=== PATIENT | male | born 1935 | race Caucasian/White ===

== ENCOUNTER 2020-01-27 18:03 | Emergency (ER) | payer MEDICARE, SELFPAY ==
[2020-01-27 18:05] VITALS: BP 144/75; PULSE 73; RESP 14; TEMP 36.6; O2SAT 98
--- NOTE | 2020-01-27 18:26 | ED.EYEPROB ---
HPI - Eye Problem General Chief complaint: Eye Problems Stated complaint: bleeding out of eye. Source: patient Mode of arrival: ambulatory Limitations: no limitations History of Present Illness HPI Narrative: this is an 84-year-old male patient presents to the emergency department with some recent left eyelid surgery, is currently on aspirin and has had a a dry piece of blood on his left lower eyelid with a subconjunctival redness and hematoma no visual disturbance no fever or chills no other source of bleeding. chief complaint: other ( Mild bleeding from his left eyelid and sub conjunctival hematoma) Onset (ago): hour(s) Onset description: gradual Duration: improved Location: left eye Eye Symptoms: redness Place: home Mechanism: other ( recent eyelid surgery on the left eye) Severity: mild Associated symptoms: none Treatments Prior to Arrival: none Related Data Home Medications Medication Instructions Recorded Confirmed Centrum Silver Men 1 tablet PO DAILY 09/13/19 01/27/20 donepezil 10 mg PO DAILY 09/13/19 01/27/20 ipratropium-albuterol 3 ml INHALATION Q4H PRN 09/13/19 01/27/20 lisinopril 5 mg PO DAILY 09/13/19 01/27/20 memantine 10 mg PO DAILY 09/13/19 01/27/20 metformin 500 mg PO DAILY 09/13/19 01/27/20 pantoprazole 40 mg PO DAILY 09/13/19 01/27/20 ropinirole 4 mg PO HS 09/13/19 01/27/20 tamsulosin 0.4 mg capsule 0.4 mg PO .twice daily cap 09/22/19 01/27/20 Allergies Allergy/AdvReac Type Severity Reaction Status Date / Time Penicillins Allergy Intermediate Unknown Verified 11/10/19 08:00 Review of Systems Review of Systems: All systems reviewed & are unremarkable except as noted in HPI and below PMFSH Past Medical History Medical History Arthritis Community acquired pneumonia (~09/13/19) Diabetes mellitus Hypertension Surgical History Surgical History History of back surgery History of knee replacement Hx of cholecystectomy Hx of tonsillectomy S/P cataract surgery Family History Family History Mother Family history of coronary artery disease Father , father of metastatic lung cancer Family history of coronary artery disease Other Family history of malignant neoplasm Social History Social History Smoking status: Never smoker Alcohol intake: never Substance use: never Gender identity (if verbalized by the patient): Male Spiritual care concerns: No Agree to blood products: Yes Exam Const: General: no acute distress HENMT: Head: normal to inspection Other: Left subconjunctival hematoma Eyes: Conjunctivae: conjunctivae normal Pupils: Equal, round and reactive pupils present Neck: Neck: normal visual inspection Chest: Chest palpation & inspection: normal inspection of the chest Cardio: Rate: regular rate Rhythm: regular rhythm Skin: General skin exam: normal color Rashes: no rashes Neuro: General: patient oriented x3, moves all extremities, no meningeal signs and no focal motor deficits Extrem: General: normal to inspection Psych: Mental Status: mental status grossly normal Thought content: Yes Normal thought content present Course Course Emergency Course: patient advised to stop his aspirin, and the patient told me that he had stopped the aspirin already, there is a dry piece of blood that is cleansed and has a subconjunctival hematoma with no visual disturbances. Critical Care Time Critical Care Time Critical Care Time: No Discharge Plan Discharge Clinical Impression: Subconjunctival hemorrhage Patient Disposition: Home, Self-Care Condition: Stable Instructions: Antibiotic Form, Subconjunctival Hemorrhage (ED) Additional Instructions: Follow-up with information receptionist as soon as possible
[2020-01-27 18:37] VITALS: RESP 15; O2SAT 98
[2020-01-27] MEDS: CIPROFLOXACIN HCL 0.3% OP SOLN 2.5 ML BTL 2 DROP EACH EYE (18:37)
== END 2020-01-27 18:39 | disposition home or self-care (01) ==
PROVIDERS: Emergency Provider Emergency Medicine; PCP Family Medicine
DX: H11.32 Conjunctival hemorrhage, left eye (principal)
CPT/HCPCS: 99283

== ENCOUNTER 2020-05-12 19:08 | Emergency (ER) | payer MEDICARE, SELFPAY ==
--- NOTE | ~2020-05-12 | CT_ITS ---
EXAMINATION: CT thoracic lumbar wo con EXAM DATE: 05/12/2020 20:30 INDICATION: Sudden onset low back pain, leg weakness. TECHNIQUE: Spiral CT thoracolumbar spine was performed without contrast. Axial, coronal and sagittal images of the thoracic spine were reviewed. Axial, coronal and sagittal images of the lumbar spine we re reviewed. The dose-length product (DLP) for this examination was 2170.78 mGy-cm. The exposure was tailored according to patient size (auto mA exposure control), and iterative reconstruction (ASIR) w as used as additional dose reduction technique. Comparison made to prior lumbar spine x-ray 9 FINDINGS: THORACIC SPINE: The vertebral bodies are aligned in the AP dimension. Small to moderate-sized thoraci c endplate osteophytes. There are no acute fractures identified. No endplate erosive change. Up to mo derate lower thoracic neural foraminal stenosis at T10-11 and T11-12. No evidence of significant cent ral canal stenosis. Paraspinal soft tissue is unremarkable. Right nephrolithiasis. There are cholecys tectomy clips. LUMBAR SPINE: There is mild to moderate lumbar dextroscoliosis. There is moderate to severe disc dise ase L-1-L5. L4 and L5 laminectomies. There is 4 mm retrolisthesis L3 on L4 and L4 on L5. No endplate erosive change. There are no acute fractures identified. Level by level evaluation: L1-L2: There is a mild to moderate diffuse disc bulge. Facet arthropathy: Mild to moderate. Neural foraminal stenosis: Mild to moderate right, mild left. Central canal stenosis: Mild to moderate. L2-L3: There is a moderate diffuse disc bulge. Facet arthropathy: Mild to moderate. Neural foraminal stenosis: Mild bilateral. Central canal stenosis: Mild to moderate. L3-L4: There is a moderate to large diffuse disc bulge. Facet arthropathy: Moderate to severe. Neural foraminal stenosis: Moderate to severe bilateral. Central canal stenosis: Moderate to severe. L4-L5: There is a moderate diffuse disc bulge. Facet arthropathy: Moderate to severe. Neural foraminal stenosis: Moderate to severe left, moderate right. Central canal stenosis: Mild to moderate, some posterior decompression. L5-S1: There is a moderate diffuse disc bulge. Facet arthropathy: Severe. Neural foraminal stenosis: Moderate to severe bilateral. Central canal stenosis: Moderate, some posterior decompression. Lumbar spine appears unchanged compared to prior study. IMPRESSION: 1. Advanced lumbar spondylosis. 2. Mild to moderate thoracic spondylosis. 3. No acute findings. Reviewed, dictated and finalized at location A.
[2020-05-12 19:19] VITALS: BP 151/76; PULSE 66; RESP 18; TEMP 36.5; O2SAT 96
[2020-05-12 19:42] LABS: Add Urine Microscopic? YES; Appearance Urine Clear (Clear); Bilirubin Urine Negative (Negative); Blood Urine Negative (Negative); Color Urine Yellow (Yellow); Glucose Urine UA Trace (Negative); Ketones Urine Negative (Negative); Leukocyte Esterase Ur Negative (Negative); Nitrate Urine Negative (Negative); Protein Urine Negative (Negative); Specific Grav Ur >= 1.030 (1.010-1.020)
[2020-05-12 19:47] LABS: Bacteria Urine None seen /hpf; Mucus Urine None seen /lpf; RBC Urine None seen /hpf (0-2); Squamous Epithelial Cell Urine Rare /hpf (Few); WBC Urine None seen /hpf (0-3)
--- NOTE | 2020-05-12 19:55 | ED.BACK ---
HPI - Back Pain/Injury General Chief Complaint: Back Pain/Injury Stated Complaint: back pain Time Seen by Provider: 05/12/20 19:55 Source: patient Mode of arrival: ambulatory Limitations: no limitations History of Present Illness HPI Narrative: 84-year-old man with a history of back pain jazzy distant history of back surgery comes in today complaining of low back pain that started when he went to lay down earlier today. Patient states that he feels weak in his legs but he has no perineal numbness, radiating pain, numbness in his lower extremities, and has had no recent trauma. MD elicited complaint: back pain Pertinent past history: prior back pain and back surgery Onset (ago): hour(s) (1) Timing: constant Severity: severe Similar Symptoms Previously: Yes Quality: sharp and aching Location: lumbar spine Radiation: none Exacerbating factors: movement and walking Relieving factors: none Context: bending Related Data Home Medications Medication Instructions Recorded Confirmed Centrum Silver Men 1 tablet PO DAILY 09/13/19 05/12/20 ipratropium-albuterol 3 ml INHALATION Q4H PRN 09/13/19 05/12/20 metformin 500 mg PO DAILY 09/13/19 05/12/20 ropinirole 4 mg PO HS 09/13/19 05/12/20 tamsulosin 0.4 mg capsule 0.4 mg PO .twice daily cap 09/22/19 05/12/20 Allergies Allergy/AdvReac Type Severity Reaction Status Date / Time Penicillins Allergy Intermediate Unknown Verified 01/28/20 14:42 Review of Systems Constitutional: Constitutional: Denies chills and Denies fever(s) ENT: Denies dysphagia, Denies nasal congestion and Denies sore throat Cardiovascular: Cardiovascular: Denies chest pain and Denies radiating jaw, neck or arm pain Respiratory: Respiratory: Denies cough, Denies dyspnea and Denies wheezing Gastrointestinal: Gastrointestinal: Denies abdominal pain, Denies diarrhea, Denies nausea and Denies vomiting Musculoskeletal: Musculoskeletal: Reports as per HPI, Denies arthralgias, Denies joint swelling and Reports muscle cramps Integumentary/Breasts: Skin/Breast: Denies pruritus, Denies erythema and Denies rash Neurologic: Denies vertigo, Denies dizziness, Denies syncope, Denies focal weakness and Reports weakness Hematologic/Lymphatic: Hematologic/Lymphatic: Denies easy bleeding and Denies easy bruising Allergic/Immunologic: Allergic/Immunologic: Denies lip swelling and Denies wheezing PMFSH Past Medical History Medical History Arthritis Community acquired pneumonia (~09/13/19) Diabetes mellitus Hypertension Surgical History Surgical History History of back surgery History of knee replacement Hx of cholecystectomy Hx of tonsillectomy S/P cataract surgery Social History Social History Smoking status: Never smoker Alcohol intake: never Substance use: never Gender identity (if verbalized by the patient): Male Spiritual care concerns: No Agree to blood products: Yes Exam Const: General: healthy appearing and alert Orientation/consciousness: patient oriented x3 Limitations: no limitations Other: Moderate acute distress HENMT: Head: normal to inspection Face and sinus: normal facial exam Mouth: Yes moist mucous membranes Throat: posterior oropharynx normal Eyes: Conjunctivae: conjunctivae normal Pupils: Equal, round and reactive pupils present EOM: EOMs intact bilaterally Resp: Effort & Inspection: normal respiratory effort and not labored Auscultation: clear to auscultation bilaterally, no rales, no rhonchi and no wheezes Cardio: Rate: regular rate Rhythm: regular rhythm Heart sounds: no murmurs GI: Inspection: non-distended Auscultation: normal bowel sounds Other: nontender, nondistended, no masses Skin: General skin exam: normal color, no jaundice and no pallor Rashes: no rashes Neuro: General: patient orient
[2020-05-12] MEDS: methylPREDNISolone ACETATE 40 MG/ML VIAL 80 MG IM (20:08)
[2020-05-12 21:15] VITALS: BP 162/76; PULSE 69; RESP 18; O2SAT 98
== END 2020-05-12 21:20 | disposition home or self-care (01) ==
PROVIDERS: Emergency Provider Emergency Medicine; PCP Family Medicine
DX: M54.5 Low back pain (principal); E11.9 Type 2 diabetes mellitus without complications; I10 Essential (primary) hypertension
CPT/HCPCS: 72128; 72131; 81001; 87086; 96372; 99283; 99284; J1030

== ENCOUNTER 2020-05-22 13:13 | Outpatient (RCR) | payer MEDICARE, SELFPAY ==
--- NOTE | 2020-05-22 14:07 | PTOPEVAL ---
Thank you for referring Neil Wharton to [facility].? The patient is scheduled to be seen for therapy? __2__x/week for __12_ visits. Please review, sign, date and return this plan of care SUZANNE. I agree with and certify that the following plan of care is medically necessary. Referring Physician Date Admitting Provider: Attending Provider: Beau Greco MD Referring Provider: *PT Outpatient Evaluation Start: 05/22/20 13:00 Freq: Status: Active Protocol: Document 05/22/20 13:00 ANTONI (Rec: 05/22/20 14:05 ANTONI [id number]) Therapy Assessment Status Assessment Status Assessment Status Evaluation Outpatient Past Medical History Cardiovascular History Hx Coronary Artery Disease Yes Hx Hypertension Yes Respiratory History Hx Sleep Apnea Yes Gastrointestinal History Hx Cholecystectomy Yes Hx Gastroesophageal Reflux Disease Yes Musculoskeletal History Hx Back Injury Yes Hx Back Pain Yes Endocrine History Hx Diabetes Yes HEENT History Hx Cataracts Yes Psychosocial History Hx Depression Yes Evaluation Information Problem Diagnosis low back pain, spondylosis with myelopathy or radiculopathy Onset 05/17/20 Additional Evaluation Detail Oswestry= 54% Subjective Information Pt. reports having years of Query Text:As Reported By Patient/ low back pain. He states that Family he had recent xray that revealed severe arthritis in the lumbar spine. He reports that pain has worsened and he can only stand for approximately 5 minutes before having to sit due to pain. He reports that he requires use of a cane due to pain wtih standing. He reports that he has no difficulty with sleeping at night. He reports that he does sleep in a recliner. He reports that his goal is to be able to stand longer and decrease his low back pain. 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
--- NOTE | 2020-08-11 11:30 | PCPTNOTE ---
Mr. Wharton attended a total of 6 treatment sessions from 05/22/20 to 06/08/20. He has failed to return to the clinic and will be discharged from our care. Refer to patients last daily note for discharge status. Thank you for the referral of this patient. Uriel Escalante, MPT
== END 2020-06-08 14:49 | disposition home or self-care (01) ==
LOC: CHSPT 13:13
PROVIDERS: PCP Family Medicine; Visit Provider Family Medicine
DX: M47.816 Spondylosis without myelopathy or radiculopathy, lumbar region (principal)
CPT/HCPCS: 97014; 97110; 97161; 97530; G0283

== ENCOUNTER 2020-08-02 14:08 | Outpatient (CLI) | payer MEDICARE, SELFPAY ==
[2020-08-02 14:19] LABS: Basophils Absolute Auto 0.05 K/mm3 (0.00-0.10); Basophils Percent Auto 0.8 % (0.0-1.0); Eosinophils Absolute Auto 0.07 K/mm3 (0.02-0.50); Eosinophils Percent Auto 1.2 % (1.0-6.0); Hematocrit 32.2 % (37.0-46.0); Hemoglobin 10.7 g/dL (12.4-15.3); Immature Granulocyte Absolute 0.02 K/mm3 (0.00-0.00); Immature Granulocyte Percent A 0.3 % (0.0-0.0); Lymphocytes Absolute Auto 1.42 K/mm3 (1.10-4.50); Lymphocytes Percent Auto 23.6 % (18.0-42.0); Mean Corpuscular HGB Conc 33.2 g/dL (32.0-36.0); Mean Corpuscular Hemoglobin 35.3 pg (27.0-31.0); Mean Corpuscular Volume 106.3 fL (78.0-102.0); Mean Platelet Volume 10.3 fl (8.7-11.0); Monocytes Absolute Auto 0.47 K/mm3 (0.10-0.90); Monocytes Percent Auto 7.8 % (2.0-11.0); Neutrophils Percent Auto 66.3 % (50.0-70.0); Nucleated Red Blood Cells Absolute Auto 0.02 K/mm3 (0.00-0.00); Nucleated Red Blood Cells Perc 0.3 % (0-0.0); Platelet Count Result 231 K/mm3 (150-420); Red Blood Count 3.03 M/mm3 (4.70-6.10); Red Cell Distribution Width 16.1 % (11.6-14.4)
[2020-08-02 15:27] LABS: Alanine Aminotransferase 25 U/L (16-63); Albumin Level 4.1 g/dL (3.4-5.0); Alkaline Phosphatase 62 U/L (46-116); Anion Gap 9 mmol/L (8-16); Aspartate Amino Transferase 16 U/L (15-37); Bilirubin,Total 0.8 mg/dL (0.00-1.00); Blood Urea Nitrogen 23 mg/dL (7-18); Calcium 9.1 mg/dL (8.5-10.1); Carbon Dioxide 28 mmol/L (21-32); Chloride 103 mmol/L (98-108); Estimated Glomerular Filt Rate 45; Ferritin 598 ng/mL (26-388); Glucose 120 mg/dL (70-99); Iron 149 ug/dL (65-175); Osmolality Calculated 294 mOsm/kg (285-295); Percent Iron Saturation 52 % (12-57); Potassium 4.3 mmol/L (3.5-5.1); Sodium 140 mmol/L (136-145); Total Protein 6.9 g/dL (6.4-8.2)
[2020-08-02 15:38] LABS: Folic Acid > 20.0 ng/mL (8.6->20); Vitamin B12 > 2000 pg/mL (193-986)
[2020-08-02 17:09] LABS: Thyroid Stimulating Hormone Reflex 1.47 u/IU/mL (0.36-3.74)
[2020-08-09 11:16] LABS: Vitamin D 25 Hydroxy 33 ng/mL (30-100)
== END 2020-08-02 14:09 | disposition home or self-care (01) ==
LOC: CHSLAB 14:09
PROVIDERS: PCP Family Medicine; Visit Provider Family Medicine
DX: R53.1 Weakness (principal); I10 Essential (primary) hypertension; E11.9 Type 2 diabetes mellitus without complications; E55.9 Vitamin D deficiency, unspecified
CPT/HCPCS: 36415; 80053; 82306; 82607; 82728; 82746; 83540; 83550; 84443; 85025

== ENCOUNTER 2020-08-23 18:58 | Emergency (ER) | payer MEDICARE, SELFPAY ==
--- NOTE | ~2020-08-23 | XR_ITS ---
XR chest 1V 08/23/2020 21:32 Indication: Upper respiratory infection. Chest pain with cough. Procedure: Lateral view of the chest Comparison: 08/23/2020 and 09/15/2019 Findings: There is posterior basilar atelectasis. No focal pneumonia or effusion. There are wedge com pression deformities of the upper lumbar spine, likely chronic. Impression: 1: Posterior basilar atelectasis. Reviewed, dictated and finalized at location A. GREASER Impression: 1: Posterior basilar atelectasis.
--- NOTE | ~2020-08-23 | XR_ITS ---
XR chest 1V portable 08/23/2020 19:26 Indication: Chest pain with cough and shortness of breath Procedure: AP portable chest Comparison: Comparison to multiple prior studies sequentially, with oldest reviewed study dated 01/28. Findings: Heart size normal. No focal air space disease, pulmonary edema, pleural effusion or suspect ed pneumothorax. No acute osseous abnormality. Impression: 1: No acute cardiopulmonary disease. Reviewed, dictated and finalized at location A. TENANCE CARPENTER Impression: 1: No acute cardiopulmonary disease.
--- NOTE | 2020-08-23 19:06 | ECG_ITS ---
Measurements Intervals [place] Rate: 80 P: 53 VT: 152 QRS: -34 QRSD: 152 T: 12 QT: 402 QTc: 466 Interpretive Statements SINUS RHYTHM LEFT AXIS DEVIATION RIGHT BUNDLE BRANCH BLOCK VOLTAGE CRITERIA FOR LVH BASELINE ARTIFACT- II, III, AVF ABNORMAL ECG Electronically Signed On 08-24-2020 8:03:17 [employer] by Jony Mix D.O.
[2020-08-23 19:30] LABS: Basophils Absolute Auto 0.03 K/mm3 (0.00-0.10); Basophils Percent Auto 0.4 % (0.0-1.0); Eosinophils Absolute Auto 0.14 K/mm3 (0.02-0.50); Eosinophils Percent Auto 1.7 % (1.0-6.0); Hematocrit 30.8 % (37.0-46.0); Immature Granulocyte Absolute 0.05 K/mm3 (0.00-0.00); Immature Granulocyte Percent A 0.6 % (0.0-0.0); Lymphocytes Absolute Auto 1.31 K/mm3 (1.10-4.50); Lymphocytes Percent Auto 16.1 % (18.0-42.0); Mean Corpuscular HGB Conc 32.5 g/dL (32.0-36.0); Mean Corpuscular Volume 107.7 fL (78.0-102.0); Mean Platelet Volume 10.8 fl (8.7-11.0); Monocytes Percent Auto 8.6 % (2.0-11.0); Neutrophils Absolute Auto 5.9 K/mm3 (1.7-7.2); Neutrophils Percent Auto 72.6 % (50.0-70.0); Platelet Count Result 194 K/mm3 (150-420); Red Blood Count 2.86 M/mm3 (4.70-6.10); Red Cell Distribution Width 16.4 % (11.6-14.4); White Blood Count 8.1 K/mm3 (4.8-10.8)
[2020-08-23 19:47] LABS: Alanine Aminotransferase 17 U/L (16-63); Albumin Level 3.5 g/dL (3.4-5.0); Alkaline Phosphatase 56 U/L (46-116); Anion Gap 6 mmol/L (8-16); Aspartate Amino Transferase 14 U/L (15-37); Bilirubin,Total 0.8 mg/dL (0.00-1.00); Blood Urea Nitrogen 29 mg/dL (7-18); Calcium 8.4 mg/dL (8.5-10.1); Carbon Dioxide 29 mmol/L (21-32); Chloride 105 mmol/L (98-108); Estimated Glomerular Filt Rate 58; Glucose 135 mg/dL (70-99); Osmolality Calculated 297 mOsm/kg (285-295); Potassium 3.7 mmol/L (3.5-5.1); SARS-CoV-2 Ag Negative (Negative); Sodium 140 mmol/L (136-145); Total Protein 6.3 g/dL (6.4-8.2); Troponin I 11.3 ng/L (0.00-60.4)
[2020-08-23 19:49] LABS: BNP 181 pg/mL (0-100)
[2020-08-23 19:50] VITALS: BP 145/76; PULSE 96; RESP 20; TEMP 36.7; O2SAT 95
[2020-08-23 20:50] VITALS: BP 144/66; PULSE 77; RESP 20; O2SAT 98
[2020-08-23 21:50] VITALS: BP 154/69; PULSE 75; RESP 20; O2SAT 97
--- NOTE | 2020-08-23 22:05 | ED.URI ---
HPI - URI/Sore Throat General Chief Complaint: Upper Respiratory Infection Stated Complaint: Cough, trouble breathing Source: patient and family Mode of arrival: ambulatory Limitations: no limitations History of Present Illness HPI Narrative: Patient states he has had a severe cough for the past two days. This has been ongoing and wearing him out. He has had some chest soreness as well. MD elicited complaint: cough Pertinent past history: other (chills) Related Data Home Medications Medication Instructions Recorded Confirmed Centrum Silver Men 1 tablet PO DAILY 09/13/19 08/02/20 ipratropium-albuterol 3 ml INHALATION Q4H PRN 09/13/19 08/02/20 tamsulosin 0.4 mg capsule 0.4 mg PO .twice daily cap 09/22/19 08/02/20 fluticasone propionate [Flonase 2 spray INTRANASAL Q12HR 08/23/20 Allergy Relief] Allergies Allergy/AdvReac Type Severity Reaction Status Date / Time Penicillins Allergy Intermediate Unknown Verified 08/23/20 19:55 Review of Systems Constitutional: Comments: Fatigue secondary to coughing Eyes: Eyes: Reports no additional eye complaints ENT: Reports system reviewed and no additional complaints, except as documented Cardiovascular: Cardiovascular: Reports no additional cardiovascular complaints Respiratory: Respiratory: Reports no additional respiratory complaints Gastrointestinal: Gastrointestinal: Reports no additional gastrointestinal complaints Genitourinary: Genitourinary: Reports no additional male genitourinary complaints Musculoskeletal: Musculoskeletal: Reports no additional musculoskeletal complaints Integumentary/Breasts: Skin/Breast: Reports system reviewed and no additional complaints, except as docu Neurologic: Reports system reviewed and no additional complaints, except as documented Psychiatric: Psychiatric: Reports no additional psychiatric complaints Endocrine: Endocrine: Reports no additional endocrine complaints Hematologic/Lymphatic: Hematologic/Lymphatic: Reports no additional hematologic/lymphatic complaints Allergic/Immunologic: Allergic/Immunologic: Reports no additional allergic/immunologic complaints [facility] Past Medical History Medical History Arthritis Benign essential HTN Community acquired pneumonia (~09/13/19) Diabetes mellitus Hypertension Lumbar spondylosis Type 2 diabetes mellitus without complications Vitamin D deficiency, unspecified Surgical History Surgical History History of back surgery History of knee replacement Hx of cholecystectomy Hx of tonsillectomy S/P cataract surgery Family History Family History Mother Family history of coronary artery disease Father , father of metastatic lung cancer Family history of coronary artery disease Other Family history of malignant neoplasm Social History Social History Smoking status: Never smoker Alcohol intake: never Substance use: never Gender identity (if verbalized by the patient): Male Spiritual care concerns: No Agree to blood products: Yes Exam Const: General: no acute distress and alert Orientation/consciousness: patient oriented x3 HENMT: Head: normal to inspection Face and sinus: normal facial exam Eyes: Conjunctivae: conjunctivae normal Neck: Neck: normal visual inspection Chest: Chest palpation & inspection: normal inspection of the chest Resp: Effort & Inspection: normal respiratory effort Auscultation: clear to auscultation bilaterally Cardio: Rate: regular rate Rhythm: regular rhythm GI: GI Palp: Yes Soft to palpation Auscultation: normal bowel sounds Other: non tender Skin: General skin exam: normal color Neuro: General: patient oriented x3 and moves all extremities Extrem: General: normal to inspection Psych: Ap
[2020-08-23] MEDS: ACETAMINOPHEN/CODEINE (*CRX) 300/30 MG TABLET 1 TAB (22:13)
[2020-08-23] MEDS: AZITHROMYCIN 250 MG TABLET 500 MG PO (22:13)
[2020-08-23 22:20] VITALS: BP 142/70; PULSE 73; RESP 20; O2SAT 97
== END 2020-08-23 22:30 | disposition home or self-care (01) ==
PROVIDERS: Emergency Provider Emergency Medicine; PCP Family Medicine
DX: A37.90 Whooping cough, unspecified species without pneumonia (principal); R53.1 Weakness
CPT/HCPCS: 36415; 71045; 80053; 83880; 84484; 85025; 87426; 93005; 99283; 99284; A9270

== ENCOUNTER 2021-01-17 15:46 | Outpatient (CLI) | payer MEDICARE, SELFPAY ==
--- NOTE | ~2021-01-17 | XR_ITS ---
EXAMINATION: XR chest 2V DATE: 01/17/2021 17:51 INDICATION: Cough and fever TECHNIQUE: PA and lateral views of the chest are obtained. COMPARISON: 08/23/2020 FINDINGS: The lungs are free of acute opacities. There is no pleural effusion or pneumothorax. The ca rdiomediastinal silhouette is normal. There is moderate thoracic spondylosis. IMPRESSION: 1. No acute cardiopulmonary abnormality. Reviewed, dictated and finalized at location A.
[2021-01-17 18:32] LABS: Basophils Absolute Auto 0.01 K/mm3 (0.00-0.10); Basophils Percent Auto 0.3 % (0.0-1.0); Eosinophils Absolute Auto 0.05 K/mm3 (0.02-0.50); Eosinophils Percent Auto 1.6 % (1.0-6.0); Hematocrit 33.1 % (37.0-46.0); Hemoglobin 10.9 g/dL (12.4-15.3); Immature Granulocyte Absolute 0.01 K/mm3 (0.00-0.00); Immature Granulocyte Percent A 0.3 % (0.0-0.0); Lymphocytes Percent Auto 36.1 % (18.0-42.0); Mean Corpuscular HGB Conc 32.9 g/dL (32.0-36.0); Mean Corpuscular Hemoglobin 34.6 pg (27.0-31.0); Mean Corpuscular Volume 105.1 fL (78.0-102.0); Mean Platelet Volume 10.5 fl (8.7-11.0); Monocytes Absolute Auto 0.39 K/mm3 (0.10-0.90); Monocytes Percent Auto 12.8 % (2.0-11.0); Neutrophils Absolute Auto 1.5 K/mm3 (1.7-7.2); Neutrophils Percent Auto 48.9 % (50.0-70.0); Platelet Count Result 180 K/mm3 (150-420); Red Blood Count 3.15 M/mm3 (4.70-6.10); Red Cell Distribution Width 16.8 % (11.6-14.4); White Blood Count 3.1 K/mm3 (4.8-10.8)
[2021-01-17 18:56] LABS: Alanine Aminotransferase 25 U/L (16-63); Albumin Level 3.6 g/dL (3.4-5.0); Alkaline Phosphatase 59 U/L (46-116); Anion Gap 7 mmol/L (8-16); Aspartate Amino Transferase 22 U/L (15-37); Bilirubin,Total 0.6 mg/dL (0.00-1.00); Blood Urea Nitrogen 35 mg/dL (7-18); Calcium 8.1 mg/dL (8.5-10.1); Carbon Dioxide 29 mmol/L (21-32); Chloride 103 mmol/L (98-108); Estimated Glomerular Filt Rate 56; Glucose 111 mg/dL (70-99); Osmolality Calculated 297 mOsm/kg (285-295); Potassium 3.8 mmol/L (3.5-5.1); Sodium 139 mmol/L (136-145); Total Protein 6.9 g/dL (6.4-8.2)
[2021-01-17 19:26] LABS: SARS-CoV-2 RNA PCR Positive (Negative)
== END 2021-01-17 15:47 | disposition home or self-care (01) ==
LOC: CHSLAB 15:48
PROVIDERS: PCP Internal Medicine; Visit Provider Internal Medicine
DX: Z20.822 Contact with and (suspected) exposure to COVID-19 (principal); R05 Cough
CPT/HCPCS: 36415; 71046; 80053; 85025; C9803; U0003; U0005

== ENCOUNTER 2021-01-18 10:44 | Emergency (ER) | payer MEDICARE, SELFPAY ==
[2021-01-18 11:15] VITALS: BP 132/76; PULSE 80; RESP 16; TEMP 36.6; O2SAT 100
--- NOTE | 2021-01-18 11:46 | ED.SOB ---
HPI - SOB/Dyspnea General Chief Complaint: Shortness of Breath/Dyspnea Stated Complaint: SOB Source: patient and family Mode of arrival: ambulatory Limitations: no limitations History of Present Illness HPI Narrative: Patient recently diagnosed with some COVID currently no shortness of breath satting at 100% has a mild nonproductive cough with no fever chills no chest pain no shortness of breath no nausea vomiting abdominal pain. Patient was advised to come to the emergency department has been diagnosed with COVID appears comfortable and stable with a nonproductive cough received 1st dose of vaccine. MD elicited complaint: shortness of breath and cough Onset (ago): day(s) Related Data Home Medications Medication Instructions Recorded Confirmed Centrum Silver Men 1 tablet PO DAILY 09/13/19 01/18/21 ipratropium-albuterol 3 ml INHALATION Q4H PRN 09/13/19 01/18/21 fluticasone propionate [Flonase 2 spray INTRANASAL Q12HR 08/23/20 01/18/21 Allergy Relief] Allergies Allergy/AdvReac Type Severity Reaction Status Date / Time Penicillins Allergy Intermediate Unknown Verified 09/08/20 14:51 Review of Systems Review of Systems: All systems reviewed & are unremarkable except as noted in HPI and below PMFSH Past Medical History Medical History Arthritis Benign essential HTN Community acquired pneumonia (~09/13/19) Diabetes mellitus Hypertension Lumbar spondylosis Type 2 diabetes mellitus without complications Vitamin D deficiency, unspecified Surgical History Surgical History History of back surgery History of knee replacement Hx of cholecystectomy Hx of tonsillectomy S/P cataract surgery Family History Family History Mother Family history of coronary artery disease Father , father of metastatic lung cancer Family history of coronary artery disease Other Family history of malignant neoplasm Social History Social History Smoking status: Never smoker Alcohol intake: never Substance use: never Gender identity (if verbalized by the patient): Male Spiritual care concerns: No Agree to blood products: Yes Exam Const: General: no acute distress Orientation/consciousness: patient oriented x3 HENMT: Head: normal to inspection Eyes: Conjunctivae: conjunctivae normal Pupils: Equal, round and reactive pupils present Chest: Chest palpation & inspection: normal inspection of the chest Resp: Effort & Inspection: normal respiratory effort Auscultation: clear to auscultation bilaterally Cardio: Rate: regular rate Rhythm: regular rhythm Urinary Catheter: Urinary Catheter: patent and draining Neuro: General: patient oriented x3 and moves all extremities Extrem: General: normal to inspection and no pedal edema Psych: Mental Status: mental status grossly normal Affect: normal affect Course Course Emergency Course: Patient resting comfortably in no acute distress has a nonproductive cough with no shortness of breath advised to self quarantine and follow-up primary care physician. Vital Signs Vital signs: Vital Signs Temperature 36.6 C 01/18/21 11:15 Pulse Rate 80 01/18/21 11:15 Respiratory Rate 16 01/18/21 11:15 Blood Pressure 132/76 01/18/21 11:15 Pulse Oximetry 100 01/18/21 11:15 Temperature 36.6 C 01/18/21 11:15 Pulse Rate 80 01/18/21 11:15 Respiratory Rate 16 01/18/21 11:15 Blood Pressure 132/76 01/18/21 11:15 Pulse Oximetry 100 01/18/21 11:15 Critical Care Time Critical Care Time Critical Care Time: No Discharge Plan Discharge Clinical Impression: Weakness Patient Disposition: Home, Self-Care Condition: Stable Instructions: Antibiotic Form, Weakness (ED) Additional Instructions
[2021-01-18 12:02] VITALS: RESP 15; O2SAT 100
== END 2021-01-18 12:04 | disposition home or self-care (01) ==
PROVIDERS: Emergency Provider Emergency Medicine; PCP Internal Medicine
DX: R53.1 Weakness (principal)
CPT/HCPCS: 99283

== ENCOUNTER 2021-02-16 15:16 | Outpatient (CLI) | payer MEDICARE, SELFPAY ==
--- NOTE | ~2021-02-16 | XR_ITS ---
XR hip BI wo pelvis DATE: 02/16/2021 15:44 INDICATION: Chronic back pain radiating down both hips TECHNIQUE: AP and lateral views of each hip COMPARISON: None FINDINGS: Bilateral mild hip osteoarthritis. Osteopenia. No fracture or dislocation, avascular necrosis or bone destruction of either hip is evident. Extensive bilateral iliac and femoral artery calcifications. IMPRESSION: Osteopenia Mild bilateral hip osteoarthritis Reviewed, dictated and finalized at location A.
--- NOTE | ~2021-02-16 | XR_ITS ---
XR lumbar spine 2-3V DATE: 02/16/2021 15:44 INDICATION: Chronic back pain radiating to both hips TECHNIQUE: AP, lateral, coned lateral lumbosacral views COMPARISON: 08/30/2018 lumbar spine 05/12/2020 CT thoracic and lumbar FINDINGS: Diffuse osteopenia. There is prominent rotatory dextroscoliosis and severe degenerative disc disease throughout the lumba r spine. There is mild retrolisthesis at L3-4 and L4-5. No fracture or bone destruction is evident. The sacroiliac joints are intact. There is extensive calcification of the abdominal aorta and iliac arteries; no apparent abdominal aor tic aneurysm. Status post cholecystectomy. 8 mm calcified right renal calculus. IMPRESSION: Osteopenia Prominent rotatory dextroscoliosis of the lumbar spine Severe degenerative disc disease throughout the lumbar spine Reviewed, dictated and finalized at location A.
== END 2021-02-16 15:17 | disposition home or self-care (01) ==
LOC: CHSIMG 15:18
PROVIDERS: PCP Internal Medicine; Visit Provider Internal Medicine
DX: M54.9 Dorsalgia, unspecified (principal)
CPT/HCPCS: 72100; 73521

== ENCOUNTER 2021-03-28 07:17 | Outpatient (CLI) | payer MEDICARE, SELFPAY ==
--- NOTE | ~2021-03-28 | MR_ITS ---
EXAMINATION: MR lumbar spine wo con EXAM DATE: 03/28/2021 08:15 INDICATION: New onset low back pain bilaterally pain for 2 months. Surgery in 1999. TECHNIQUE: Multi-sequential, multiplanar MR images of the lumbar spine were obtained without contrast . Sagittal T1, T2, T2 fat saturation images. Axial T2 weighted images. Comparison is made to prior examination from 12/20/2017. FINDINGS: Moderate lumbar dextroscoliosis. There is some left lateral subluxation L2 on L3. There is moderate to severe disc disease L1-L5. There is 7 mm retrolisthesis L3 on L4 and 5 mm retrolisthesis L4 on L5. The conus medullaris terminates at the L1/2 level and has normal signal intensity and morph ology. There are no focal marrow signal abnormalities suspicious for malignancy or acute fracture. T here is sizable lesion superior pole right kidney, image portion is consistent with cyst. Paraspinal soft tissue is unremarkable. No evidence of lower lumbar laminectomies, L4 and L5. Level by level evaluation: T12-L1: Disc does not extend beyond the endplate margin. Facet arthropathy: Mild bilateral. Neural foraminal stenosis: No stenosis. Central canal stenosis: No stenosis. L1-L2: There is a mild to moderate diffuse disc bulge. Facet arthropathy: Mild. Neural foraminal stenosis: Mild to moderate right. Central canal stenosis: Mild. L2-L3: There is a moderate diffuse disc bulge. Facet arthropathy: Mild to moderate. Neural foraminal stenosis: Mild bilateral. Central canal stenosis: Mild to moderate. L3-L4: There is a moderate diffuse disc bulge. Facet arthropathy: Moderate left, mild right. Neural foraminal stenosis: Moderate to severe left, moderate right. Central canal stenosis: Moderate, particularly left lateral recess. L4-L5: There is a moderate diffuse disc bulge. Facet arthropathy: Moderate left, mild right. Neural foraminal stenosis: Moderate to severe moderate to severe bilateral. Central canal stenosis: Mild to moderate, posterior decompression. L5-S1: There is a moderate diffuse disc bulge. Facet arthropathy: Moderate to severe. Neural foraminal stenosis: Moderate to severe right, moderate left. Central canal stenosis: Mild to moderate, posterior decompression. Mild progression of spondylosis at some of the levels compared to 2018. IMPRESSION: 1. Moderate lumbar dextroscoliosis. 2. Severe spondylosis, mild progression compared to 2018 Reviewed, dictated and finalized at location B.
== END 2021-03-28 07:18 | disposition home or self-care (01) ==
LOC: CHSIMG 07:18
PROVIDERS: PCP Internal Medicine; Visit Provider Internal Medicine
DX: M48.00 Spinal stenosis, site unspecified (principal)
CPT/HCPCS: 72148

== ENCOUNTER 2021-05-28 10:41 | Emergency (ER) | payer MEDICARE, SELFPAY ==
--- NOTE | ~2021-05-28 | CT_ITS ---
EXAMINATION: CT brain wo con EXAM DATE: 05/28/2021 12:30 INDICATION: Left-sided paresthesia, hemiparesis, left ear pressure. Symptoms one day. Shortness of br eath, midsternal chest pain. TECHNIQUE: Spiral CT of the head was performed without contrast. Axial, coronal and sagittal images were reviewed. The dose-length product (DLP) for this examination was 605.33 mGy-cm. The exposure w as tailored according to patient size, and iterative reconstruction (ASIR) was used as additional dos e reduction technique. Comparison is made to prior examination from 04/08/2019. FINDINGS: There is no acute intraparenchymal hemorrhage. No evidence of intraparenchymal brain mass lesion. No evidence of acute infarction. Please note that initial head CT has limited sensitivity f or small or acute infarctions. There is mild periventricular and subcortical hypodensity, nonspecific but probably related to small vessel ischemic disease. There is mild prominence of the sulci and v entricles related to cerebral atrophy. There is intracranial carotid arteriosclerosis. There are n o extra-axial collections. There is no mass effect or midline shift. Patient has had bilateral ocul ar lens surgery. Soft tissue is unremarkable. The visualized sinuses and mastoid air cells are well aerated. IMPRESSION: 1. No acute intracranial findings. 2. Chronic age related findings. Reviewed, dictated and finalized at location A.
--- NOTE | ~2021-05-28 | CT_ITS ---
EXAMINATION: CT diagnostic chest wo con EXAM DATE: 05/28/2021 12:30 INDICATION: Shortness of breath, epigastric pain. Left-sided body paresthesia. Left ear pressure. TECHNIQUE: Spiral CT of the chest without contrast. Axial, coronal and sagittal images of the chest were reviewed. Coronal maximum intensity pixel images of chest reviewed. The dose-length product ( DLP) for this examination was 392.75 mGy-cm. The exposure was tailored according to patient size (au to mA exposure control), and iterative reconstruction (ASIR) was used as additional dose reduction te chnique. Comparison is made to prior examination from 01/28/2019. FINDINGS: There is left basilar subsegmental atelectasis, elevated left hemidiaphragm which is uncha nged compared to previous examination. There is mild emphysema. There are no pleural or pericardial e ffusions. Tracheobronchial tree is patent. There is no mediastinal, hilar or axillary lymphadenop athy. There is no pneumothorax. Heart normal in size. There are dense coronary arteries, could be severe coronary arterial sclerosis and/or coronary artery stent(s), which are difficult to disting uish due to cardiac motion on this non-gated exam. Correlate with cardiac history and consider cardio logy consult if not recently evaluated. There are cholecystectomy clips. There is thoracic spondylo sis without osteoblastic or osteolytic lesions identified. IMPRESSION: 1. Chronic left hemidiaphragm elevation, adjacent subsegmental atelectasis. 2. Mild emphysema. Reviewed, dictated and finalized at location A.
[2021-05-28 11:15] VITALS: BP 142/70; PULSE 80; RESP 16; TEMP 36.4; O2SAT 96
--- NOTE | 2021-05-28 11:46 | ECG_ITS ---
Measurements Intervals [place] Rate: 67 P: 65 [place]: 181 QRS: -7 QRSD: 121 T: 64 QT: 426 QTc: 451 Interpretive Statements SINUS RHYTHM WITH SINUS ARRHYTHMIA INCOMPLETE RIGHT BUNDLE BRANCH BLOCK BORDERLINE ECG Electronically Signed On 05-28-2021 12:07:59 CDT by Jony Mix D.O.
[2021-05-28] MEDS: ONDANSETRON INJ 4 MG/2 ML VIAL IV PUSH (12:00)
[2021-05-28] MEDS: PANTOPRAZOLE SODIUM IV 40 MG VIAL IV PUSH (12:02)
[2021-05-28] MEDS: SODIUM CHLORIDE 0.9% IV 500 ML 999 ML IV CONT (12:05)
[2021-05-28] MEDS: ASPIRIN 325 MG ENTERIC TABLET PO (12:13)
[2021-05-28] MEDS: MAG HYDROX/ALUMINUM HYD/SIMETH 30 ML, PHENobarb/HYOSCY/ATROPINE/SCOP 32.4 MG, LIDOCAINE... PO (12:15)
[2021-05-28 12:19] LABS: Basophils Absolute Auto 0.04 K/mm3 (0.00-0.10); Basophils Percent Auto 0.8 % (0.0-1.0); Eosinophils Absolute Auto 0.03 K/mm3 (0.02-0.50); Eosinophils Percent Auto 0.6 % (1.0-6.0); Hematocrit 30.7 % (37.0-46.0); Hemoglobin 10.2 g/dL (12.4-15.3); Immature Granulocyte Absolute 0.04 K/mm3 (0.00-0.00); Immature Granulocyte Percent A 0.8 % (0.0-0.0); Lymphocytes Absolute Auto 0.72 K/mm3 (1.10-4.50); Lymphocytes Percent Auto 15.2 % (18.0-42.0); Mean Corpuscular HGB Conc 33.2 g/dL (32.0-36.0); Mean Corpuscular Hemoglobin 35.2 pg (27.0-31.0); Mean Corpuscular Volume 105.9 fL (78.0-102.0); Mean Platelet Volume 9.7 fl (8.7-11.0); Monocytes Absolute Auto 0.46 K/mm3 (0.10-0.90); Monocytes Percent Auto 9.7 % (2.0-11.0); Neutrophils Absolute Auto 3.4 K/mm3 (1.7-7.2); Neutrophils Percent Auto 72.9 % (50.0-70.0); Nucleated Red Blood Cells Absolute Auto 0.02 K/mm3 (0.00-0.00); Nucleated Red Blood Cells Perc 0.4 % (0-0.0); Platelet Count Result 199 K/mm3 (150-420); Red Cell Distribution Width 15.6 % (11.6-14.4); White Blood Count 4.7 K/mm3 (4.8-10.8)
[2021-05-28 12:40] LABS: Alanine Aminotransferase 31 U/L (16-63); Albumin Level 3.7 g/dL (3.4-5.0); Alkaline Phosphatase 52 U/L (46-116); Anion Gap 7 mmol/L (8-16); Aspartate Amino Transferase 15 U/L (15-37); Bilirubin,Total 0.6 mg/dL (0.00-1.00); Blood Urea Nitrogen 42 mg/dL (7-18); Calcium 8.3 mg/dL (8.5-10.1); Carbon Dioxide 30 mmol/L (21-32); Chloride 106 mmol/L (98-108); Estimated CRCL calculation 37 ml/min; Estimated Glomerular Filt Rate 56; Glucose 120 mg/dL (70-99); NT Pro B Type Natriuretic Pept 222 pg/mL (0-450); Osmolality Calculated 307 mOsm/kg (285-295); Potassium 4.6 mmol/L (3.5-5.1); Sodium 143 mmol/L (136-145); Total Protein 6.5 g/dL (6.4-8.2); Troponin I 13.6 ng/L (0.00-60.4)
[2021-05-28 14:04] LABS: Add Urine Microscopic? NO; Appearance Urine Clear (Clear); Bilirubin Urine Negative (Negative); Blood Urine Negative (Negative); Color Urine Light Yellow (Yellow); Glucose Urine UA Negative (Negative); Ketones Urine Negative (Negative); Leukocyte Esterase Ur Negative (Negative); Nitrate Urine Negative (Negative); Protein Urine Negative (Negative); Specific Grav Ur >= 1.030 (1.010-1.020); Urobilinogen Urine 0.2 mg/dL (0.2-1.0); pH Urine 5.5 (5.0-8.0)
[2021-05-28 14:04] LABS: SARS-CoV-2 Ag Negative (Negative)
--- NOTE | 2021-05-28 14:37 | ED.GENADULT ---
HPI - General Adult General Chief complaint: Unspecified Stated complaint: havent eaten/drank for 2 days/chills/lt side numb Time Seen by Provider: 05/28/21 10:43 Source: patient, family and RN notes reviewed Mode of arrival: wheelchair Limitations: no limitations History of Present Illness complaint: mild left sided numbness x 2 days. Pt has been using a cane for right weak Onset (ago): day(s) (2) Location: upper extremity and lower extremity Radiation: non-radiation Severity: mild Quality: other (no acute pain in the ED. chronic LBP. ) Relieving factors: none Exacerbating factors: none Associated symptoms: loss of appetite Treatments prior to arrival: none Related Data Home Medications Medication Instructions Recorded Confirmed Centrum Silver Men 1 tablet PO DAILY 09/13/19 05/28/21 ipratropium-albuterol 3 ml INHALATION Q4H PRN 09/13/19 05/28/21 fluticasone propionate [Flonase 2 spray INTRANASAL Q12HR 08/23/20 05/28/21 Allergy Relief] Allergies Allergy/AdvReac Type Severity Reaction Status Date / Time Penicillins Allergy Intermediate Unknown Verified 09/08/20 14:51 Review of Systems Review of Systems: All systems reviewed & are unremarkable except as noted in HPI and below Gastrointestinal: Gastrointestinal: Reports other (loss of appetite) PMFSH Past Medical History Medical History Arthritis Benign essential HTN Community acquired pneumonia (~09/13/19) Diabetes mellitus Hypertension Lumbar spondylosis Type 2 diabetes mellitus without complications Vitamin D deficiency, unspecified Surgical History Surgical History History of back surgery History of knee replacement Hx of cholecystectomy Hx of tonsillectomy S/P cataract surgery Family History Family History Mother Family history of coronary artery disease Father , father of metastatic lung cancer Family history of coronary artery disease Other Family history of malignant neoplasm Social History Social History Smoking status: Never smoker Alcohol intake: never Substance use: never Gender identity (if verbalized by the patient): Male Spiritual care concerns: No Agree to blood products: Yes Exam Const: General: cooperative and no acute distress Nutritional Appearance: well nourished Orientation/consciousness: patient oriented x3 HENMT: Head: normal to inspection, normocephalic and atraumatic Ears: hearing grossly normal bilaterally, external ears normal and TM's normal bilaterally General nose exam: Normal external nose present and Normal nares present Face and sinus: normal facial exam Mouth: Yes Normal oral and palatal mucosa present, Yes lip normal, Yes tongue normal, Yes oropharynx normal and Yes moist mucous membranes abnormal Teeth and gingiva: dentition normal and gingiva normal Throat: posterior oropharynx normal Eyes: General: appearance normal, both eyes and all related structures Visual Owens: normal visual owens by confrontation Eyelids: eyelids normal Conjunctivae: conjunctivae normal Sclera: sclerae normal Cornea: corneas normal Pupils: Equal, round and reactive pupils present EOM: EOMs intact bilaterally Neck: Neck: normal visual inspection, full ROM and no lymphadenopathy Chest: Chest palpation & inspection: normal inspection of the chest and normal palpation of entire chest wall Resp: Effort & Inspection: normal respiratory effort and able to speak in complete sentences Auscultation: clear to auscultation bilaterally Percussion: percussion normal Cardio: Jugular venous distension: no JVD Palpation: normal PMI Rate: regular rate Rhythm: regular rhythm GI: Inspection: normal to inspection GI Palp: No abdominal tenderness and Yes Soft to pal
[2021-05-28 14:55] VITALS: BP 133/62; PULSE 64; RESP 14; O2SAT 94
== END 2021-05-28 15:39 | disposition home or self-care (01) ==
PROVIDERS: Emergency Provider Emergency Medicine; PCP Internal Medicine
DX: R53.1 Weakness (principal); I10 Essential (primary) hypertension; E11.9 Type 2 diabetes mellitus without complications; E55.9 Vitamin D deficiency, unspecified
CPT/HCPCS: 36415; 70450; 71250; 80053; 81003; 83880; 84484; 85025; 87426; 93005; 96361; 96374; 96375; 99283; 99284; A9270; C9113; C9803; J2405; J7040

== ENCOUNTER 2021-08-30 11:07 | Outpatient (CLI) | payer MEDICARE, SELFPAY | END 2021-08-30 11:08 | disposition home or self-care (01) | LOC: CHSLAB 11:08 | PROVIDERS: PCP Internal Medicine; Visit Provider Internal Medicine | DX: E11.69 Type 2 diabetes mellitus with other specified complication (principal) | CPT/HCPCS: 36415; 83036 ==

== ENCOUNTER 2021-09-25 13:48 | Outpatient (CLI) | payer MEDICARE, SELFPAY ==
--- NOTE | ~2021-09-25 | XR_ITS ---
EXAMINATION: XR chest 2V EXAM DATE: 09/25/2021 14:11 INDICATION: Cough. Chills. TECHNIQUE: Frontal and lateral projections of the chest obtained and reviewed. Comparison is made to prior examination from 01/17/2021. FINDINGS: The lungs are clear. There are no pleural effusions. The cardiomediastinal silhouette is within normal limits. There is no pneumothorax suspected. There are bony degenerative changes. Ther e are cholecystectomy clips. There is no significant interval change. IMPRESSION: No acute cardiopulmonary findings. Reviewed, dictated and finalized at location A. M AND POWER SUPERINTENDENT
[2021-09-25 14:25] LABS: Basophils Absolute Auto 0.07 K/mm3 (0.00-0.10); Basophils Percent Auto 1.1 % (0.0-1.0); Eosinophils Absolute Auto 0.06 K/mm3 (0.02-0.50); Eosinophils Percent Auto 0.9 % (1.0-6.0); Hemoglobin 12.7 g/dL (12.4-15.3); Immature Granulocyte Absolute 0.02 K/mm3 (0.00-0.00); Immature Granulocyte Percent A 0.3 % (0.0-0.0); Lymphocytes Absolute Auto 1.44 K/mm3 (1.10-4.50); Mean Corpuscular HGB Conc 32.6 g/dL (32.0-36.0); Mean Corpuscular Hemoglobin 35.3 pg (27.0-31.0); Mean Corpuscular Volume 108.3 fL (78.0-102.0); Mean Platelet Volume 10.6 fl (8.7-11.0); Monocytes Absolute Auto 0.61 K/mm3 (0.10-0.90); Monocytes Percent Auto 9.3 % (2.0-11.0); Neutrophils Absolute Auto 4.3 K/mm3 (1.7-7.2); Neutrophils Percent Auto 66.4 % (50.0-70.0); Nucleated Red Blood Cells Absolute Auto 0.02 K/mm3 (0.00-0.00); Nucleated Red Blood Cells Perc 0.3 % (0-0.0); Platelet Count Result 267 K/mm3 (150-420); Red Cell Distribution Width 15.5 % (11.6-14.4); White Blood Count 6.5 K/mm3 (4.8-10.8)
[2021-09-25 14:46] LABS: Add Urine Microscopic? YES; Appearance Urine Clear (Clear); Bilirubin Urine Negative (Negative); Blood Urine Negative (Negative); Color Urine Yellow (Yellow); Glucose Urine UA Negative (Negative); Ketones Urine Trace (Negative); Leukocyte Esterase Ur Negative LEU/UL (Negative); Nitrate Urine Negative (Negative); Protein Urine Negative (Negative); Specific Grav Ur >= 1.030 (1.010-1.020); Urobilinogen Urine 0.2 mg/dL (0.2-1.0)
[2021-09-25 14:51] LABS: RBC Urine 0-2 /hpf (0-2); Squamous Epithelial Cell Urine Occasional /hpf (Few); WBC Urine 0-3 /hpf (0-3)
[2021-09-25 14:52] LABS: Alanine Aminotransferase 34 U/L (16-63); Albumin Level 4.3 g/dL (3.4-5.0); Alkaline Phosphatase 68 U/L (46-116); Anion Gap 6 mmol/L (8-16); Aspartate Amino Transferase 20 U/L (15-37); Bacteria Urine None seen /hpf; Bilirubin,Total 0.8 mg/dL (0.00-1.00); Blood Urea Nitrogen 39 mg/dL (7-18); Calcium 9.1 mg/dL (8.5-10.1); Carbon Dioxide 32 mmol/L (21-32); Chloride 101 mmol/L (98-108); Estimated Glomerular Filt Rate 55; Glucose 87 mg/dL (70-99); Magnesium 2.4 mg/dL (1.8-2.4); Mucus Urine Moderate /lpf; Osmolality Calculated 296 mOsm/kg (285-295); Potassium 4.8 mmol/L (3.5-5.1); Sodium 139 mmol/L (136-145); Total Protein 7.4 g/dL (6.4-8.2)
[2021-09-25 14:53] LABS: CRP < 0.2 mg/dL (0.0-0.9)
[2021-09-25 16:06] LABS: SARS-CoV-2 RNA PCR Negative (Negative)
== END 2021-09-25 13:49 | disposition home or self-care (01) ==
LOC: CHSLAB 13:50
PROVIDERS: PCP Internal Medicine; Visit Provider Internal Medicine
DX: R68.83 Chills (without fever) (principal); R63.0 Anorexia; R05.9 Cough, unspecified; Z20.822 Contact with and (suspected) exposure to COVID-19
CPT/HCPCS: 36415; 71046; 80053; 81001; 83735; 85025; 86140; C9803; U0003; U0005

== ENCOUNTER 2021-10-09 09:22 | Outpatient (CLI) | payer MEDICARE, SELFPAY ==
[2021-10-09 09:38] LABS: Basophils Absolute Auto 0.04 K/mm3 (0.00-0.10); Basophils Percent Auto 0.7 % (0.0-1.0); Eosinophils Percent Auto 1.6 % (1.0-6.0); Hematocrit 34.3 % (37.0-46.0); Hemoglobin 11.5 g/dL (12.4-15.3); Immature Granulocyte Absolute 0.05 K/mm3 (0.00-0.00); Immature Granulocyte Percent A 0.8 % (0.0-0.0); Lymphocytes Absolute Auto 1.19 K/mm3 (1.10-4.50); Lymphocytes Percent Auto 19.6 % (18.0-42.0); Mean Corpuscular HGB Conc 33.5 g/dL (32.0-36.0); Mean Corpuscular Hemoglobin 36.2 pg (27.0-31.0); Mean Corpuscular Volume 107.9 fL (78.0-102.0); Monocytes Percent Auto 8.2 % (2.0-11.0); Neutrophils Absolute Auto 4.2 K/mm3 (1.7-7.2); Neutrophils Percent Auto 69.1 % (50.0-70.0); Platelet Count Result 258 K/mm3 (150-420); Red Blood Count 3.18 M/mm3 (4.70-6.10); Red Cell Distribution Width 15.5 % (11.6-14.4); White Blood Count 6.1 K/mm3 (4.8-10.8)
[2021-10-09] MEDS: SODIUM CHLORIDE 0.9% IV 1,000 ML 250 ML IVPB (09:45)
[2021-10-09 10:04] VITALS: BP 99/48; PULSE 72; RESP 14; TEMP 36.3; O2SAT 97; BMI 26.3
[2021-10-09 10:28] LABS: Alanine Aminotransferase 30 U/L (16-63); Albumin Level 3.8 g/dL (3.4-5.0); Alkaline Phosphatase 56 U/L (46-116); Anion Gap 10 mmol/L (8-16); Aspartate Amino Transferase 24 U/L (15-37); Bilirubin,Total 0.6 mg/dL (0.00-1.00); Blood Urea Nitrogen 43 mg/dL (7-18); Carbon Dioxide 30 mmol/L (21-32); Chloride 99 mmol/L (98-108); Creatine Kinase 24 U/L (39-308); Estimated CRCL calculation 29 ml/min; Estimated Glomerular Filt Rate 44; Glucose 126 mg/dL (70-99); NT Pro B Type Natriuretic Pept 111 pg/mL (0-450); Osmolality Calculated 300 mOsm/kg (285-295); Potassium 4.7 mmol/L (3.5-5.1); Sodium 139 mmol/L (136-145); Total Protein 7.3 g/dL (6.4-8.2); Troponin I 6.7 ng/L (0.00-60.4)
[2021-10-09 13:45] VITALS: BP 110/59; PULSE 80; RESP 14; O2SAT 98
--- NOTE | 2021-10-09 14:30 | PC.NURSE ---
Patient sent over from Dr. Simmons's office for 1 L NS over 4 hours r/t hypotension. Initial B/P 80/44. Only complaint was weakness and sometimes dizzy. 1 L IV NS administered over 4 hours. B/P 110/59 after infusion. C/O some weakness, but no dizziness reported. Safe exit of [facility] pick him up.
== END 2021-10-09 09:23 | disposition home or self-care (01) ==
PROVIDERS: PCP Internal Medicine; Visit Provider Internal Medicine
DX: E86.0 Dehydration (principal); I95.9 Hypotension, unspecified; R06.00 Dyspnea, unspecified
CPT/HCPCS: 36415; 80053; 82550; 82553; 83880; 84484; 85025; 87040; 96360; 96361; J7030

== ENCOUNTER 2021-10-18 12:19 | Outpatient (CLI) | payer MEDICARE, SELFPAY ==
[2021-10-18 12:33] LABS: Basophils Absolute Auto 0.05 K/mm3 (0.00-0.10); Basophils Percent Auto 0.8 % (0.0-1.0); Eosinophils Absolute Auto 0.11 K/mm3 (0.02-0.50); Eosinophils Percent Auto 1.8 % (1.0-6.0); Hematocrit 33.4 % (37.0-46.0); Hemoglobin 11.1 g/dL (12.4-15.3); Immature Granulocyte Absolute 0.03 K/mm3 (0.00-0.00); Immature Granulocyte Percent A 0.5 % (0.0-0.0); Lymphocytes Absolute Auto 1.47 K/mm3 (1.10-4.50); Lymphocytes Percent Auto 23.8 % (18.0-42.0); Mean Corpuscular HGB Conc 33.2 g/dL (32.0-36.0); Mean Corpuscular Hemoglobin 36.2 pg (27.0-31.0); Mean Corpuscular Volume 108.8 fL (78.0-102.0); Mean Platelet Volume 9.7 fl (8.7-11.0); Monocytes Absolute Auto 0.47 K/mm3 (0.10-0.90); Monocytes Percent Auto 7.6 % (2.0-11.0); Neutrophils Percent Auto 65.5 % (50.0-70.0); Nucleated Red Blood Cells Absolute Auto 0.02 K/mm3 (0.00-0.00); Nucleated Red Blood Cells Perc 0.3 % (0-0.0); Platelet Count Result 217 K/mm3 (150-420); Red Blood Count 3.07 M/mm3 (4.70-6.10); Red Cell Distribution Width 15.9 % (11.6-14.4); White Blood Count 6.2 K/mm3 (4.8-10.8)
[2021-10-18 13:42] LABS: Alanine Aminotransferase 29 U/L (16-63); Albumin Level 3.8 g/dL (3.4-5.0); Alkaline Phosphatase 57 U/L (46-116); Anion Gap 9 mmol/L (8-16); Aspartate Amino Transferase 15 U/L (15-37); Bilirubin,Total 0.5 mg/dL (0.00-1.00); Blood Urea Nitrogen 34 mg/dL (7-18); Calcium 8.7 mg/dL (8.5-10.1); Carbon Dioxide 29 mmol/L (21-32); Chloride 105 mmol/L (98-108); Estimated Glomerular Filt Rate 57; Glucose 106 mg/dL (70-99); Osmolality Calculated 303 mOsm/kg (285-295); Potassium 4.5 mmol/L (3.5-5.1); Sodium 143 mmol/L (136-145); Total Protein 6.6 g/dL (6.4-8.2)
== END 2021-10-18 12:20 | disposition home or self-care (01) ==
LOC: CHSLAB 12:21
PROVIDERS: PCP Internal Medicine; Visit Provider Internal Medicine
DX: E86.0 Dehydration (principal); R79.89 Other specified abnormal findings of blood chemistry
CPT/HCPCS: 36415; 80053; 85025

== ENCOUNTER 2021-10-28 14:02 | Observation (INO) | payer MEDICARE, SELFPAY ==
--- NOTE | ~2021-10-28 | CT_ITS ---
EXAMINATION: CT brain wo con INDICATION: Headache COMPARISON: None TECHNIQUE: Standard unenhanced head CT. The dose-length product (DLP) was 681.00 mGy-cm. The mA was a djusted according to patient size. Iterative reconstruction technique was employed. FINDINGS: There is no acute intraparenchymal hemorrhage. No evidence of mass lesion. No evidence of a cute infarction. There is mild periventricular and subcortical hypodensity probably related to small vessel ischemic disease. There is mild prominence of the sulci and ventricles related to cerebral atr ophy. Intracranial calcified cerebral atherosclerosis is noted. There are no extra-axial collections. There is no mass effect or midline shift. Changes in the globes are likely from ocular lens surgery. There is left frontal scalp soft tissue swelling. There is mild mucosal thickening of the paranasal sinuses. IMPRESSION: 1. No acute intracranial abnormality. 2. Age related findings. Reviewed, dictated and finalized at location F. THROWER
--- NOTE | 2021-10-28 14:06 | ED.FALL ---
HPI - Fall General Chief Complaint: Weakness Stated Complaint: ambulance Time Seen by Provider: 10/28/21 14:09 Source: patient and RN notes reviewed Mode of arrival: EMS Limitations: no limitations History of Present Illness HPI Narrative: Patient reports he has been feeling weak dizzy. He said he had a fall where he hit the left side of his head about 1 week ago. Since then he has been having more blurred vision he has had other falls since then. He is having difficulty with ambulation. He denies any recent illness. He denies any one-sided body weakness. complaint: fall Onset (ago): week(s) (1) Fall from: standing Fall witnessed: no Place fall occurred: home Loss of consciousness: unsure Symptoms prior to fall: none Context: tripped/slipped Location of injury: head Severity: mild Associated symptoms (after fall): weakness and vertigo Related Data Home Medications Medication Instructions Recorded Confirmed Centrum Silver Men 1 tablet PO DAILY 09/13/19 05/28/21 Allergies Allergy/AdvReac Type Severity Reaction Status Date / Time Penicillins Allergy Intermediate Unknown Verified 10/28/21 16:34 Review of Systems Review of Systems: All systems reviewed & are unremarkable except as noted in HPI and below Constitutional: Constitutional: Denies chills and Denies fever(s) Neurologic: Reports frequent falls and Reports Other visual disturbances (blured) [facility] Past Medical History Medical History (Updated 10/28/21 @ 16:53 by James Bowles MD) Arthritis Benign essential HTN Community acquired pneumonia (~09/13/19) Diabetes mellitus Hypertension Lumbar spondylosis Type 2 diabetes mellitus without complications Vitamin B 12 deficiency Vitamin D deficiency, unspecified Surgical History Surgical History History of back surgery History of knee replacement Hx of cholecystectomy Hx of tonsillectomy S/P cataract surgery Family History Family History Mother Family history of coronary artery disease Father , father of metastatic lung cancer Family history of coronary artery disease Other Family history of malignant neoplasm Social History Social History Smoking status: Never smoker Alcohol intake: never Substance use: never Gender identity (if verbalized by the patient): Male Spiritual care concerns: No Agree to blood products: Yes Exam Const: General: healthy appearing, no acute distress and alert Nutritional Appearance: well nourished and thin Orientation/consciousness: patient oriented x3 HENMT: Head: scalp tenderness (left anterior occipital) Head images: 1. Area of tenderness Ears: external ears normal and TM's normal bilaterally Face and sinus: normal facial exam Eyes: Pupils: Pinpoint pupils on the right and Other pupil findings (evidence of cataract surgery) EOM: EOMs intact bilaterally Neck: Neck: normal visual inspection Resp: Effort & Inspection: normal respiratory effort Auscultation: clear to auscultation bilaterally Cardio: Rate: regular rate Rhythm: regular rhythm GI: GI Palp: Yes Soft to palpation and No Tenderness to palpation present (GI) Auscultation: normal bowel sounds Back/Spine/Pelvis: Cervical Spine: cervical ROM normal Thoracic/Lumbar Spine: thoraco-lumbar ROM normal Skin: General skin exam: normal color Rashes: no rashes Neuro: General: patient oriented x3, moves all extremities, no meningeal signs, no focal motor deficits and CN's II-XI intact bilaterally Speech: normal speech Extrem: General: normal to inspection and no clubbing, cyanosis or edema Psych: Appearance: grossly normal and well kempt Mental Status: mental status grossly normal Affect: normal affect Attitude: cooperative Thought content: Yes Normal thought content present Cours
[2021-10-28 14:14] VITALS: BP 154/70; PULSE 68; RESP 16; TEMP 36.2; O2SAT 99
[2021-10-28 14:45] LABS: Basophils Absolute Auto 0.03 K/mm3 (0.00-0.10); Basophils Percent Auto 0.7 % (0.0-1.0); Eosinophils Absolute Auto 0.05 K/mm3 (0.02-0.50); Eosinophils Percent Auto 1.1 % (1.0-6.0); Hematocrit 32.9 % (37.0-46.0); Hemoglobin 10.9 g/dL (12.4-15.3); Immature Granulocyte Absolute 0.06 K/mm3 (0.00-0.00); Immature Granulocyte Percent A 1.3 % (0.0-0.0); Lymphocytes Absolute Auto 0.99 K/mm3 (1.10-4.50); Lymphocytes Percent Auto 21.8 % (18.0-42.0); Mean Corpuscular HGB Conc 33.1 g/dL (32.0-36.0); Mean Corpuscular Hemoglobin 35.5 pg (27.0-31.0); Mean Corpuscular Volume 107.2 fL (78.0-102.0); Mean Platelet Volume 9.7 fl (8.7-11.0); Monocytes Absolute Auto 0.41 K/mm3 (0.10-0.90); Neutrophils Percent Auto 66.1 % (50.0-70.0); Platelet Count Result 190 K/mm3 (150-420); Red Blood Count 3.07 M/mm3 (4.70-6.10); White Blood Count 4.5 K/mm3 (4.8-10.8)
[2021-10-28 14:49] LABS: Appearance Urine Clear (Clear); Bilirubin Urine Negative (Negative); Color Urine Yellow (Yellow); Glucose Urine UA Negative (Negative); Ketones Urine Trace (Negative); Leukocyte Esterase Ur Negative LEU/UL (Negative); Nitrate Urine Negative (Negative); Protein Urine Negative (Negative); pH Urine 6.5 (5.0-8.0)
[2021-10-28 14:55] LABS: Add Urine Microscopic? YES; Bacteria Urine Trace /hpf; Blood Urine Trace-Intact (Negative); Squamous Epithelial Cell Urine None seen /hpf (Few); WBC Urine 0-3 /hpf (0-3)
[2021-10-28 15:01] LABS: Alanine Aminotransferase 27 U/L (16-63); Albumin Level 3.3 g/dL (3.4-5.0); Alkaline Phosphatase 56 U/L (46-116); Anion Gap 7 mmol/L (8-16); Aspartate Amino Transferase 15 U/L (15-37); Bilirubin,Total 0.6 mg/dL (0.00-1.00); Blood Urea Nitrogen 26 mg/dL (7-18); Calcium 8.5 mg/dL (8.5-10.1); Carbon Dioxide 29 mmol/L (21-32); Chloride 105 mmol/L (98-108); Estimated CRCL calculation 36 ml/min; Estimated Glomerular Filt Rate 60; Glucose 106 mg/dL (70-99); Magnesium 2.3 mg/dL (1.8-2.4); Osmolality Calculated 296 mOsm/kg (285-295); Potassium 4.5 mmol/L (3.5-5.1); Sodium 141 mmol/L (136-145); Total Protein 6.3 g/dL (6.4-8.2)
[2021-10-28 15:03] LABS: SARS-CoV-2 Ag Negative (Negative)
--- NOTE | 2021-10-28 15:27 | PC.NURSE ---
brought back to room.
--- NOTE | 2021-10-28 16:46 | PC.NURSE ---
Floor and registration notified of pt admission. Pt will be admitted as observation to room 207.
[2021-10-28 17:00] VITALS: BP 119/82; PULSE 74; RESP 16; O2SAT 96
--- NOTE | 2021-10-28 17:25 | ADMGEN ---
This patient, Neil Wharton, was admitted to 2nd Floor Room 207-1. Patient/family oriented to hospital policies and general routines including ID bracelet, bed and alarms, visiting hours, pain management, procedures, bathroom and other care routines, personal items, smoking policy, room service/diet, and visiting hours. Information on how to activate the Rapid Response Team has been discussed. Patient/Family are encouraged to report perceived risks to care and to ask questions if they do not understand what they are told or what they should do.
[2021-10-28 17:49] VITALS: BMI 27.5
[2021-10-28 17:55] VITALS: BMI 27.5
[2021-10-28 20:00] VITALS: BP 132/59
[2021-10-28 21:18] LABS: Glucose Point of Care 143 mg/dl (65-105)
[2021-10-28] MEDS: TAMSULOSIN HCL 0.4 MG CAPSULE PO (21:51)
[2021-10-28] MEDS: MELATONIN 5 MG TABLET PO (21:51)
[2021-10-28 23:04] VITALS: BP 110/65; PULSE 60; RESP 14; TEMP 36.9; O2SAT 94
--- NOTE | 2021-10-29 00:40 | PC.NURSE ---
Akil Osman DIRECTOR OF ENGINEERING returned call and is aware of elevated d-dimer with no new orders received.
[2021-10-29 05:46] LABS: Hematocrit 31.3 % (37.0-46.0); Hemoglobin 10.2 g/dL (12.4-15.3); Mean Corpuscular HGB Conc 32.6 g/dL (32.0-36.0); Mean Corpuscular Hemoglobin 34.7 pg (27.0-31.0); Mean Corpuscular Volume 106.5 fL (78.0-102.0); Mean Platelet Volume 10.9 fl (8.7-11.0); Platelet Count Result 204 K/mm3 (150-420); Red Blood Count 2.94 M/mm3 (4.70-6.10); Red Cell Distribution Width 15.9 % (11.6-14.4); White Blood Count 4.8 K/mm3 (4.8-10.8)
[2021-10-29 05:59] LABS: Anion Gap 7 mmol/L (8-16); Blood Urea Nitrogen 25 mg/dL (7-18); Calcium 8.3 mg/dL (8.5-10.1); Carbon Dioxide 29 mmol/L (21-32); Chloride 106 mmol/L (98-108); Estimated CRCL calculation 42 ml/min; Estimated Glomerular Filt Rate > 60; Glucose 99 mg/dL (70-99); Osmolality Calculated 298 mOsm/kg (285-295); Potassium 4.3 mmol/L (3.5-5.1); Sodium 142 mmol/L (136-145)
[2021-10-29] MEDS: traMADol HCL (*CRX) 25 MG TABLET PO (06:00)
[2021-10-29 07:48] LABS: Glucose Point of Care 95 mg/dl (65-105)
[2021-10-29 08:00] VITALS: BP 122/51; BP 122/57; PULSE 63; RESP 16; TEMP 36.7; O2SAT 98
[2021-10-29] MEDS: ENOXAPARIN 40 MG/0.4 ML SYRINGE SUB-Q (08:03)
[2021-10-29] MEDS: MEMANTINE 5 MG TABLET 10 MG PO (08:03)
[2021-10-29] MEDS: CALCIUM CARBONATE (TUMS) 500 MG (200 MG ELEMENTAL) PO (08:03)
[2021-10-29] MEDS: OPTI-GEN TAB 1 TABLET PO (08:04)
[2021-10-29] MEDS: PANTOPRAZOLE 40 MG TABLET PO (08:04)
[2021-10-29] MEDS: TAMSULOSIN HCL 0.4 MG CAPSULE PO (08:04)
--- NOTE | 2021-10-29 09:20 | PC.NURSE ---
Orthostatic BPs as follows, Laying 122/51, sitting 98/55, standing 88/52
[2021-10-29] MEDS: MECLIZINE HCL 12.5 MG TABLET PO (09:46)
--- NOTE | 2021-10-29 10:26 | PM.SD2 ---
Same Day Admit/Disch: HPI History of Present Illness Chief complaint: Weakness Narrative: Neil Wharton is a 86 year old male that presented to emergency department with complaints of dizziness. Patient has a past medical history of hypertension, diabetes, vitamin B12 and D deficiency and vertigo. Patient's vital signs 122/51, pulse 63, 16, 98.1, 98% on room air. WBCs 4.5, hemoglobin 10.9, hematocrit 32.9, platelets 190, sodium 141, potassium 4.5, BUN 26, creatinine 1.16, glucose 106, magnesium 2.3, liver function test within normal limits UA with a trace of ketone blood RBCs and bacteria, Covid negative CT of the head unremarkable, sinus rhythm 67. Spoke with patient's primary care physician Dr. Esqueda patient will be patient placed on meclizine and monitor to see if his dizziness improves. Patient still does experience dizziness. The patient denies SOB, CP, palpitation, extremity numbness, lightheadedness, constipation, diarrhea, chills, or fever. Patient educated on fall precaution. [facility] Past Medical History Medical History (Updated 10/28/21 @ 16:53 by James Bowles MD) Arthritis Benign essential HTN Community acquired pneumonia (~09/13/19) Diabetes mellitus Hypertension Lumbar spondylosis Type 2 diabetes mellitus without complications Vitamin B 12 deficiency Vitamin D deficiency, unspecified Surgical History Surgical History History of back surgery History of knee replacement Hx of cholecystectomy Hx of tonsillectomy S/P cataract surgery Family History Family History Mother Family history of coronary artery disease Father , father of metastatic lung cancer Family history of coronary artery disease Other Family history of malignant neoplasm Social History Social History Smoking status: Unknown if ever smoked Alcohol intake: former Substance use: unknown Substance use type: does not use Gender identity (if verbalized by the patient): Male Spiritual care concerns: No Agree to blood products: Yes Same Day Admit/Disch: Med Pre-admit Medications Home Medications Medication Instructions Recorded Confirmed Type Centrum Silver Men 1 tablet PO DAILY 09/13/19 10/28/21 History calcium carbonate 500 mg calcium 500 mg PO BID #30 tablet 10/20/19 10/28/21 Rx (1,250 mg) chewable tablet blood sugar diagnostic #100 each 12/08/19 05/28/21 Rx memantine 10 mg tablet 10 mg PO DAILY #90 tablet 04/06/20 10/28/21 Rx donepezil 10 mg tablet 10 mg PO DAILY #90 tablet 04/20/20 10/28/21 Rx pantoprazole 40 mg tablet,delayed 40 mg PO DAILY #90 tablet 04/20/20 10/28/21 Rx release tamsulosin 0.4 mg capsule 0.4 mg PO .twice daily #180 cap 09/14/20 10/28/21 Rx acetaminophen [Acetaminophen Extra 500 mg PO QID PRN 10/28/21 10/28/21 History Strength] duloxetine 20 mg PO BID 10/28/21 10/28/21 History magnesium oxide 400 mg PO HS 10/28/21 10/28/21 History pyridoxine (vitamin B6) [Vitamin 100 mg PO DAILY 10/28/21 10/28/21 History B-6] meclizine 12.5 mg PO TID PRN #30 tablet 10/29/21 Rx Exam Narrative: GENERAL: This is a well-nourished, well-developed patient, in no apparent distress. HEAD: normocephalic, atraumatic. EYES: PERRL. Sclera clear/white. Vision is grossly intact. EARS: External ears normal, auditory canals clear and without drainage, TMs normal without perforation. Hearing grossly intact. NOSE: External nose normal with no obvious nasal discharge, nares without redness, no rhinorrhea. THROAT: Mucous membranes moist, posterior pharynx clear. NECK: Neck supple, non-tender without lymphadenopathy, masses or thyromegaly. CARDIOVASCULAR: Regular rate and rhythm without murmurs, gallops, or rubs. RESPIRATORY: Clear to auscultation. Breath sounds equal bilaterally. No wheezes, rales, or rhonchi. GASTROINTESTINAL: Abdo
[2021-10-29 11:47] LABS: Glucose Point of Care 119 mg/dl (65-105)
--- NOTE | 2021-10-29 12:17 | PC.NURSE ---
Patient discharged to home with home health. Discharge instructions reviewed with patient. Patient voiced understanding. Patiient transported off [facility] via w/c with nurse assist and left facility via private vehicle. Prescriptions electronically transmitted to pharmacy. Personal belongings sent home with patient.
--- NOTE | 2021-10-31 09:11 | PC.NURSE ---
Discharge call back complete, states feeling better, new medication helping, did have instructions reviewed with him, states didn't have any questions, did understand all instructions, no concerns regarding care.
== END 2021-10-29 12:20 | disposition home or self-care (01) ==
LOC: CHSED 14:10 → CHS2ND 16:51
PROVIDERS: Nurse Practitioner; Admitting Provider Internal Medicine; Emergency Provider Emergency Medicine; PCP Internal Medicine; Visit Provider Internal Medicine
DX: R42 Dizziness and giddiness (principal); R53.1 Weakness; H53.8 Other visual disturbances; R29.6 Repeated falls; I10 Essential (primary) hypertension; E11.9 Type 2 diabetes mellitus without complications; E53.8 Deficiency of other specified B group vitamins; E55.9 Vitamin D deficiency, unspecified; M47.816 Spondylosis without myelopathy or radiculopathy, lumbar region; Z96.659 Presence of unspecified artificial knee joint; Z20.822 Contact with and (suspected) exposure to COVID-19
CPT/HCPCS: 36415; 70450; 80048; 80053; 81001; 82948; 83735; 85025; 85027; 87426; 96372; 97161; 97165; 99285; A9270; C9803; G0378; J1650

== ENCOUNTER 2021-11-03 10:03 | Outpatient (CLI) | payer MEDICARE, SELFPAY ==
--- NOTE | ~2021-11-03 | MR_ITS ---
EXAMINATION: MR brain/brain stem wo con DATE: 11/03/2021 11:48 INDICATION: Dizziness and giddiness. TECHNIQUE: Magnetic resonance imaging (MRI) of the brain and brainstem was performed without intraven ous contrast. Sequences included sagittal and axial T1-weighted FSE, axial diffusion-weighted FS EPI, axial T2*-weighted GRE, axial T2-weighted FLAIR Propeller, and axial T2-weighted Propeller. Apparent diffusion coefficient (ADC) maps were created. 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 There are scattered areas of nonspecific increased T2-weighted signal intensity in the cerebral white matter and yaneli, which is wi thin normal limits for the patient's age. There is no intracranial hemorrhage, acute infarction, or a bnormal intracranial mass lesion. The ventricles are normal in size. There are likely changes of ocul ar lens replacement surgeries. There is mild mucosal thickening in the paranasal sinuses. The mastoid air cells are normal. IMPRESSION: 1. 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 Reviewed, dictated and finalized at location A. 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
== END 2021-11-03 10:04 | disposition home or self-care (01) ==
LOC: CHSIMG 10:04
PROVIDERS: PCP Internal Medicine; Visit Provider Nurse Practitioner
DX: R42 Dizziness and giddiness (principal); H53.8 Other visual disturbances; W19.XXXA Unspecified fall, initial encounter
CPT/HCPCS: 70551

== ENCOUNTER 2022-02-07 11:36 | Emergency (ER) | payer MEDICARE, SELFPAY ==
--- NOTE | ~2022-02-07 | CT_ITS ---
EXAMINATION: CT lumbar spine wo con DATE: 02/07/2022 12:50 INDICATION: Chronic low back pain TECHNIQUE: Computed tomography (CT) of the lumbar spine was performed without intravenous contrast. Blas guallpa dose-length product was 1053.64 mGy-cm. Automated exposure control and iterative reconstruction te diomedes were employed. COMPARISON: CT dated 05/17/2019 FINDINGS: There is severe multilevel degenerative disc disease as well as facet hypertrophy. There is scoliosis unchanged. No acute fracture, subluxation or dislocation. There is a vacuum phenomena at m ultiple levels. No sacral insufficiency fracture is identified. There are L4 and L5 laminectomy medrano es. Nonobstructing right nephrolithiasis. Large right renal cyst. IMPRESSION: 1. No acute abnormality of the cervical spine. 2: No significant change to severe lumbar spondylosis. 3: Nonobstructing right nephrolithiasis. Reviewed, dictated and finalized at location B.
--- NOTE | ~2022-02-07 | CT_ITS ---
EXAMINATION: CT cervical spine wo con DATE: 02/07/2022 12:50 INDICATION: Acute neck pain. TECHNIQUE: Computed tomography (CT) of the cervical spine was performed without intravenous contrast. The dose-length product was 349 mGy-cm. Automated exposure control and iterative reconstruction tech [employer] were employed. COMPARISON: No prior studies for comparison. FINDINGS: There is disc narrowing at all cervical spine levels, most advanced at C6-7. There is degen erative anterolisthesis at C4-5 and retrolisthesis at C6-7. There is degenerative anterolisthesis at C7-T1. Odontoid process is normal. There is multilevel uncinate and facet hypertrophy involving all c ervical levels. There is levocurvature of the cervical spine. There is atherosclerosis of the carotid arteries. Lung apices are normal. IMPRESSION: 1. No acute abnormality of the cervical spine. 2: Severe cervical spondylosis. Reviewed, dictated and finalized at location B.
[2022-02-07 11:45] VITALS: BP 164/75; PULSE 58; RESP 16; TEMP 36.3; O2SAT 98
--- NOTE | 2022-02-07 11:54 | ED.NECK ---
HPI - Neck Pain/Injury General Chief Complaint: Neck Pain/Injury Stated Complaint: STIFF NECK, MUSCLE SPASMS, CANT WALK Time Seen by Provider: 02/07/22 11:54 Source: patient Mode of arrival: ambulatory History of Present Illness HPI Narrative: 86-year-old male with a history of dementia, hypertension, diabetes mellitus, falls, dizziness, lumbar spondylosis status post back surgery, arthritis status post bilateral knee replacement presents to the ER with a 3 day history of -- low back pain. The patient has chronic back pain and received 4 epidural shots last year. -- Neck pain. no history of trauma. No radiation of the pain to the upper extremities. -- Spasm of the muscles of his extremities most affecting his bilateral calves. no fever. No chest pain or shortness of breath no nausea/vomiting /abdominal pain or diarrhea. MD complaint: neck pain Onset (ago): day(s) ( Often on for the past 3 days) Severity: moderate Quality: aching Duration: constant Relieving factors: none Exacerbating factors: movement of extremity Associated symptoms: weakness Treatments prior to arrival: none Related Data Home Medications Medication Instructions Recorded Confirmed udysmmbb-[id number] acid 300 1 tablet PO DAILY 09/13/19 02/07/22 mcg-lycopene 600 mcg-lutein 300 mcg tablet (Centrum Silver Men) acetaminophen 500 mg tablet 500 mg PO QID PRN Fever Or Pain 10/28/21 02/07/22 (Acetaminophen Extra Strength) duloxetine 20 mg capsule,delayed 20 mg PO BID 10/28/21 02/07/22 release magnesium oxide 400 mg PO HS 10/28/21 02/07/22 pyridoxine (vitamin B6) 100 mg 100 mg PO DAILY 10/28/21 02/07/22 tablet (Vitamin B-6) Allergies Allergy/AdvReac Type Severity Reaction Status Date / Time Penicillins Allergy Intermediate Unknown Verified 02/07/22 12:07 Review of Systems Review of Systems: All systems reviewed & are unremarkable except as noted in HPI and below Constitutional: Constitutional: Reports as per HPI and Reports no additional constitutional complaints Eyes: Eyes: Reports as per HPI and Reports no additional eye complaints ENT: Reports system reviewed and no additional complaints, except as documented and Reports as per HPI Cardiovascular: Cardiovascular: Reports as per HPI and Reports no additional cardiovascular complaints Respiratory: Respiratory: Reports as per HPI and Reports no additional respiratory complaints Gastrointestinal: Gastrointestinal: Reports as per HPI and Reports no additional gastrointestinal complaints Genitourinary: Genitourinary: Reports no additional male genitourinary complaints and Reports as per HPI Musculoskeletal: Musculoskeletal: Reports no additional musculoskeletal complaints, Reports as per HPI, Reports back pain, Reports arthralgias and Reports muscle cramps Comments: diffuse joint pains. Neck pain and low back pain Integumentary/Breasts: Skin/Breast: Reports system reviewed and no additional complaints, except as docu and Reports as per HPI Neurologic: Reports system reviewed and no additional complaints, except as documented, Reports as per HPI and Reports dizziness Psychiatric: Psychiatric: Reports no additional psychiatric complaints and Reports as per HPI Endocrine: Endocrine: Reports no additional endocrine complaints and Reports as per HPI Hematologic/Lymphatic: Hematologic/Lymphatic: Reports no additional hematologic/lymphatic complaints and Reports as per HPI Allergic/Immunologic: Allergic/Immunologic: Reports no additional allergic/immunologic complaints and Reports as per HPI PMFSH Past Medical History Medical History Arthritis Benign essential HTN Community acquired pneumonia (~09/13/19) Diabetes mellitus Hypertension Lumbar spondylosis Type 2 diabetes mellitus without complications Vitamin B 12 deficiency Vitamin D deficiency, unspecified Surgical History Surgical History (Reviewed 02/07/22 @ 12:13
[2022-02-07 12:30] VITALS: BP 149/65; PULSE 62; RESP 16; TEMP 36.9; O2SAT 99
[2022-02-07 12:32] LABS: Basophils Absolute Auto 0.04 K/mm3 (0.00-0.10); Basophils Percent Auto 0.9 % (0.0-1.0); Eosinophils Absolute Auto 0.15 K/mm3 (0.02-0.50); Eosinophils Percent Auto 3.3 % (1.0-6.0); Hematocrit 29.6 % (37.0-46.0); Hemoglobin 9.7 g/dL (12.4-15.3); Immature Granulocyte Absolute 0.03 K/mm3 (0.00-0.00); Immature Granulocyte Percent A 0.7 % (0.0-0.0); Lymphocytes Absolute Auto 1.38 K/mm3 (1.10-4.50); Lymphocytes Percent Auto 30.5 % (18.0-42.0); Mean Corpuscular HGB Conc 32.8 g/dL (32.0-36.0); Mean Corpuscular Hemoglobin 35.7 pg (27.0-31.0); Mean Corpuscular Volume 108.8 fL (78.0-102.0); Mean Platelet Volume 10.7 fl (8.7-11.0); Monocytes Absolute Auto 0.48 K/mm3 (0.10-0.90); Monocytes Percent Auto 10.6 % (2.0-11.0); Neutrophils Absolute Auto 2.4 K/mm3 (1.7-7.2); Platelet Count Result 198 K/mm3 (150-420); Red Blood Count 2.72 M/mm3 (4.70-6.10); Red Cell Distribution Width 16.7 % (11.6-14.4); White Blood Count 4.5 K/mm3 (4.8-10.8)
[2022-02-07 12:33] LABS: Add Urine Microscopic? NO; Appearance Urine Clear (Clear); Bilirubin Urine Negative (Negative); Blood Urine Negative (Negative); Color Urine Light Yellow (Yellow); Glucose Urine UA Negative (Negative); Ketones Urine Negative (Negative); Leukocyte Esterase Ur Negative (Negative); Nitrate Urine Negative (Negative); Protein Urine Negative (Negative); Specific Grav Ur 1.025 (1.010-1.020); Urobilinogen Urine 0.2 mg/dL (0.2-1.0)
[2022-02-07 12:45] LABS: Prothrombin Time 10.5 Seconds (9.50-12.10)
[2022-02-07 12:59] LABS: Alanine Aminotransferase 21 U/L (16-63); Albumin Level 3.6 g/dL (3.4-5.0); Alkaline Phosphatase 44 U/L (46-116); Anion Gap 7 mmol/L (8-16); Aspartate Amino Transferase 13 U/L (15-37); Bilirubin,Total 0.7 mg/dL (0.00-1.00); Blood Urea Nitrogen 31 mg/dL (7-18); Calcium 8.3 mg/dL (8.5-10.1); Carbon Dioxide 29 mmol/L (21-32); Chloride 108 mmol/L (98-108); Estimated CRCL calculation 45 ml/min; Estimated Glomerular Filt Rate > 60; Glucose 103 mg/dL (70-99); Lipase 38 U/L (73-393); NT Pro B Type Natriuretic Pept 720 pg/mL (0-450); Osmolality Calculated 304 mOsm/kg (285-295); Potassium 4.2 mmol/L (3.5-5.1); Sodium 144 mmol/L (136-145); Thyroid Stimulating Hormone 1.02 uIU/mL (0.36-3.74); Total Protein 6.3 g/dL (6.4-8.2); Troponin I 12.6 ng/L (0.00-60.4)
[2022-02-07 13:53] VITALS: BP 164/75; PULSE 62; O2SAT 98
[2022-02-07 14:33] LABS: Vitamin B12 1188 pg/mL (193-986)
[2022-02-08 14:51] LABS: Folic Acid 16.3 ng/mL (8.6->20)
== END 2022-02-07 13:58 | disposition home or self-care (01) ==
PROVIDERS: Emergency Provider Internal Medicine Critical Care Medicine; PCP Internal Medicine
DX: D70.9 Neutropenia, unspecified (principal); D53.9 Nutritional anemia, unspecified; M47.896 Other spondylosis, lumbar region; M54.2 Cervicalgia; E86.0 Dehydration; N28.1 Cyst of kidney, acquired; I10 Essential (primary) hypertension; E11.9 Type 2 diabetes mellitus without complications; E53.8 Deficiency of other specified B group vitamins; E55.9 Vitamin D deficiency, unspecified
CPT/HCPCS: 36415; 72125; 72131; 80053; 81003; 82607; 82746; 83605; 83690; 83880; 84443; 84484; 85025; 85610; 99284

== ENCOUNTER 2022-02-27 12:43 | Emergency (ER) | payer MEDICARE, SELFPAY ==
--- NOTE | ~2022-02-27 | XR_ITS ---
EXAMINATION: XR chest 2V DATE: 02/27/2022 13:24 INDICATION: Congestion and shortness of breath TECHNIQUE: PA and lateral views of the chest are obtained. COMPARISON: 09/25/2021 FINDINGS: The lungs are free of acute opacities. No pleural effusion or pneumothorax. The cardiomedia stinal silhouette is normal. There is moderate thoracic spondylosis. There are surgical clips in the right upper quadrant. Calcified loose bodies are noted in the left shoulder joint. IMPRESSION: 1. No acute cardiopulmonary abnormality. Reviewed, dictated and finalized at location A.
[2022-02-27 12:45] VITALS: BP 127/73; PULSE 70; RESP 20; TEMP 36.4; O2SAT 94
[2022-02-27 13:35] LABS: Hematocrit 31.7 % (37.0-46.0); Hemoglobin 10.3 g/dL (12.4-15.3); Mean Corpuscular HGB Conc 32.5 g/dL (32.0-36.0); Mean Corpuscular Hemoglobin 35.4 pg (27.0-31.0); Mean Corpuscular Volume 108.9 fL (78.0-102.0); Mean Platelet Volume 10.7 fl (8.7-11.0); Platelet Count Result 169 K/mm3 (150-420); Red Blood Count 2.91 M/mm3 (4.70-6.10); White Blood Count 3.4 K/mm3 (4.8-10.8)
[2022-02-27 13:57] LABS: Band Neutrophils Percent 18 % (0-6); Eosinophils Absolute Manual 0.03 K/mm3 (0.02-0.5); Eosinophils Percent Manual 1 % (1-6); Lymphocytes Absolute Manual 0.85 K/mm3 (1.1-4.5); Lymphocytes Percent Manual 25 % (18-44); Metamyelocytes Percent 2 %; Monocytes Absolute Manual 0.51 K/mm3 (0.1-0.90); Monocytes Percent Manual 15 % (3-9); Myelocytes Percent 1 %; Neutrophils Percent Manual 38 % (46-73); Platelet Estimate Adequate (Adequate); Total Cells Counted 100
[2022-02-27 14:10] LABS: SARS-CoV-2 RNA PCR Positive (Negative)
[2022-02-27 14:18] LABS: Influenza A QL RT-PCR Negative (Negative); Influenza B QL RT-PCR Negative (Negative)
[2022-02-27 14:36] LABS: Troponin I 13.7 ng/L (0.00-60.4)
--- NOTE | 2022-02-27 14:59 | ED.URI ---
HPI - URI/Sore Throat General Chief Complaint: Upper Respiratory Infection Stated Complaint: cough,sore throat, congestion Time Seen by Provider: 02/27/22 12:54 Source: patient Mode of arrival: ambulatory Limitations: no limitations History of Present Illness HPI Narrative: patient states that over the past 5 days has not been feeling well major congestion in his sinuses head throat in the lungs MD elicited complaint: cough, rhinorrhea and nasal congestion Onset (ago): day(s) ( 5 days ago) Consistency: constant Severity: moderate Description of mucous: watery Able to tolerate fluids by mouth: Yes Exacerbating factors: exertion, deep breaths and supine positioning Relieving factors: nothing Context: other ( patient had no sick contacts from no travel is unaware of how started) Associated symptoms: rhinorrhea, nasal congestion, cough, chest pain and shortness of breath Treatments prior to arrival: none Related Data Home Medications Medication Instructions Recorded Confirmed hbrxoebx-gjp-jivdf acid 300 1 tablet PO DAILY 09/13/19 02/27/22 mcg-lycopene 600 mcg-lutein 300 mcg tablet (Centrum Silver Men) acetaminophen 500 mg tablet 500 mg PO QID PRN Fever Or Pain 10/28/21 02/27/22 (Acetaminophen Extra Strength) duloxetine 20 mg capsule,delayed 20 mg PO BID 10/28/21 02/27/22 release magnesium oxide 400 mg PO HS 10/28/21 02/27/22 pyridoxine (vitamin B6) 100 mg 100 mg PO DAILY 10/28/21 02/27/22 tablet (Vitamin B-6) Allergies Allergy/AdvReac Type Severity Reaction Status Date / Time Penicillins Allergy Intermediate Unknown Verified 02/07/22 12:07 Review of Systems Review of Systems: All systems reviewed & are unremarkable except as noted in HPI and below PMFSH Past Medical History Medical History Arthritis Benign essential HTN Community acquired pneumonia (~09/13/19) Diabetes mellitus Hypertension Lumbar spondylosis Type 2 diabetes mellitus without complications Vitamin B 12 deficiency Vitamin D deficiency, unspecified Surgical History Surgical History History of back surgery History of knee replacement Hx of cholecystectomy Hx of tonsillectomy S/P cataract surgery Family History Family History Mother Family history of coronary artery disease Father , father of metastatic lung cancer Family history of coronary artery disease Other Family history of malignant neoplasm Social History Social History Smoking status: Unknown if ever smoked Alcohol intake: former Substance use: unknown Substance use type: does not use Gender identity (if verbalized by the patient): Male Spiritual care concerns: No Agree to blood products: Yes Exam Const: General: ill appearing Nutritional Appearance: well nourished Orientation/consciousness: patient oriented x3 Limitations: no limitations HENMT: Head: normal to inspection Ears: external ears normal and TM's normal bilaterally General nose exam: Normal external nose present and Nasal discharge present Face and sinus: normal facial exam and sinus tenderness Mouth: Yes Normal oral and palatal mucosa present Teeth and gingiva: dentition normal Throat: posterior oropharynx normal Eyes: Conjunctivae: conjunctivae normal Pupils: Equal, round and reactive pupils present EOM: EOMs intact bilaterally Direct Ophthalmoscopy: no photophobia Neck: Neck: normal visual inspection, no lymphadenopathy and no meningeal signs Chest: Chest palpation & inspection: normal inspection of the chest Resp: Effort & Inspection: normal respiratory effort Auscultation: diminished lung sounds (in the bases) bilateral Cardio: Rate: regular rate Rhythm: regular rhythm Heart sounds: Murmur heart sound present GI: GI
[2022-02-27 15:24] VITALS: BP 124/75; PULSE 72; RESP 20; TEMP 36.8; O2SAT 94
--- NOTE | 2022-02-27 16:48 | ECG_ITS ---
Measurements Intervals [place] Rate: 77 P: 41 MO: 172 QRS: -28 QRSD: 93 T: 0 QT: 194 QTc: 219 Interpretive Statements SINUS RHYTHM WITH FREQUENT VENTRICULAR PREMATURE COMPLEXES BORDERLINE LEFT AXIS DEVIATION [QRS AXIS < -20] POSSIBLE RIGHT VENTRICULAR CONDUCTION DELAY [RSR (QR) IN V1/V2] NONSPECIFIC ST & T-WAVE ABNORMALITY COMPARED TO ECG 05/28/2021 12:06:24 The PVCs are new. Electronically Signed On 02-27-2022 22:45:27 CDT by Vesna Rios M.D.
== END 2022-02-27 15:42 | disposition home or self-care (01) ==
PROVIDERS: PCP Internal Medicine
DX: U07.1 COVID-19 (principal); I10 Essential (primary) hypertension; E11.9 Type 2 diabetes mellitus without complications; E53.8 Deficiency of other specified B group vitamins; E55.9 Vitamin D deficiency, unspecified
CPT/HCPCS: 36415; 71046; 84484; 85025; 87502; 93005; 99284; C9803; U0003; U0005

== ENCOUNTER 2022-03-06 12:41 | Outpatient (CLI) | payer MEDICARE, SELFPAY ==
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
--- NOTE | ~2022-03-06 | XR_ITS ---
XR chest 2V DATE: 03/06/2022 13:20 INDICATION: Cough, congestion TECHNIQUE: 2 views COMPARISON: 02/27/2022 PA and lateral chest 09/25/2021 2 view chest 05/28/2021 CT chest FINDINGS: Normal heart size. Aortic calcification and minimal tortuosity. No hilar or mediastinal enl argement. There is minimal elevation of the left leaf of the diaphragm. Mild atelectasis at the lung bases. The lungs are otherwise clear. No pleural effusion or pulmonary vascular congestion or pneumothorax. Osteopenia. Postoperative changes of the right upper quadrant of the abdomen. IMPRESSION: Reviewed, dictated and finalized at location A. IMPRESSION:
[2022-03-06 12:54] LABS: Basophils Absolute Auto 0.08 K/mm3 (0.00-0.10); Eosinophils Absolute Auto 0.16 K/mm3 (0.02-0.50); Eosinophils Percent Auto 2.1 % (1.0-6.0); Hematocrit 35.1 % (37.0-46.0); Hemoglobin 11.4 g/dL (12.4-15.3); Immature Granulocyte Absolute 0.12 K/mm3 (0.00-0.00); Immature Granulocyte Percent A 1.6 % (0.0-0.0); Lymphocytes Absolute Auto 1.97 K/mm3 (1.10-4.50); Lymphocytes Percent Auto 25.6 % (18.0-42.0); Mean Corpuscular HGB Conc 32.5 g/dL (32.0-36.0); Mean Corpuscular Hemoglobin 35.1 pg (27.0-31.0); Mean Platelet Volume 11.3 fl (8.7-11.0); Monocytes Absolute Auto 0.74 K/mm3 (0.10-0.90); Monocytes Percent Auto 9.6 % (2.0-11.0); Neutrophils Absolute Auto 4.6 K/mm3 (1.7-7.2); Neutrophils Percent Auto 60.1 % (50.0-70.0); Nucleated Red Blood Cells Absolute Auto 0.02 K/mm3 (0.00-0.00); Nucleated Red Blood Cells Perc 0.3 % (0-0.0); Platelet Count Result 294 K/mm3 (150-420); Red Blood Count 3.25 M/mm3 (4.70-6.10); Red Cell Distribution Width 16.2 % (11.6-14.4); White Blood Count 7.7 K/mm3 (4.8-10.8)
[2022-03-06 13:11] LABS: Alanine Aminotransferase 57 U/L (16-63); Albumin Level 3.8 g/dL (3.4-5.0); Alkaline Phosphatase 62 U/L (46-116); Anion Gap 5 mmol/L (8-16); Aspartate Amino Transferase 30 U/L (15-37); Bilirubin,Total 0.7 mg/dL (0.00-1.00); Blood Urea Nitrogen 26 mg/dL (7-18); Calcium 8.6 mg/dL (8.5-10.1); Carbon Dioxide 30 mmol/L (21-32); Chloride 105 mmol/L (98-108); Estimated Glomerular Filt Rate > 60; Glucose 107 mg/dL (70-99); Osmolality Calculated 294 mOsm/kg (285-295); Potassium 4.7 mmol/L (3.5-5.1); Sodium 140 mmol/L (136-145); Total Protein 7.1 g/dL (6.4-8.2)
[2022-03-06 13:13] LABS: CRP < 0.2 mg/dL (0.0-0.9)
[2022-03-06 13:23] LABS: D Dimer 0.88 mg/L (0.19-0.50)
== END 2022-03-06 12:42 | disposition home or self-care (01) ==
PROVIDERS: PCP Internal Medicine; Visit Provider Internal Medicine
DX: R07.9 Chest pain, unspecified (principal); R79.1 Abnormal coagulation profile; R05.9 Cough, unspecified; U07.1 COVID-19
CPT/HCPCS: 36415; 71046; 71275; 80053; 85025; 85380; 86140; Q9967

== ENCOUNTER 2022-07-06 07:27 | Outpatient (CLI) | payer MEDICARE, SELFPAY ==
--- NOTE | ~2022-07-06 | MR_ITS ---
EXAMINATION: MR thoracic spine wo con DATE: 07/06/2022 08:53 INDICATION: Back pain. TECHNIQUE: Magnetic resonance imaging (MRI) of the thoracic spine was performed without intravenous c ontrast. Sagittal localizer T1-weighted FSE of the cervical spine was obtained. Thoracic spine sequen ricardo included sagittal T2-weighted FSE, sagittal T1-weighted FSE, sagittal T2-weighted FS FSE, and axi al T2-weighted FSE. COMPARISON: Chest CT 03/06/22 FINDINGS: There is 11 degrees dextroscoliosis of thoracic spine. There is 23 degrees levoscoliosis of thoracolumbar spine. There is kyphosis of thoracic spine. There is mild chronic anterior wedging of T1, T2, T3, T11, T12, and L1 vertebral bodies. There is mildly decreased disc height at T1-T2, and T5 -T6, moderately decreased disc height at T8-T9, and mildly decreased disc height at T11-T12 and T12-L 1. At T2-T3, there is a central protrusion with mild central canal stenosis. At T5-T6, there is a mandy tral extrusion with mild central canal stenosis and ventral indentation of the spinal cord. At T6-T7, there is a central extrusion with mild central canal stenosis and ventral indentation of the spinal cord. At T8-T9, the disc is bulging with mild central canal stenosis. At T11-T12, the disc is bulging with mild central canal stenosis. There is multilevel facet joint osteoarthritis, severe at many lev els bilaterally. There is multilevel mild neural foraminal stenosis bilaterally. The spinal cord sign al intensity is normal. IMPRESSION: 1. Moderate thoracic spondylosis. 2. Scoliosis and thoracic kyphosis. Reviewed, dictated and finalized at location A. 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
--- NOTE | ~2022-07-06 | MR_ITS ---
EXAMINATION: MR lumbar spine wo con DATE: 07/06/2022 08:53 INDICATION: Low back pain. TECHNIQUE: Magnetic resonance imaging (MRI) of the lumbar spine was performed without intravenous con trast. Sequences included sagittal T2-weighted FSE, sagittal T2-weighted FS FSE, sagittal T1-weighted FSE, and axial T2-weighted FSE. COMPARISON: Lumbar spine MRI 03/28/2021 FINDINGS: There is 26 degrees dextroscoliosis of lumbar spine. There is 3 mm retrolisthesis of L1 on L2, 4 mm retrolisthesis of L2 on L3, 6 mm retrolisthesis of L3 on L4, and 3 mm retrolisthesis of L4 o n L5. There is mild chronic anterior wedging of T12-L2 vertebral bodies. There is severely decreased disc height from L1-L2 through L4-L5 and mildly decreased disc height at L5-S1. The distal spinal cor d signal intensity is normal. The conus medullaris is at L1-L2. There are cysts in the kidneys measur ing up to 7.5 cm on the right. The following disc levels are specifically discussed: L1-L2: The disc is bulging. There is severe bilateral facet joint osteoarthritis. There is mild bilat eral neural foraminal stenosis. There is mild central canal stenosis. L2-L3: The disc is bulging and has an annular fissure. There is mild right and moderate left facet balbina int osteoarthritis. There is mild bilateral neural foraminal stenosis. There is mild central canal st enosis. L3-L4: The disc is bulging and has an annular fissure. There is severe bilateral facet joint osteoart hritis. There is moderate bilateral neural foraminal stenosis. There is mild central canal stenosis. There is severe stenosis of left lateral recess. L4-L5: The disc is bulging and has an annular fissure. There is severe bilateral facet joint osteoart hritis. There is moderate bilateral neural foraminal stenosis. There is mild central canal stenosis. L5-S1: The disc is bulging and has an annular fissure. There is severe bilateral facet joint osteoart hritis. There is mild right and moderate left neural foraminal stenosis. There is mild central canal stenosis. IMPRESSION: 1. Severe lumbar spondylosis, stable from 03/28/2021. 2. Lumbar dextroscoliosis. Reviewed, dictated and finalized at location A. 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
== END 2022-07-06 07:28 | disposition home or self-care (01) ==
LOC: CHSIMG 07:28
PROVIDERS: PCP Internal Medicine; Visit Provider Nurse Practitioner Family
DX: M54.6 Pain in thoracic spine (principal); M54.59 Other low back pain
CPT/HCPCS: 72146; 72148

== ENCOUNTER 2022-07-23 11:25 | Outpatient (CLI) | payer MEDICARE, SELFPAY ==
--- NOTE | ~2022-07-23 | XR_ITS ---
XR shoulder LT min 2V 07/23/2022 11:51 Indication: Left shoulder pain Procedure: 5 views left shoulder Comparison: No prior studies for comparison. Findings: There is severe glenohumeral joint osteoarthritis with loose bodies adjacent to the joint s pace. No acute fracture or traumatic malalignment. Osteopenia. No soft tissue abnormality. Impression: 1: Severe glenohumeral joint osteoarthritis. Reviewed, dictated and finalized at location B. 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
== END 2022-07-23 11:26 | disposition home or self-care (01) ==
LOC: CHSIMG 11:27
PROVIDERS: PCP Internal Medicine; Visit Provider Internal Medicine
DX: S49.92XA Unspecified injury of left shoulder and upper arm, initial encounter (principal); M19.012 Primary osteoarthritis, left shoulder
CPT/HCPCS: 73030

== ENCOUNTER 2022-07-27 10:13 | Outpatient (CLI) | payer MEDICARE, SELFPAY ==
[2022-07-27 10:41] LABS: Basophils Absolute Auto 0.07 K/mm3 (0.00-0.10); Basophils Percent Auto 0.8 % (0.0-1.0); Eosinophils Absolute Auto 0.03 K/mm3 (0.02-0.50); Eosinophils Percent Auto 0.3 % (1.0-6.0); Hematocrit 33.5 % (37.0-46.0); Hemoglobin 10.7 g/dL (12.4-15.3); Immature Granulocyte Absolute 0.08 K/mm3 (0.00-0.00); Immature Granulocyte Percent A 0.9 % (0.0-0.0); Immature Platelet Fraction Pct 4.7 % (1.0-7.0); Immature Reticulocyte Fraction 19.1 % (2.0-16.52); Lymphocytes Absolute Auto 1.07 K/mm3 (1.10-4.50); Lymphocytes Percent Auto 12.4 % (18.0-42.0); Mean Corpuscular HGB Conc 31.9 g/dL (32.0-36.0); Mean Corpuscular Hemoglobin 35.2 pg (27.0-31.0); Mean Corpuscular Volume 110.2 fL (78.0-102.0); Mean Platelet Volume 10.9 fl (8.7-11.0); Monocytes Absolute Auto 0.63 K/mm3 (0.10-0.90); Monocytes Percent Auto 7.3 % (2.0-11.0); Neutrophils Absolute Auto 6.8 K/mm3 (1.7-7.2); Neutrophils Percent Auto 78.3 % (50.0-70.0); Nucleated Red Blood Cells Absolute Auto 0.03 K/mm3 (0.00-0.00); Nucleated Red Blood Cells Perc 0.3 % (0-0.0); Platelet Count Result 233 K/mm3 (150-420); Red Blood Count 3.04 M/mm3 (4.70-6.10); Red Cell Distribution Width 18.2 % (11.6-14.4); Reticulocyte Hemoglobin Conten 36.4 pg (28.0-35.0); Reticulocytes Absolute 0.08 M/mm3 (0.02-0.1); White Blood Count 8.6 K/mm3 (4.8-10.8)
[2022-07-27 11:29] LABS: Alanine Aminotransferase 22 U/L (16-63); Alkaline Phosphatase 49 U/L (46-116); Anion Gap 5 mmol/L (8-16); Aspartate Amino Transferase 13 U/L (15-37); Bilirubin,Total 0.9 mg/dL (0.00-1.00); Blood Urea Nitrogen 31 mg/dL (7-18); Calcium 8.5 mg/dL (8.5-10.1); Carbon Dioxide 32 mmol/L (21-32); Chloride 106 mmol/L (98-108); Estimated Glomerular Filt Rate 55; Ferritin 223 ng/mL (26-388); Glucose 115 mg/dL (70-99); Iron 87 ug/dL (65-175); Osmolality Calculated 303 mOsm/kg (285-295); Percent Iron Saturation 29 % (12-57); Potassium 5.2 mmol/L (3.5-5.1); Sodium 143 mmol/L (136-145); Total Protein 6.7 g/dL (6.4-8.2)
[2022-07-27 11:46] LABS: CRP < 0.5 mg/dL (0.0-0.9)
== END 2022-07-27 10:14 | disposition home or self-care (01) ==
LOC: CHSLAB 10:15
PROVIDERS: PCP Internal Medicine; Visit Provider Internal Medicine
DX: M54.9 Dorsalgia, unspecified (principal); I10 Essential (primary) hypertension; D64.9 Anemia, unspecified
CPT/HCPCS: 36415; 80053; 82728; 83540; 83550; 85025; 85046; 85055; 86140

== ENCOUNTER 2022-07-31 17:20 | Emergency (ER) | payer MEDICARE, SELFPAY ==
[2022-07-31] VITALS (30 sets, daily range): BP systolic 119–155; BP diastolic 64–105; PULSE 86–120; RESP 17–24; TEMP 36.3; O2SAT 86–99
--- NOTE | ~2022-07-31 | CT_ITS ---
EXAMINATION: CT brain wo con DATE: 07/31/2022 19:00 INDICATION: fall, occipital injury . TECHNIQUE: Computed tomography (CT) of the head was performed without intravenous contrast. The mA wa s adjusted according to patient size. Iterative reconstruction technique was employed. The dose-lengt h product was 756.67 mGy-cm. COMPARISON: 10/28/2021 FINDINGS: No acute intracranial hemorrhage or extra-axial fluid collection. No hydrocephalus, mass, or herniation. No acute ischemic infarct. Unremarkable dural venous sinus attenuation. No acute osseous abnormality. The aerated spaces are clear. Moderate atrophy and chronic white matter change. Atherosclerotic intracranial calcification. Bilater al lens replacements. IMPRESSION: No acute intracranial process. Reviewed, dictated and finalized at location K. NE CONTENT COORDINATOR
--- NOTE | ~2022-07-31 | CT_ITS ---
EXAMINATION: CT cervical spine wo con DATE: 07/31/2022 19:01 INDICATION: fall, head injury TECHNIQUE: Computed tomography (CT) of the cervical spine was performed without intravenous contrast. Automated exposure control and iterative reconstruction technique were employed. The dose-length pro duct was 470.98 mGy-cm. COMPARISON: 02/07/2022 FINDINGS: Vertebral Body Alignment: Intact. Multilevel retrolistheses and anterolistheses, stable. Craniocervical and atlantoaxial alignment: Severe degenerative change, with pannus. Alignment intact. Osseous structures/fracture: No evidence of a lytic or blastic process in the visualized spine. No e vidence of acute fracture. Cervical soft tissues: The paraspinal soft tissues planes are maintained. Senescent pulmonary change. Small left and moderate right pleural fluid collections. Arch and bilateral carotid bifurcation calc ifications. Degenerative changes: Multilevel severe degenerative disc disease. Multilevel severe bilateral neural foraminal narrowing. A posterior disc osteophyte complex at C3-4 causes moderate central canal narro wing. IMPRESSION: No acute fracture or traumatic malalignment in the cervical spine. Moderate right and small left pleu ral effusions. Reviewed, dictated and finalized at location K. L PROCESS SERVER IMPRESSION: No acute fracture or traumatic malalignment in the cervical spine. Moderate rig ht and small left pleural effusions.
--- NOTE | ~2022-07-31 | CT_ITS ---
EXAMINATION: CT chst ab pel melba lum wo DATE: 07/31/2022 19:01 INDICATION: back pain, fall, hip pain . TECHNIQUE: Computed tomography (CT) of the chest, abdomen, and pelvis was performed with 100 mL Omnip aque-350 intravenous contrast. Automated exposure control and iterative reconstruction technique were employed. The dose-length product was 1111.92 mGy-cm. COMPARISON: CT T and L-spine 05/12/2020, MR thoracic spine 07/06/2022. FINDINGS: CHEST: No thoracic aortic injury. Atherosclerotic aortic calcification. Anemia. No mediastinal hematoma. No pericardial effusion. Heavy coronary artery calcification. Mild cardiomegaly. No acute lung injury. Rounded right lateral and inferior air cyst/pleural bleb Dependent atelectasis. No pneumothorax. Moderate right and small left pleural effusions ABDOMEN/PELVIS: No solid organ injury. Cholecystectomy. Bilobed right upper pole renal cyst with thin peripheral rim calcification. Right nephrolithiasis. No evidence of bowel or mesenteric injury. No free fluid or free air. No retroperitoneal hematoma. Pelvic contents are atraumatic. Bladder wall thickening likely due to outlet compromise from prostato megaly. Mild diverticulosis. MUSCULOSKELETAL: No acute fracture. Loose body in an anterior left shoulder joint recess. No fracture or traumatic malalignment of the thoracic or lumbar spine. Multilevel severe degenerative disc disease in the lumbar spine. Severe lumbar scoliosis. IMPRESSION: Moderate left and small right pleural effusions, both new since the prior study on 07/06/2022. Otherwi se, no acute process detected in the chest, abdomen, or pelvis. Reviewed, dictated and finalized at location K. STIAN SCIENCE READER IMPRESSION: Moderate left and small right pleural effusions, both new since the prior study on 07/06/2022. Otherwise, no acute process detected in the chest, abdomen, or p opal.
--- NOTE | 2022-07-31 17:50 | ECG_ITS ---
Measurements Intervals [place] Rate: 90 P: ID: 0 QRS: -12 QRSD: 93 T: -11 QT: 366 QTc: 448 Interpretive Statements SINUS RHYTHM WITH SINUS ARRHYTHMIA FREQUENT ATRIAL PREMATURE COMPLEXES EARLY PRECORDIAL R/S TRANSITION LEFT VENTRICULAR HYPERTROPHY WITH ST-T CHANGE BORDERLINE ST-T WAVE ABNORMALITY- ANTEROLAT/INF LEADS BASELINE ARTIFACT- I, II, III, AVR, AVL, AVF, V2-V6 ABNORMAL ECG COMPARED TO ECG 02/27/2022 13:18:07 FREQUENT ATRIAL PREMATURE COMPLEXES NOW PRESENT Electronically Signed On 07-31-2022 21:13:06 COMMUNICATIONS ANALYST by Jony Mix D.O.
[2022-07-31 18:15] LABS: Basophils Absolute Auto 0.04 K/mm3 (0.00-0.10); Basophils Percent Auto 0.5 % (0.0-1.0); Eosinophils Absolute Auto 0.03 K/mm3 (0.02-0.50); Eosinophils Percent Auto 0.4 % (1.0-6.0); Hematocrit 32.1 % (37.0-46.0); Hemoglobin 10.3 g/dL (12.4-15.3); Immature Granulocyte Absolute 0.13 K/mm3 (0.00-0.00); Immature Granulocyte Percent A 1.7 % (0.0-0.0); Lymphocytes Percent Auto 9.1 % (18.0-42.0); Mean Corpuscular HGB Conc 32.1 g/dL (32.0-36.0); Mean Corpuscular Hemoglobin 35.2 pg (27.0-31.0); Mean Corpuscular Volume 109.6 fL (78.0-102.0); Mean Platelet Volume 10.9 fl (8.7-11.0); Monocytes Absolute Auto 0.76 K/mm3 (0.10-0.90); Monocytes Percent Auto 9.9 % (2.0-11.0); Neutrophils Percent Auto 78.4 % (50.0-70.0); Nucleated Red Blood Cells Absolute Auto 0.04 K/mm3 (0.00-0.00); Nucleated Red Blood Cells Perc 0.5 % (0-0.0); Platelet Count Result 192 K/mm3 (150-420); Red Blood Count 2.93 M/mm3 (4.70-6.10); Red Cell Distribution Width 18.1 % (11.6-14.4); White Blood Count 7.7 K/mm3 (4.8-10.8)
[2022-07-31] MEDS: SODIUM CHLORIDE 0.9% IV 500 ML 999 ML IV CONT (18:24)
[2022-07-31] MEDS: MORPHINE SULFATE (*CRX) 2 MG/ML INJ IV PUSH (18:25)
[2022-07-31] MEDS: ONDANSETRON INJ 4 MG/2 ML VIAL IV PUSH (18:25)
--- NOTE | 2022-07-31 18:30 | PC.NURSE ---
pt states stopped all medications [address] encarnacion is aware.
[2022-07-31 18:33] LABS: Alanine Aminotransferase 18 U/L (16-63); Albumin Level 3.4 g/dL (3.4-5.0); Alkaline Phosphatase 59 U/L (46-116); Anion Gap 6 mmol/L (8-16); Aspartate Amino Transferase 16 U/L (15-37); Bilirubin,Total 0.8 mg/dL (0.00-1.00); Blood Urea Nitrogen 32 mg/dL (7-18); Calcium 8.4 mg/dL (8.5-10.1); Carbon Dioxide 32 mmol/L (21-32); Chloride 108 mmol/L (98-108); Estimated CRCL calculation 36 ml/min; Estimated Glomerular Filt Rate > 60; Glucose 128 mg/dL (70-99); Lactic Acid Reflex 1.6 mmol/L (0.4-2.0); Osmolality Calculated 310 mOsm/kg (285-295); Sodium 146 mmol/L (136-145); Total Protein 6.6 g/dL (6.4-8.2); Troponin I 34.8 ng/L (0.00-60.4)
--- NOTE | 2022-07-31 19:02 | PC.NURSE ---
pt report to adan borden. no questions or concerns at this time. call levine in reach. informed pt and of change of staff. voiced understanding.
[2022-07-31 19:13] LABS: Add Urine Microscopic? YES; Appearance Urine Clear (Clear); Bilirubin Urine Negative (Negative); Blood Urine Negative (Negative); Color Urine Yellow (Yellow); Glucose Urine UA Negative (Negative); Ketones Urine Negative (Negative); Leukocyte Esterase Ur Negative (Negative); Nitrate Urine Negative (Negative); Protein Urine Negative (Negative); Specific Grav Ur >= 1.030 (1.010-1.020)
[2022-07-31 19:18] LABS: Bacteria Urine Trace /hpf; RBC Urine 0-2 /hpf (0-2); WBC Urine 0-3 /hpf (0-3)
--- NOTE | 2022-07-31 19:36 | ECG_ITS ---
Measurements Intervals [place] Rate: 117 P: 46 NC: 154 QRS: -18 QRSD: 98 T: 180 QT: 257 QTc: 359 Interpretive Statements SINUS OR ECTOPIC ATRIAL TACHYCARDIA FREQUENT VENTRICULAR PREMATURE COMPLEXES EARLY PRECORDIAL R/S TRANSITION LEFT VENTRICULAR HYPERTROPHY AND ST-T CHANGE INFERIOR INFARCT, AGE INDETERMINATE ST-T WAVE ABNORMALITY IN ANTEROLATERAL LEADS- CONSIDER ISCHEMIA BASELINE ARTIFACT- II, III, AVR, AVF, V1 ABNORMAL ECG COMPARED TO ECG 07/31/2022 18:05:34 SINUS OR ECTOPIC ATRIAL TACHYCARDIA NOW PRESENT Electronically Signed On 07-31-2022 21:15:38 [facility] DIRECTOR by Jony Mix D.O.
[2022-07-31 20:13] LABS: Troponin I 29.3 ng/L (0.00-60.4)
[2022-07-31] MEDS: IPRATROPIUM 0.5 MG/ALBUTEROL SULFATE 2.5 MG AMPUL.NEB 3 ML INHALATION (20:27)
[2022-07-31 20:31] LABS: Base Excess ABG -0.2 mmol/L (0-2); Modified Allen's Test Pass; Oxygen Content ABG 15.4 %vol (16.0-22.0); Oxygen Saturation ABG 96.6 % (95-97); Oxyhemoglobin 96.1 % (94-100); PCO2 ABG 48.9 mmHg (35-45); PO2 ABG 101.3 mmHg (75-85); Site Drawn RIGHT RADIAL; Total Hemoglobin 11.3 g/dL (12.0-18.0); pH ABG 7.34 (7.35-7.45)
[2022-07-31] MEDS: METOPROLOL TARTRATE INJ 5 MG/5 ML VIAL 2.5 MG IV PUSH (20:31)
[2022-07-31 20:32] LABS: Device NASAL CANNULA
[2022-07-31] MEDS: methylPREDNISolone SOD SUCC 125 MG VIAL IV PUSH (20:32)
[2022-07-31] MEDS: FUROSEMIDE INJ 40 MG/4 ML VIAL IV PUSH (20:32)
--- NOTE | 2022-07-31 20:46 | PC.NURSE ---
Dr Valenzuela spoke to pt and family about labs and results, POC to transfer for new onset A-fib. Call placed to [facility], spoke to juany Gibbons. will await call back from hospitalist.
[2022-07-31 20:53] LABS: NT Pro B Type Natriuretic Pept 3520 pg/mL (0-450)
--- NOTE | 2022-07-31 21:02 | PC.NURSE ---
Pt resting, states his breathing has improved, awaiting call back from TO Jones at this time. Monitor shows A-fib, call levine at side.
[2022-07-31 21:34] LABS: Influenza A QL RT-PCR Negative (Negative); Influenza B QL RT-PCR Negative (Negative); SARS-CoV-2 RNA PCR Negative (Negative)
--- NOTE | 2022-07-31 21:48 | PC.NURSE ---
Call back from Dr Nicolas Jones speaking c Dr Lee for transfer. Pt is accepted, awaiting call back for bed assignemnt.
--- NOTE | 2022-07-31 22:06 | ED.GENADULT ---
HPI - General Adult General Chief complaint: Fall Stated complaint: fall, lower back pain Time Seen by Provider: 07/31/22 17:24 Source: patient, family and RN notes reviewed Mode of arrival: ambulatory Limitations: no limitations History of Present Illness complaint: pt fell accidentally, hitting occiput. no LOC. Onset (ago): hour(s) (2) Location: head Radiation: non-radiation Severity: mild Severity scale (1-10): 3 Quality: aching Pain Consistency: constant Relieving factors: none Exacerbating factors: none Associated symptoms: denies other symptoms Treatments prior to arrival: none Related Data Home Medications Medication Instructions Recorded Confirmed No Home Medications 07/31/22 07/31/22 Allergies Allergy/AdvReac Type Severity Reaction Status Date / Time Penicillins Allergy Intermediate Unknown Verified 02/07/22 12:07 Review of Systems Review of Systems: All systems reviewed & are unremarkable except as noted in HPI and below Constitutional: Constitutional: Reports no additional constitutional complaints Eyes: Eyes: Reports no additional eye complaints ENT: Reports system reviewed and no additional complaints, except as documented Cardiovascular: Cardiovascular: Reports no additional cardiovascular complaints Respiratory: Respiratory: Reports no additional respiratory complaints Gastrointestinal: Gastrointestinal: Reports no additional gastrointestinal complaints Musculoskeletal: Musculoskeletal: Reports no additional musculoskeletal complaints Integumentary/Breasts: Skin/Breast: Reports system reviewed and no additional complaints, except as docu Neurologic: Reports system reviewed and no additional complaints, except as documented Psychiatric: Psychiatric: Reports no additional psychiatric complaints Endocrine: Endocrine: Reports no additional endocrine complaints Hematologic/Lymphatic: Hematologic/Lymphatic: Reports no additional hematologic/lymphatic complaints Allergic/Immunologic: Allergic/Immunologic: Reports no additional allergic/immunologic complaints [facility] Past Medical History Medical History Arthritis Atrial fibrillation Atrial fibrillation Benign essential HTN Community acquired pneumonia (~09/13/19) Diabetes mellitus Hypertension Low back pain Lumbar spondylosis Type 2 diabetes mellitus without complications Vitamin B 12 deficiency Vitamin D deficiency, unspecified Surgical History Surgical History History of back surgery History of knee replacement Hx of cholecystectomy Hx of tonsillectomy S/P cataract surgery Family History Family History Mother Family history of coronary artery disease Father , father of metastatic lung cancer Family history of coronary artery disease Other Family history of malignant neoplasm Social History Social History Smoking status: Unknown if ever smoked Alcohol intake: former Substance use: unknown Substance use type: does not use Gender identity (if verbalized by the patient): Male Spiritual care concerns: No Agree to blood products: Yes Exam Const: General: no acute distress and well nourished Nutritional Appearance: well nourished Orientation/consciousness: patient oriented x3 Limitations: no limitations HENMT: Head: normal to inspection Ears: external ears normal, TM's normal bilaterally and EAC's normal Face/Nose/Sinus: Normal external nose present, Normal nares present, normal facial exam and sinuses nontender Face and sinus: normal facial exam and sinuses nontender Mouth: Yes Normal oral and palatal mucosa present and Yes moist mucous membranes Teeth and gingiva: dentition normal Throat: posterior oropharynx normal Eyes: Conjunctivae: conjunctiva
--- NOTE | 2022-07-31 22:45 | PC.NURSE ---
Call back from Edwige at [facility], no bed available tonight they will try to accept pt in morning. Dr Valenzuela informed on plan, Pt informed on POC at this t slava.
[2022-08-01] VITALS (41 sets, daily range): BP systolic 112–128; BP diastolic 67–92; PULSE 87–101; RESP 17–21; TEMP 36.4–36.6; O2SAT 95–99
--- NOTE | 2022-08-01 00:12 | PC.NURSE ---
Pt sleeping, resting comfortably, no distress noted, RR even and nonlabored, remains on monitor, noted SR at this time. VSS, will continue to monitor.
--- NOTE | 2022-08-01 02:09 | PC.NURSE ---
Pt is sleeping side lying position, no distress noted, VSS, HR 92. Call levine in reach, pt uses urinal self when needed. Will continue to monitor.
--- NOTE | 2022-08-01 02:50 | PC.NURSE ---
Pt repositioned in bed c HOB elevated and feet elevated slightly. Pt c/o pain in his back from falling yesterday and has soreness and spasms. Order for pain med obtained from [facility].
[2022-08-01] MEDS: MORPHINE SULFATE (*CRX) 2 MG/ML INJ IV PUSH (02:53)
--- NOTE | 2022-08-01 04:23 | PC.NURSE ---
Pt sleeping, resting comfortably, no distress noted, VSS, continuing to monitor unatil bed available at [place].
--- NOTE | 2022-08-01 05:10 | PC.NURSE ---
Call back from juany Gibbons at [facility]. Will call for report p 7AM, pt is to go to Rm 251. Pt is stable, SR on monitor and sleeping, VSS.
--- NOTE | 2022-08-01 06:13 | PC.NURSE ---
Pt sleeping, resting comfortably, monitor continues to show SR at this time. No changes, call levine at pt side.
--- NOTE | 2022-08-01 07:37 | PC.NURSE ---
0710 pt resting quietly pt given a drink of water and updated on his transfer to [facility]
== END 2022-08-01 08:55 | disposition short-term general hospital (02) ==
PROVIDERS: Emergency Provider Emergency Medicine; PCP Internal Medicine
DX: I48.91 Unspecified atrial fibrillation (principal); I50.9 Heart failure, unspecified; W19.XXXA Unspecified fall, initial encounter; I10 Essential (primary) hypertension; E11.9 Type 2 diabetes mellitus without complications; E53.8 Deficiency of other specified B group vitamins; E55.9 Vitamin D deficiency, unspecified; Z20.822 Contact with and (suspected) exposure to COVID-19
CPT/HCPCS: 36415; 36600; 70450; 71250; 72125; 72128; 72131; 74176; 80053; 81001; 82805; 83605; 83880; 84484; 85025; 87636; 93005; 94640; 96361; 96365; 96375; 96376; 99285; J0696; J1940; J2270; J2405; J2930; J7040

== ENCOUNTER 2022-08-01 09:42 | Inpatient (IN) | payer MEDICARE, SELFPAY ==
[2022-08-01] VITALS (7 sets, daily range): BP systolic 116–122; BP diastolic 57–70; PULSE 60–87; RESP 16–18; TEMP 35.9–36.4; O2SAT 90–100; BMI 27.8
--- NOTE | ~2022-08-01 | US_ITS ---
EXAMINATION: US thoracentesis DATE: 08/01/2022 16:17 INDICATION: pleural effusion TECHNIQUE: The procedure and its risks, benefits, and alternatives were discussed with the patient. P otential risks discussed included bleeding, infection, and pneumothorax. The patient understood the r isks and agreed to proceed. The skin was prepped and draped in sterile fashion. 1% lidocaine was used for local anesthesia. Under ultrasound guidance, a 5 Fr catheter with trochar was advanced into the right pleural effusion. Fluid was aspirated. The catheter was removed, and a dressing was applied. Th ere were no immediate complications. FINDINGS: Ultrasound images demonstrate a right pleural effusion and the catheter within the fluid. IMPRESSION: 1. Successful ultrasound-guided thoracentesis yielding 100 mL of lenka-colored fluid. Reviewed, dictated and finalized at location A. LINE OPERATOR
--- NOTE | ~2022-08-01 | NM_ITS ---
EXAMINATION: NM vashti stress w perfusion DATE: 08/05/2022 11:27 INDICATION: Elevated troponin TECHNIQUE: Rest images were obtained following intravenous administration of 11.9 mCi Tc99m tetrofosm in (Myoview). The patient was infused intravenously with Lexiscan (Regadenoson). Then, 33.5 mCi Tc99m tetrofosmin (Myoview) was administered intravenously, and stress images were obtained. Data was serafin nstructed into short axis and horizontal and vertical long axis SPECT images. Gated SPECT images were also obtained. COMPARISON: None. FINDINGS: There is small mild to moderate severity perfusion defect involving the apical and apical l ateral segments on both the rest and stress images consistent with infarct. There appears to be a min imal degree of reversibility consistent with some additional ischemia. Although not cold by computer scarring there appears to be additional mild reversible ischemia extending into the apical inferior s egment. There is normal left ventricular chamber size with mildly decreased left ventricular ejection fraction measures 37%. There is a mildly decreased wall motion with focal moderately decreased wall motion at the apical lateral and apical inferior segments IMPRESSION: 1. Small mild to moderate severity infarct with superimposed minimal reversible ischemia at the apica l and apical lateral segments. Suggestion of additional minimal ischemia extending into adjacent apic al inferior segment although this is not identified by computer scoring. 2. Left ventricular ejection fraction measuring 37%. Reviewed, dictated and finalized at location A. NURSE IMPRESSION: 1. Small mild to moderate severity infarct with superimposed minimal reversible ischemia at the apical and apical lateral segments. Suggestion of additional m inimal ischemia extending into adjacent apical inferior segment although this i s not identified by computer scoring. 2. Left ventricular ejection fraction measuring 37%.
--- NOTE | ~2022-08-01 | XR_ITS ---
XR chest 1V portable 08/03/2022 13:20 Indication: Shortness of breath Procedure: AP portable chest Comparison: Comparison to multiple prior studies sequentially, with oldest reviewed study dated 01/17. Findings: There is left basilar airspace disease. Small pleural effusions. Stable cardiomediastinal s ilhouette. There is dextroscoliosis. Advanced osteoarthritis of the shoulders. Impression: 1: Left basilar airspace disease may represent atelectasis or pneumonia. 2: Small pleural effusions. Reviewed, dictated and finalized at location A. IL ACCOUNT MANAGER Impression: 1: Left basilar airspace disease may represent atelectasis or pneumonia. 2: Small pleural effusions.
--- NOTE | ~2022-08-01 | XR_ITS ---
EXAMINATION: [id number]_[id number]_CR DATE: 08/01/2022 15:41 INDICATION: Right pleural effusion status post thoracentesis. TECHNIQUE: Frontal and lateral views of the chest were obtained. COMPARISON: Chest 2 views 03/06/2022, chest CT 07/31/2022 FINDINGS: There are small pleural effusions. There are airspace opacities in the lower lung zones. No pneumothorax. Cardiomegaly is noted. Surgical clips in the right upper quadrant are likely from chol ecystectomy. There is mild chronic anterior wedging of T12 and L1 vertebral bodies. IMPRESSION: 1. Small pleural effusions with improvement on the right status post thoracentesis. 2. Airspace opacities in the lower lung zones, consistent with atelectasis versus pneumonia. 3. Cardiomegaly. Reviewed, dictated and finalized at location A. NSIC IDENTIFICATION SPECIALIST IMPRESSION: 1. Small pleural effusions with improvement on the right status post thoracente sis. 2. Airspace opacities in the lower lung zones, consistent with atelectasis vers us pneumonia. 3. Cardiomegaly.
--- NOTE | ~2022-08-01 | US_ITS ---
EXAMINATION:US venous doppler LE BI INDICATION:Leg edema TECHNIQUE: Multiple grayscale, color flow and Doppler images of the bilateral lower extremity deep ve nous systems were obtained and reviewed. COMPARISON:No prior studies for comparison. FINDINGS: The common femoral, superficial femoral and popliteal veins demonstrate normal respiratory variation, augmentation and compressibility. Color flow is also seen within the posterior tibial, pe roneal, greater saphenous and profunda veins. IMPRESSION: 1: No lower extremity deep venous thrombosis. Reviewed, dictated and finalized at location A. ECTION PRINTER
--- NOTE | ~2022-08-01 | MR_ITS ---
EXAMINATION: MR brain/brain stem wo con DATE: 08/01/2022 14:06 INDICATION: Frequent falls TECHNIQUE: Magnetic resonance imaging (MRI) of the brain and brainstem was performed without intraven ous contrast. Sequences included sagittal and axial T1-weighted SE, axial diffusion-weighted FS SE, a xial T2*-weighted GRE, axial T2-weighted FLAIR Propeller, and axial T2-weighted Propeller. Apparent d iffusion coefficient (ADC) maps were created. COMPARISON: CT dated 07/31/2022. FINDINGS: Mild generalized brain parenchymal volume loss within normal limits for age. There are scat tered mild periventricular and subcortical white matter changes, most likely related to small vessel ischemic disease (microangiopathy). No ventriculomegaly or midline shift. Paranasal sinuses are unrem arkable. Structures of the posterior fossa including 7/8th cranial nerve complexes are normal. Orbits are symmetric without disconjugate gaze. Flow voids in the major intracerebral arteries are present. No acute infarction, hemorrhage, mass or mass effect. Midline sagittal images are unremarkable. No a bnormality of the sella turcica. IMPRESSION: 1. No acute intracranial abnormality. 2: Chronic age-related findings. Reviewed, dictated and finalized at location A. NE ARCHITECT
--- NOTE | ~2022-08-01 | CT_ITS ---
EXAMINATION: CTA brain carotid DATE: 08/01/2022 13:13 INDICATION: Head injury. Frequent falls. TECHNIQUE: Computed tomographic angiography (CTA) of the head was performed without and with 100 mL O mnipaque-350 intravenous contrast. CTA of the neck was performed with intravenous contrast. Automated exposure control and iterative reconstruction technique were employed. The dose-length product was 1 868.17 mGy-cm. Maximum intensity projection and volume rendered 3D-reconstructions were created by th e technologist on a separate workstation. COMPARISON: Head CT 07/31/2022, brain MRI 08/01/2022 FINDINGS: HEAD CTA: There is a small area of cystic encephalomalacia in the right frontal lobe white matter. Th ere are scattered areas of low attenuation in the cerebral white matter, which is within normal limit s for the patient's age. There is no intracranial hemorrhage, acute infarction, or abnormal intracra nial mass lesion. The ventricles are normal in size. There are likely changes of ocular lens replacem ent surgeries. There is mild mucosal thickening in the paranasal sinuses. The mastoid air cells are n ormal. The vertebral arteries are codominant. There is no significant stenosis of basilar artery or t he posterior cerebral arteries. The posterior communicating arteries are normal. There is no signific ant stenosis of intracranial internal carotid arteries or anterior or middle cerebral arteries. Right A1 anterior cerebral artery segment is small, a normal variant. The anterior communicating artery is normal. There is no aneurysm. NECK CTA: There are moderate-sized right and small left pleural effusions. There are no pathologicall y enlarged lymph nodes. There is no significant stenosis of the vertebral arteries. There is plaque i n the proximal internal carotid arteries. There is 0% stenosis of the proximal right internal carotid artery relative to normal distal artery lumen diameter (NASCET criteria). There is 0% stenosis of th e proximal left internal carotid artery relative to normal distal artery lumen diameter. There is sev ere cervical spondylosis. IMPRESSION: 1. Small area of cystic encephalomalacia in the right frontal lobe white matter. 2. No aneurysm or significant intracranial arterial stenosis. 3. 0% stenosis of the proximal internal carotid arteries relative to normal distal artery lumen diame ters (NASCET criteria). 4. Moderate-sized right and small left pleural effusions. Reviewed, dictated and finalized at location A. H CARRIER IMPRESSION: 1. Small area of cystic encephalomalacia in the right frontal lobe white matter . 2. No aneurysm or significant intracranial arterial stenosis. 3. 0% stenosis of the proximal internal carotid arteries relative to normal dis cristofer artery lumen diameters (NASCET criteria). 4. Moderate-sized right and small left pleural effusions.
--- NOTE | 2022-08-01 11:16 | PM.IMHP ---
H&P: HPI History of Present Illness Date/Time: 08/01/22 11:16 Chief Complaint: Fall Narrative: Patient is an 87-year-old male with a past medical history of hypertension, hyperlipidemia, diabetes, anemia who presented to the ED at [facility] after a fall. Upon arrival patient was noted to be in AFib RVR, Which prompted transfer to [facility]. However prior to in the hospital patient went to the cemetery to put m[place] on the [place]. However when he was bending down to put the mays there he open his eyes and realize he fell backwards and he was lying on his back and hit the back of his head. He denies any new recent chest pain, nausea, vomiting, diarrhea, constipation, sweats, fevers, chills, lightheadedness, dizziness, palpitations. He did admit to having shortness of breath over the last couple days which has been worse. He did state that he also had a cough however it is been dry with no production. He also states that his lung she does feel very tight in the bases. Patient stated that he has had multiple falls over the last month. Patient stated that he has fallen 3 times which he does loses balance and falls to the left. He denies any other weaknesses including upper extremity, facial weakness on the left. 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 patient also stated that he does stand he does get very weak and his legs just give out at that time. Patient has not been taking any of his meds for the last 3 weeks and stated that he did inform his primary care provider of that. According to his past medical history patient appears to been on Namenda, duloxetine, tamsulosin, and donepezil. It also appears he has recently been treated with steroids. CT of the chest did show moderate left-sided pleural effusion and small right-sided pleural effusion. Labs did indicate an elevated BNP. Patient also is on 2 L nasal cannula. head CT was also performed and showed no acute intracranial findings. Patient is being admitted to the hospitalist service under observation Review of Systems Review of Systems: All systems reviewed & are unremarkable except as noted in HPI and below [facility] Past Medical History Medical History Arthritis Atrial fibrillation Benign essential HTN Community acquired pneumonia (~09/13/19) COVID-19 Dementia Diabetes mellitus Fall Hypertension Lumbar spondylosis Type 2 diabetes mellitus without complications Vitamin B 12 deficiency Vitamin D deficiency, unspecified Surgical History Surgical History History of back surgery History of knee replacement Hx of cholecystectomy Hx of tonsillectomy S/P cataract surgery Family History Family History Mother Family history of coronary artery disease Father , father of metastatic lung cancer Family history of coronary artery disease Other Family history of malignant neoplasm Social History Social History (Updated 08/01/22 @ 11:40 by GUADALUPE Giles) Social History: Patient lives with his in [place]. He has one child, and 3 grandchildren, however, one is . He elects his of 63 yearsTere to be his surrogate. He denies having any pets. Smoking status: Never smoker Alcohol intake: former Substance use: unknown Substance use type: does not use Last use: 20 plus years Lack of Transportation: No Lack of Food: Never True Current Housing: I Have Housing Concerned About Future Housing: No Difficulty Paying Gas/Electric Bills: No Difficulty Paying for Meds: No Currently Unemployed: No Education: High School Diploma/GED Difficulty w/ Childcare or Family Care: No Living arrangements: with family Occupation/Education: retired Additional oc
--- NOTE | 2022-08-01 11:26 | ADMGEN ---
This patient, Neil Wharton, was admitted to 2 Medical Room 251-01. Patient/family oriented to hospital policies and general routines including ID bracelet, bed and alarms, visiting hours, pain management, procedures, bathroom and other care routines, personal items, smoking policy, room service/diet, and visiting hours. Information on how to activate the Rapid Response Team has been discussed. Patient/Family are encouraged to report perceived risks to care and to ask questions if they do not understand what they are told or what they should do.
--- NOTE | 2022-08-01 11:45 | ECG_ITS ---
Measurements Intervals [place] Rate: 79 P: 42 AK: 183 QRS: -14 QRSD: 100 T: 29 QT: 388 QTc: 446 Interpretive Statements SINUS RHYTHM WITH OCCASIONAL VENTRICULAR PREMATURE COMPLEXES LEFT VENTRICULAR HYPERTROPHY AND ST-T CHANGE [VOLTAGE CRITERIA PLUS ST/T ABNORMALITY] COMPARED TO ECG 07/31/2022 19:43:51 SINUS RHYTHM NOW PRESENT Electronically Signed On 08-01-2022 14:45:25 SPECIAL ED ASSISTANT by Moon Joaquin M.D.
[2022-08-01 11:48] LABS: Hemoglobin A1C 5.5 % (<5.7)
[2022-08-01 11:53] LABS: Iron 79 ug/dL (49-181)
[2022-08-01 11:56] LABS: INR 1.1; Prothrombin Time 13.8 Seconds (11.1-14.7)
[2022-08-01 11:57] LABS: Alanine Aminotransferase 23 U/L (6-50); Albumin Level 3.9 g/dL (3.5-5.1); Alkaline Phosphatase 44 U/L (38-126); Amylase 43 U/L (30-110); Anion Gap 5 mmol/L (8-16); Aspartate Amino Transferase 38 U/L (17-59); Bilirubin,Total 0.9 mg/dL (0.2-1.3); Blood Urea Nitrogen 35 mg/dL (9-20); Carbon Dioxide 31 mmol/L (22-30); Chloride 103 mmol/L (98-107); Cholesterol 119 mg/dL (0-200); Estimated CRCL calculation 41 ml/min; Estimated Glomerular Filt Rate > 60; Glucose 141 mg/dL (65-110); Lactate Dehydrogenase 258 U/L (120-246); Potassium 5.2 mmol/L (3.4-5.0); Sodium 139 mmol/L (137-145); Triglycerides 50 mg/dL (<150)
[2022-08-01 12:00] LABS: Transferrin 205 mg/dL (206-381)
[2022-08-01 12:03] LABS: Percent Iron Saturation 28 % (20-50)
[2022-08-01 12:56] LABS: Folic Acid 14.2 ng/mL (2.76->20)
[2022-08-01 13:31] LABS: Free T4 Free Thyroxine Reflex 1.21 ng/dL (0.78-2.19)
[2022-08-01 14:14] LABS: Total Triiodothyronine (T3) 0.85 NG/ML (0.97-1.69)
--- NOTE | 2022-08-01 15:09 | PCPTNOTE ---
Attempted PT eval, pt off the floor for testing. Will Follow.
[2022-08-01] MEDS: DOCUSATE SODIUM 100 MG CAPSULE PO (16:37)
[2022-08-01] MEDS: FUROSEMIDE INJ 40 MG/4 ML VIAL IV PUSH (16:37)
[2022-08-01 16:48] LABS: Appearance Pleural Fluid Cloudy (Clear); Color Pleural Fluid Yellow (Colorless); Pleural fluid source Pleural fluid
[2022-08-01 16:50] LABS: Lymphocytes Pleural Fluid 75 %; Macrophages Pleural Fluid 4 %; Mesothelial Cells Pleural Flui 6 %; Monocytes Pleural Fluid 15 %
[2022-08-01] MEDS: ENOXAPARIN 80 MG/0.8 ML SYRINGE 78 MG SUB-Q (19:45)
[2022-08-02] VITALS (12 sets, daily range): BP systolic 100–113; BP diastolic 56–85; PULSE 68–85; RESP 18–20; TEMP 35.8–36.8; O2SAT 97–99
--- NOTE | 2022-08-02 | ECHO_ITS ---
Patient Info Name: Neil Wharton Age: 87 years : 1935 Gender: Male Ht: 66 in Wt: 172 lbs BSA: 1.92 m2 HR: 80 bpm Technical Quality: Good Exam Date: 08/02/2022 9:56 AM Exam Location: [facility] Patient Status: Inpatient Admit Date: 08/01/2022 Staff Ordering Physician: Jose D Saravia Oyster Bed Worker: Alix Abel RDCS Attending Provider: Cady Santiago MD Referring Physician: Manjit PAIGE; Exam Type: CA echo dop color flow w con Study Info Indications - ATRIAL FIB Complete two-dimensional, color flow and Doppler transthoracic echocardiogram is performed with contrast to opacify the left ventricle and to improve the deliniation of the left ventricle endocardial borders. Contrast/Agitated Saline Contrast/Ag. Saline: Definity Amount: 2.00 ml Administered By: Alix Abel RDCS Existing IV Access: Yes Summary 1. Left ventricular systolic function is globally moderately reduced, estimated at 35-40%. 2. Definity contrast administered improved wall motion interpretation. 3. Left ventricular chamber dimension is mildly enlarged. 4. There is mildly increased left ventricular wall thickness. 5. The left ventricular diastolic function is normal. 6. Small apical thrombus noted with definity contrast. 7. E/e' 8 is minimally elevated. 8. Left atrial chamber dimension is moderately enlarged. 9. Right atrial chamber dimension is mildly enlarged. 10. There is severe aortic valve sclerosis. 11. There is moderate to severe aortic valve stenosis with a peak velocity of 269.06 cm/s, mean gradient of 19 mmHg, and aortic valve area of 1.13 cm2. Dimensionless index of 0.33 suggestive of less than severe aortic stenosis. 12. The mitral valve has mildly calcified annulus. 13. There is mild mitral valve regurgitation. 14. There is trace tricuspid valve regurgitation. 15. No pulmonary hypertension, estimated pulmonary arterial systolic pressure is 36 mmHg. 16. Small atheroma in anterior and posterior aortic root. 17. There is right sided small pericardial effusion. Left Ventricle Definity contrast administered improved wall motion interpretation. E/e' 8 is minimally elevated. Small apical thrombus noted with definity contrast. Left ventricular systolic function is globally moderately reduced, estimated at 35-40%. Left ventricular chamber dimension is mildly enlarged. There is mildly increased left ventricular wall thickness. The left ventricular diastolic function is normal. Right Ventricle Right ventricular chamber dimension is normal. Right ventricular systolic function is normal. Left Atria Left atrial chamber dimension is moderately enlarged. Right Atria Right atrial chamber dimension is mildly enlarged. Aortic Valve There is moderate to severe aortic valve stenosis with a peak velocity of 269.06 cm/s, mean gradient of 19 mmHg, and aortic valve area of 1.13 cm2. Dimensionless index of 0.33 suggestive of less than severe aortic stenosis. The aortic valve is trileaflet. There is severe aortic valve sclerosis. There is no aortic valve regurgitation. Pulmonic Valve There is no pulmonic regurgitation. Mitral Valve The mitral valve has mildly calcified annulus. There is no mitral valve stenosis. There is mild mitral valve regurgitation. Tricuspid Valve There is trace tricuspid valve regurgitation. No pulmonary hypertension, estimated pulmonary arterial systolic pressure is 36 mmHg. Pericardium/Pleural
[2022-08-02 06:11] LABS: Alanine Aminotransferase 20 U/L (6-50); Albumin Level 3.7 g/dL (3.5-5.1); Alkaline Phosphatase 49 U/L (38-126); Anion Gap 6 mmol/L (8-16); Aspartate Amino Transferase 29 U/L (17-59); Bilirubin,Total 0.9 mg/dL (0.2-1.3); Blood Urea Nitrogen 45 mg/dL (9-20); Calcium 8.1 mg/dL (8.4-10.2); Carbon Dioxide 34 mmol/L (22-30); Chloride 99 mmol/L (98-107); Estimated CRCL calculation 32 ml/min; Estimated Glomerular Filt Rate 52; Glucose 104 mg/dL (65-110); Magnesium 2.2 mg/dL (1.6-2.3); Potassium 4.4 mmol/L (3.4-5.0); Sodium 139 mmol/L (137-145)
[2022-08-02 06:20] LABS: Basophils Absolute Auto 0.1 K/mm3 (0.0-0.1); Basophils Percent Auto 0.7 % (0.2-1.2); Eosinophils Absolute Auto 0.1 K/mm3 (0-0.3); Hematocrit 32.6 % (42.0-52.0); Hemoglobin 10.3 g/dL (14.0-18.0); Immature Granulocyte Absolute 0.06 K/mm3 (0.00-0.031); Immature Granulocyte Percent A 0.9 % (0-0.5); Lymphocytes Absolute Auto 1.53 K/mm3 (0.9-3.2); Lymphocytes Percent Auto 21.8 % (18.3-44.2); Mean Corpuscular HGB Conc 31.6 g/dl (32-36); Mean Corpuscular Hemoglobin 35.2 pg (26-34); Mean Corpuscular Volume 111.3 fl (80-100); Monocytes Absolute Auto 0.7 K/mm3 (0.1-0.6); Monocytes Percent Auto 10.4 % (2.6-8.5); Neutrophils Absolute Auto 4.6 K/mm3 (1.3-6.7); Neutrophils Percent Auto 65.2 % (45.5-73.1); Nucleated Red Blood Cells Perc 0.3 % (0.0-0.2); Platelet Count Result 203 k/mm3 (150-375); Red Blood Count 2.93 M/mm3 (4.6-6.20); Red Cell Distribution Width 18.5 % (11.5-14.5)
[2022-08-02 08:15] LABS: Cholesterol 113 mg/dL (0-200); HDL Direct 47 mg/dL; Triglycerides 75 mg/dL (<150)
[2022-08-02 08:26] LABS: LDL Cholesterol Direct 46 mg/dL
[2022-08-02] MEDS: levoFLOXacin 750 MG TABLET PO (09:03)
[2022-08-02] MEDS: DOCUSATE SODIUM 100 MG CAPSULE PO (09:03)
[2022-08-02] MEDS: FUROSEMIDE INJ 40 MG/4 ML VIAL IV PUSH ×2 (09:04→17:48)
[2022-08-02] MEDS: ENOXAPARIN 80 MG/0.8 ML SYRINGE 78 MG SUB-Q (09:04)
[2022-08-02] MEDS: PERFLUTREN LIPID MICROSPHERES 1.5 ML VIAL DILUTED TO 10 ML TOTAL VOLUME IV PUSH (10:30)
--- NOTE | 2022-08-02 10:45 | P.PNIM_ITS ---
Progress Note: A&P Assessment and Plan (1) Atrial fibrillation: Code(s): I48.91 - Unspecified atrial fibrillation Status: Acute Assessment and Plan: * reported Afib RVR at [facility] * Currently in SR with frequent PACs * EKG SR with PAC * Full dose Lovenox at this time * Chads-vas score is a 7, Has-Bled score 2 * Does have a moderate risk for major bleeding * Consider anticoagulation * Not convinced this is true a-fib as there is no concrete evidence, will decrease Lovenox at this time (2) CHF (congestive heart failure): Code(s): I50.9 - Heart failure, unspecified Status: Inactive Assessment and Plan: * BNP elevated at 3520 * Trend urine output * Daily weights * Continue IV lasix BID for today, will stop tomorrow * Probably and acute on chronic diastolic heart failure in acute exacerbation * Chest xray noted bilateral pleural effusions, with left moderate, right small * Thoracentesis 100ml off * Supplemental oxygen weaned to room air * Deandre lam (3) Lumbar spondylosis: Code(s): M47.816 - Spondylosis without myelopathy or radiculopathy, lumbar region Status: Chronic Assessment and Plan: * MRI and CT of the spine all show spondylosis * Chronic back pain noted * [place] and Tylenol on board (4) Fall: Code(s): W19.XXXA - Unspecified fall, initial encounter Status: Acute Assessment and Plan: * patient reports falling 3 times last month * head CT did not show any acute abnormalities * 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 * MRI no acute intracranial findings * CTA of the head neck does not show any abnormalities * PT and OT * orthostatic blood pressure laying 116/57, sitting 116/59, standing 122/63 (5) Dementia: Code(s): F03.90 - Unspecified dementia, unspecified severity, without behavioral disturbance, psychotic disturbance, mood disturbance, and anxiety Status: Acute Assessment and Plan: * patient was on Namenda and duloxetine however took himself off * stable at this point * consider adding anything for behavioral disturbances (6) Pleural effusion: Code(s): J90 - Pleural effusion, not elsewhere classified Status: Acute Assessment and Plan: * moderate left and small right pleural effusion noted on CT * thoracentesis took off 100ml, gram stain did not show any organisms * probably contributed by the CHF * Shortness of breath has improved * Trend respiratory status with x-rays * IV diuretics x 2 more doses Time Spent With Patient Time with patient: Greater than 35 minutes Subjective Date/time seen: 08/02/22 10:45 Interval history: 08/02/22 1045 Patient was getting an echo when I went in to evaluate him. Patient stated that he feels about the same. He denies any chest pain however he does state that he has some shortness of breath. He was weaned to room air and is satting about 98%. He denies any nausea, vomiting, diarrhea, constipation, sweats, fevers, chills. Waiting for PT and OT to work with the patient. 08/01/22? 11:16 Patient is an 87-year-old male with a past medical history of hypertension, hype rlipidemia, diabetes, anemia who presented to the ED at [place] after a fall.? Upon arrival patient was noted to be in AFib RVR,? Which prompted trans
--- NOTE | 2022-08-02 10:45 | PM.IMPN ---
Progress Note: A&P Assessment and Plan (1) Atrial fibrillation: Code(s): I48.91 - Unspecified atrial fibrillation Status: Acute Assessment and Plan: reported Afib RVR at [facility] Currently in SR with frequent PACs EKG SR with PAC Full dose Lovenox at this time Chads-vas score is a 7, Has-Bled score 2 Does have a moderate risk for major bleeding Consider anticoagulation Not convinced this is true a-fib as there is no concrete evidence, will decrease Lovenox at this time (2) CHF (congestive heart failure): Code(s): I50.9 - Heart failure, unspecified Status: Inactive Assessment and Plan: BNP elevated at 3520 Trend urine output Daily weights Continue IV lasix BID for today, will stop tomorrow Probably and acute on chronic diastolic heart failure in acute exacerbation Chest xray noted bilateral pleural effusions, with left moderate, right small Thoracentesis 100ml off Supplemental oxygen weaned to room air Deandre hose (3) Lumbar spondylosis: Code(s): M47.816 - Spondylosis without myelopathy or radiculopathy, lumbar region Status: Chronic Assessment and Plan: MRI and CT of the spine all show spondylosis Chronic back pain noted [place] and Tylenol on board (4) Fall: Code(s): W19.XXXA - Unspecified fall, initial encounter Status: Acute Assessment and Plan: patient reports falling 3 times last month head CT did not show any acute abnormalities 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 MRI no acute intracranial findings CTA of the head neck does not show any abnormalities PT and OT orthostatic blood pressure laying 116/57, sitting 116/59, standing 122/63 (5) Dementia: Code(s): F03.90 - Unspecified dementia, unspecified severity, without behavioral disturbance, psychotic disturbance, mood disturbance, and anxiety Status: Acute Assessment and Plan: patient was on Namenda and duloxetine however took himself off stable at this point consider adding anything for behavioral disturbances (6) Pleural effusion: Code(s): J90 - Pleural effusion, not elsewhere classified Status: Acute Assessment and Plan: moderate left and small right pleural effusion noted on CT thoracentesis took off 100ml, gram stain did not show any organisms probably contributed by the CHF Shortness of breath has improved Trend respiratory status with x-rays IV diuretics x 2 more doses Time Spent With Patient Time with patient: Greater than 35 minutes Subjective Date/time seen: 08/02/22 10:45 Interval history: 08/02/22 1045 Patient was getting an echo when I went in to evaluate him. Patient stated that he feels about the same. He denies any chest pain however he does state that he has some shortness of breath. He was weaned to room air and is satting about 98%. He denies any nausea, vomiting, diarrhea, constipation, sweats, fevers, chills. Waiting for PT and OT to work with the patient. 08/01/22? 11:16 Patient is an 87-year-old male with a past medical history of hypertension, hyperlipidemia, diabetes, anemia who presented to the ED at [place] after a fall.? Upon arrival patient was noted to be in AFib RVR,? Which prompted transfer to [facility].? However prior to in the hospital patient went [place] the [place] to [place] the [place].? However when he was bending down to put the mays there he open his eyes and realize he fell backwards and he was lying on his back and hit the back of his head.? He denies any new recent chest pain, nausea, vomiting, diarrhea, constipation, sweats, fevers, chills, lightheadedness, dizziness, palpitations.? He did admit to having shortness of breath over the last couple days which has been worse.? He did state that he also had a cou
--- NOTE | 2022-08-02 13:16 | PC.NURSE ---
On 08/02/22, the student, [Leta Kent], provided care and completed [facility] documentation on this patient. I have reviewed the student's documentation and agree with the findings.
[2022-08-03] VITALS (16 sets, daily range): BP systolic 94–139; BP diastolic 54–78; PULSE 74–95; RESP 16–18; TEMP 36.3–36.9; O2SAT 94–97
[2022-08-03 06:24] LABS: Basophils Absolute Auto 0.1 K/mm3 (0.0-0.1); Basophils Percent Auto 1.1 % (0.2-1.2); Eosinophils Absolute Auto 0.1 K/mm3 (0-0.3); Eosinophils Percent Auto 1.3 % (0-4.4); Hematocrit 34.1 % (42.0-52.0); Hemoglobin 11.2 g/dL (14.0-18.0); Immature Granulocyte Absolute 0.05 K/mm3 (0.00-0.031); Immature Granulocyte Percent A 0.8 % (0-0.5); Lymphocytes Absolute Auto 1.58 K/mm3 (0.9-3.2); Mean Corpuscular HGB Conc 32.8 g/dl (32-36); Mean Corpuscular Hemoglobin 35.4 pg (26-34); Mean Corpuscular Volume 107.9 fl (80-100); Mean Platelet Volume 12.6 fl (7.4-10.4); Monocytes Absolute Auto 0.7 K/mm3 (0.1-0.6); Monocytes Percent Auto 10.8 % (2.6-8.5); Neutrophils Absolute Auto 3.9 K/mm3 (1.3-6.7); Nucleated Red Blood Cells Perc 0.3 % (0.0-0.2); Platelet Count Result 221 k/mm3 (150-375); Red Blood Count 3.16 M/mm3 (4.6-6.20); Red Cell Distribution Width 18.2 % (11.5-14.5); White Blood Count 6.3 K/mm3 (4.5-10.0)
[2022-08-03 06:27] LABS: Alanine Aminotransferase 19 U/L (6-50); Albumin Level 3.8 g/dL (3.5-5.1); Alkaline Phosphatase 49 U/L (38-126); Anion Gap 4 mmol/L (8-16); Aspartate Amino Transferase 26 U/L (17-59); Blood Urea Nitrogen 49 mg/dL (9-20); Calcium 8.2 mg/dL (8.4-10.2); Carbon Dioxide 35 mmol/L (22-30); Chloride 93 mmol/L (98-107); Estimated CRCL calculation 30 ml/min; Estimated Glomerular Filt Rate 48; Glucose 114 mg/dL (65-110); Magnesium 2.1 mg/dL (1.6-2.3); Potassium 3.6 mmol/L (3.4-5.0); Sodium 132 mmol/L (137-145)
[2022-08-03] MEDS: DOCUSATE SODIUM 100 MG CAPSULE PO ×2 (09:18→16:01)
[2022-08-03] MEDS: ENOXAPARIN 40 MG/0.4 ML SYRINGE SUB-Q (09:18)
--- NOTE | 2022-08-03 10:15 | P.PNIM_ITS ---
Progress Note: A&P Assessment and Plan (1) Chest pain: Code(s): R07.9 - Chest pain, unspecified Status: Acute Assessment and Plan: * Complaining of numbness, lower sternum * Chest xray, trop, and EKG ordered * Supplemental oxygen as indicated * Tele-monitor continued (2) Atrial fibrillation: Code(s): I48.91 - Unspecified atrial fibrillation Status: Acute Assessment and Plan: * reported Afib RVR at [facility] * Currently in SR with frequent PACs * EKG SR with PAC * Full dose Lovenox at this time * Chads-vas score is a 7, Has-Bled score 2 * Does have a moderate risk for major bleeding * Consider anticoagulation * Not convinced this is true a-fib as there is no concrete evidence, will decrease Lovenox at this time (3) CHF (congestive heart failure): Code(s): I50.9 - Heart failure, unspecified Status: Inactive Assessment and Plan: * BNP elevated at 3520 * Trend urine output * Daily weights * Continue IV lasix BID for today, will stop tomorrow * Probably and acute on chronic diastolic heart failure in acute exacerbation * Chest xray noted bilateral pleural effusions, with left moderate, right small * Thoracentesis 100ml off * Supplemental oxygen weaned to room air * Deandre lam (4) Lumbar spondylosis: Code(s): M47.816 - Spondylosis without myelopathy or radiculopathy, lumbar region Status: Chronic Assessment and Plan: * MRI and CT of the spine all show spondylosis * Chronic back pain noted * [place] and Tylenol on board (5) Fall: Code(s): W19.XXXA - Unspecified fall, initial encounter Status: Acute Assessment and Plan: * patient reports falling 3 times last month * head CT did not show any acute abnormalities * 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 * MRI no acute intracranial findings * CTA of the head neck does not show any abnormalities * PT and OT * orthostatic blood pressure laying 116/57, sitting 116/59, standing 122/63 (6) Dementia: Code(s): F03.90 - Unspecified dementia, unspecified severity, without behavioral disturbance, psychotic disturbance, mood disturbance, and anxiety Status: Acute Assessment and Plan: * patient was on Namenda and duloxetine however took himself off * stable at this point * consider adding anything for behavioral disturbances (7) Pleural effusion: Code(s): J90 - Pleural effusion, not elsewhere classified Status: Acute Assessment and Plan: * moderate left and small right pleural effusion noted on CT * thoracentesis took off 100ml, gram stain did not show any organisms * probably contributed by the CHF * Shortness of breath has improved * Trend respiratory status with x-rays * IV diuretics x 2 more doses Time Spent With Patient Time with patient: Greater than 35 minutes Subjective Date/time seen: 08/03/22 1015 Interval history: 08/03/22 101 Patient stated that he is doing okay. Patient still having some shortness of breath. He denies any nausea, vomiting, diarrhea, constipation, weakness or fatigue. He did state that he was living little numbness towards the bottom of the sternum. Telemetry is still stable. Will get EKG, chest x-ray, troponin. Creatini
--- NOTE | 2022-08-03 10:15 | PM.IMPN ---
Progress Note: A&P Assessment and Plan (1) Chest pain: Code(s): R07.9 - Chest pain, unspecified Status: Acute Assessment and Plan: Complaining of numbness, lower sternum Chest xray, trop, and EKG ordered Supplemental oxygen as indicated Tele-monitor continued (2) Atrial fibrillation: Code(s): I48.91 - Unspecified atrial fibrillation Status: Acute Assessment and Plan: reported Afib RVR at [facility] Currently in SR with frequent PACs EKG SR with PAC Full dose Lovenox at this time Chads-vas score is a 7, Has-Bled score 2 Does have a moderate risk for major bleeding Consider anticoagulation Not convinced this is true a-fib as there is no concrete evidence, will decrease Lovenox at this time (3) CHF (congestive heart failure): Code(s): I50.9 - Heart failure, unspecified Status: Inactive Assessment and Plan: BNP elevated at 3520 Trend urine output Daily weights Continue IV lasix BID for today, will stop tomorrow Probably and acute on chronic diastolic heart failure in acute exacerbation Chest xray noted bilateral pleural effusions, with left moderate, right small Thoracentesis 100ml off Supplemental oxygen weaned to room air Deandre hose (4) Lumbar spondylosis: Code(s): M47.816 - Spondylosis without myelopathy or radiculopathy, lumbar region Status: Chronic Assessment and Plan: MRI and CT of the spine all show spondylosis Chronic back pain noted [place] and Tylenol on board (5) Fall: Code(s): W19.XXXA - Unspecified fall, initial encounter Status: Acute Assessment and Plan: patient reports falling 3 times last month head CT did not show any acute abnormalities 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 MRI no acute intracranial findings CTA of the head neck does not show any abnormalities PT and OT orthostatic blood pressure laying 116/57, sitting 116/59, standing 122/63 (6) Dementia: Code(s): F03.90 - Unspecified dementia, unspecified severity, without behavioral disturbance, psychotic disturbance, mood disturbance, and anxiety Status: Acute Assessment and Plan: patient was on Namenda and duloxetine however took himself off stable at this point consider adding anything for behavioral disturbances (7) Pleural effusion: Code(s): J90 - Pleural effusion, not elsewhere classified Status: Acute Assessment and Plan: moderate left and small right pleural effusion noted on CT thoracentesis took off 100ml, gram stain did not show any organisms probably contributed by the CHF Shortness of breath has improved Trend respiratory status with x-rays IV diuretics x 2 more doses Time Spent With Patient Time with patient: Greater than 35 minutes Subjective Date/time seen: 08/03/22 1015 Interval history: 08/03/22 1015 Patient stated that he is doing okay. Patient still having some shortness of breath. He denies any nausea, vomiting, diarrhea, constipation, weakness or fatigue. He did state that he was living little numbness towards the bottom of the sternum. Telemetry is still stable. Will get EKG, chest x-ray, troponin. Creatinine did bump to 1.40. Could be related to furosemide. Will continue to trend. Patient also stated he is having some dizziness when he sits up I told me might have to take it slow as everything looks to be normal at this time. 08/02/22 1045 Patient was getting an echo when I went in to evaluate him. Patient stated that he feels about the same. He denies any chest pain however he does state that he has some shortness of breath. He was weaned to room air and is satting about 98%. He denies any nausea, vomiting, diarrhea, constipation, sweats, fevers, chills. Waiting for PT and OT t
--- NOTE | 2022-08-03 11:54 | ECG_ITS ---
Measurements Intervals [place] Rate: 77 P: 52 LA: 171 QRS: -25 QRSD: 112 T: 119 QT: 378 QTc: 430 Interpretive Statements SINUS RHYTHM WITH OCCASIONAL VENTRICULAR PREMATURE COMPLEXES LEFT VENTRICULAR HYPERTROPHY AND ST-T CHANGE ABNORMAL ECG COMPARED TO ECG 08/01/2022 12:39:03 NO SIGNIFICANT CHANGES Electronically Signed On 08-04-2022 13:31:20 [employer] by Hammad Peña M.D.
[2022-08-03 14:12] LABS: Troponin I 0.613 ng/mL (0.000-0.034)
[2022-08-03] MEDS: ASPIRIN 81 MG CHEWABLE TABLET 324 MG PO (14:50)
--- NOTE | 2022-08-03 15:28 | PM.CNCAR ---
Assessment and Plan Assessment and plan (1) Chest pain: Code(s): R07.9 - Chest pain, unspecified Status: Acute Assessment and Plan: Atypical and transient. EKG is unremarkable. Could be due to ACS, pneumonia, heartburn, musculoskeletal. Continue aspirin daily. (2) Systolic heart failure: Code(s): I50.20 - Unspecified systolic (congestive) heart failure Status: Acute Assessment and Plan: New onset. 08/02/22 Echo: EF 35-40%, mild LVE, mod LAE, mild UMA, mod-severe (JENNIFER 1.13 cm2), mild MR. He was diuresed with Lasix 40 mg IV BID and this has been discontinued. He appears euvolemic now. May need low dose Lasix 20 mg PO daily to prevent recurrence. Start Toprol XL 12.5 mg daily, Losartan 12.5 mg daily. (3) Aortic stenosis: Code(s): I35.0 - Nonrheumatic aortic (valve) stenosis Status: Acute Assessment and Plan: Mod-severe. Does not need replacement at this time. (4) Elevated troponin: Code(s): R77.8 - Other specified abnormalities of plasma proteins Status: Acute Assessment and Plan: Trend troponin until peaks. This could be due to pneumonia, CHF, diuresis. If troponin rises significantly then would prefer left heart cath on Friday vs nuclear stress test. (5) Pneumonia: Code(s): J18.9 - Pneumonia, unspecified organism Status: Acute Assessment and Plan: On antibiotics as per hospitalist. History of Present Illness History of Present Illness Consult date/time: 08/03/22 15:28 Reason For Visit: Fall, New Onset AFib,Pleural Effusion Narrative: 87 yr old man presents to [facility] after a fall. He has no known cardiac problems prior to this hospitalization. He has chronic anemia. 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 He has fallen 3 times this month due to balance issues. He does not think he passed out or even felt dizzy. He is limited at walking 100 feet due to [place] that has progressively gotten worse over past 6 months. He reported mid chest dull pain this morning lasting 15 seconds. Denies orthopnea, PND, edema. Review of Systems Review of Systems: All systems reviewed & are unremarkable except as noted in HPI and below Constitutional: Constitutional: Reports as per HPI, Denies chills and Denies fever(s) Cardiovascular: Cardiovascular: Reports as per HPI, Reports chest pain, Denies irregular heart rhythm, Denies leg edema and Denies lightheadedness Respiratory: Respiratory: Reports as per HPI and Reports dyspnea on exertion Gastrointestinal: Gastrointestinal: Reports as per HPI and Denies abdominal pain Genitourinary: Genitourinary: Reports as per HPI and Denies dysuria Musculoskeletal: Musculoskeletal: Reports as per HPI Neurologic: Reports as per HPI, Denies dizziness and Denies syncope [facility] Past Medical History Medical History Arthritis Atrial fibrillation Benign essential HTN Community acquired pneumonia (~09/13/19) COVID-19 Dementia Diabetes mellitus Fall Hypertension Lumbar spondylosis Type 2 diabetes mellitus without complications Vitamin B 12 deficiency Vitamin D deficiency, unspecified Surgical History Surgical History History of back surgery History of knee replacement Hx of cholecystectomy Hx of tonsillectomy S/P cataract surgery Family History Family History Mother Family history of coronary artery disease Father , father of metastatic lung cancer Family history of coronary artery disease Other Family history of malignant neoplasm Social History Social History (Updated 08/01/22 @ 11:40 by GUADALUPE Giles) Social History: Patient lives with his in [place]. He has one child, and 3 grandchildren, however, o
[2022-08-03 15:55] LABS: Troponin I 0.603 ng/mL (0.000-0.034)
[2022-08-04] VITALS (13 sets, daily range): BP systolic 99–123; BP diastolic 52–71; PULSE 65–78; RESP 16–18; TEMP 36–36.9; O2SAT 94–99
[2022-08-04 06:17] LABS: Basophils Absolute Auto 0.1 K/mm3 (0.0-0.1); Basophils Percent Auto 1.2 % (0.2-1.2); Eosinophils Absolute Auto 0.1 K/mm3 (0-0.3); Eosinophils Percent Auto 2.3 % (0-4.4); Hematocrit 34.1 % (42.0-52.0); Hemoglobin 11.4 g/dL (14.0-18.0); Immature Granulocyte Absolute 0.05 K/mm3 (0.00-0.031); Immature Granulocyte Percent A 0.9 % (0-0.5); Lymphocytes Absolute Auto 1.39 K/mm3 (0.9-3.2); Lymphocytes Percent Auto 24.3 % (18.3-44.2); Mean Corpuscular HGB Conc 33.4 g/dl (32-36); Mean Corpuscular Volume 104.6 fl (80-100); Mean Platelet Volume 11.3 fl (7.4-10.4); Monocytes Absolute Auto 0.7 K/mm3 (0.1-0.6); Monocytes Percent Auto 12.1 % (2.6-8.5); Neutrophils Absolute Auto 3.4 K/mm3 (1.3-6.7); Neutrophils Percent Auto 59.2 % (45.5-73.1); Nucleated Red Blood Cells Perc 0.3 % (0.0-0.2); Platelet Count Result 209 k/mm3 (150-375); Red Blood Count 3.26 M/mm3 (4.6-6.20); Red Cell Distribution Width 18.2 % (11.5-14.5); White Blood Count 5.7 K/mm3 (4.5-10.0)
[2022-08-04 06:34] LABS: Potassium 3.8 mmol/L (3.4-5.0)
[2022-08-04 06:52] LABS: Alanine Aminotransferase 18 U/L (6-50); Alkaline Phosphatase 47 U/L (38-126); Anion Gap 5 mmol/L (8-16); Aspartate Amino Transferase 27 U/L (17-59); Blood Urea Nitrogen 42 mg/dL (9-20); Calcium 8.2 mg/dL (8.4-10.2); Carbon Dioxide 30 mmol/L (22-30); Chloride 97 mmol/L (98-107); Estimated CRCL calculation 34 ml/min; Estimated Glomerular Filt Rate 57; Glucose 113 mg/dL (65-110); Magnesium 2.3 mg/dL (1.6-2.3); Sodium 132 mmol/L (137-145); Troponin I 0.507 ng/mL (0.000-0.034)
--- NOTE | 2022-08-04 08:09 | PM.PNCARD ---
Progress Note: A&P Assessment and Plan (1) Chest pain: Code(s): R07.9 - Chest pain, unspecified Status: Acute Assessment and Plan: Resolved. Atypical and transient. EKG is unremarkable. Could be due to ACS, pneumonia, heartburn, musculoskeletal. Continue aspirin daily. (2) Systolic heart failure: Code(s): I50.20 - Unspecified systolic (congestive) heart failure Status: Acute Assessment and Plan: New onset. 08/02/22 Echo: EF 35-40%, mild LVE, mod LAE, mild UMA, mod-severe (JENNIFER 1.13 cm2), mild MR. He was diuresed with Lasix 40 mg IV BID and this has been discontinued. Start Toprol XL 12.5 mg daily, Losartan 12.5 mg daily, Lasix 20 mg PO daily. (3) Aortic stenosis: Code(s): I35.0 - Nonrheumatic aortic (valve) stenosis Status: Acute Assessment and Plan: Mod-severe. Does not need replacement at this time. (4) Elevated troponin: Code(s): R77.8 - Other specified abnormalities of plasma proteins Status: Acute Assessment and Plan: Troponin peaked at 0.61 and trended down. This could be due to pneumonia, CHF, diuresis and less likely ACS. Obtain lexiscan myoview stress test is AM. (5) Pneumonia: Code(s): J18.9 - Pneumonia, unspecified organism Status: Acute Assessment and Plan: On antibiotics as per hospitalist. 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 If nuclear stress test is OK, will start Warfarin tomorrow, and may d/c home tomorrow from cardiology standpoint. Subjective Date/time seen: 08/04/22 08:09 Interval history: Denies chest pain or sob. Has some cough. Exam Const: General: cooperative, healthy appearing and comfortable Orientation/consciousness: oriented to person, oriented to place and oriented to time Resp: Auscultation: clear to auscultation bilaterally, no crackles, no rales, no rhonchi and no wheezes Cardio: Jugular venous distension: no JVD Rate: regular rate Rhythm: regular rhythm Heart sounds: Murmur heart sound present (II/ systolic mumur RICS) Peripheral pulses: dorsalis pedis present Neuro: General: oriented to person, oriented to place and oriented to time Extrem: Right lower extremity: no edema Left lower extremity: no edema Objective Data Vital Signs Vital Signs: Vital Signs - 24 hr 08/03/22 09:58 08/03/22 10:01 08/03/22 10:03 Temperature Pulse Rate 86 92 93 Respiratory Rate Blood Pressure 109/70 118/55 L 118/57 L Pulse Oximetry Oxygen Delivery 08/03/22 09:15 08/03/22 12:00 08/03/22 14:01 Temperature 98.4 F Pulse Rate 78 79 Respiratory Rate 18 Blood Pressure 122/65 Pulse Oximetry 95 Oxygen Delivery Room Air 08/03/22 16:00 08/03/22 19:12 08/03/22 19:14 Temperature 97.3 F L 97.3 F L Pulse Rate 79 82 82 Respiratory Rate 18 18 Blood Pressure 139/62 139/62 Pulse Oximetry 97 97 Oxygen Delivery 08/03/22 19:15 08/03/22 19:16 08/03/22 20:00 Temperature Pulse Rate 82 Respiratory Rate Blood Pressure 118/64 117/54 L Pulse Oximetry Oxygen Delivery 08/04/22 00:00 08/04/22 04:00 08/04/22 04:24 Temperature 96.8 F L Pulse Rate 78 68 77 Respiratory Rate 16 Blood Pressure 123/71 Pulse Oximetry 94 Oxygen Delivery Intake/Output Intake/Output: Intake & Output 08/01/22 08/02/22 08/03/22 08/04/22 23:59 23:59 23:59 23:59 Intake Total 590 1250 1610 200 Output Total 850 2650 1800 300 Balance -260 -1400 -190 -100 Meds/Results Medications: Active Medications Generic Name Dose Route Start Last Admin Trade Name Freq PRN Reason Stop Dose Admin Acetaminophen 1,000 mg 08/01/22 11:04 Acetaminophen 500 Mg Tablet PO Q6H PRN Mild Pain (1-3) or Fever Hydrocodone Bitart/Acetaminophen 1 tab 08/01/22 11:04 Hydrocodone/Acetaminophen (*Crx) 5-325 Mg Tab
[2022-08-04] MEDS: DOCUSATE SODIUM 100 MG CAPSULE PO ×2 (09:36→17:17)
[2022-08-04] MEDS: ENOXAPARIN 80 MG/0.8 ML SYRINGE 78 MG SUB-Q (09:36)
[2022-08-04] MEDS: ASPIRIN 81 MG ENTERIC TABLET PO (09:36)
[2022-08-04] MEDS: METOPROLOL SUCCINATE EXT REL 12.5 MG TABCR PO (09:37)
[2022-08-04] MEDS: LOSARTAN POTASSIUM 12.5 MG TABLET PO (09:37)
[2022-08-04] MEDS: FUROSEMIDE 20 MG TABLET PO (09:38)
[2022-08-04 10:14] LABS: INR 1.1; Partial Thromboplastin Time 38.8 SECONDS (22.3-36.8); Prothrombin Time 13.7 Seconds (11.1-14.7)
--- NOTE | 2022-08-04 10:45 | P.PNIM_ITS ---
Progress Note: A&P Assessment and Plan (1) Chest pain: Code(s): R07.9 - Chest pain, unspecified Status: Acute Assessment and Plan: * Complaining of numbness, lower sternum * Chest xray, trop, and EKG ordered * Supplemental oxygen as indicated * Tele-monitor continued (2) Atrial fibrillation: Code(s): I48.91 - Unspecified atrial fibrillation Status: Acute Assessment and Plan: * reported Afib RVR at [facility] * Currently in SR with frequent PACs * EKG SR with PAC * Full dose Lovenox at this time * Chads-vas score is a 7, Has-Bled score 2 * Does have a moderate risk for major bleeding * Consider anticoagulation * Not convinced this is true a-fib as there is no concrete evidence, will decrease Lovenox at this time (3) CHF (congestive heart failure): Code(s): I50.9 - Heart failure, unspecified Status: Inactive Assessment and Plan: * BNP elevated at 3520 * Trend urine output * Daily weights * Continue IV lasix BID for today, will stop tomorrow * As per echo patient has a 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 * Chest xray noted bilateral pleural effusions, with left moderate, right small * Thoracentesis 100ml off * Supplemental oxygen weaned to room air * Deandre lam (4) Lumbar spondylosis: Code(s): M47.816 - Spondylosis without myelopathy or radiculopathy, lumbar region Status: Chronic Assessment and Plan: * MRI and CT of the spine all show spondylosis * Chronic back pain noted * [place] and Tylenol on board (5) Fall: Code(s): W19.XXXA - Unspecified fall, initial encounter Status: Acute Assessment and Plan: * patient reports falling 3 times last month * head CT did not show any acute abnormalities * 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 * MRI no acute intracranial findings * CTA of the head neck does not show any abnormalities * PT and OT * orthostatic blood pressure laying 116/57, sitting 116/59, standing 122/63 (6) Dementia: Code(s): F03.90 - Unspecified dementia, unspecified severity, without behavioral disturbance, psychotic disturbance, mood disturbance, and anxiety Status: Acute Assessment and Plan: * patient was on Namenda and duloxetine however took himself off * stable at this point * consider adding anything for behavioral disturbances (7) Pleural effusion: Code(s): J90 - Pleural effusion, not elsewhere classified Status: Acute Assessment and Plan: * moderate left and small right pleural effusion noted on CT * thoracentesis took off 100ml, gram stain did not show any organisms * probably contributed by the CHF * Shortness of breath has improved * Trend respiratory status with x-rays * IV diuretics x 2 more doses (8) Aortic stenosis: Code(s): I35.0 - Nonrheumatic aortic (valve) stenosis Status: Acute Assessment and Plan: * Echo indicated aortic stenosis * Cardiology consulted * Probably the reason for the dizziness (9) Apical mural thrombus: Code(s): I51.3 - Intracardiac thrombosis, not elsewhere classified Status: Acute Assessment and Plan: * Started on war
--- NOTE | 2022-08-04 10:45 | PM.IMPN ---
Progress Note: A&P Assessment and Plan (1) Chest pain: Code(s): R07.9 - Chest pain, unspecified Status: Acute Assessment and Plan: Complaining of numbness, lower sternum Chest xray, trop, and EKG ordered Supplemental oxygen as indicated Tele-monitor continued (2) Atrial fibrillation: Code(s): I48.91 - Unspecified atrial fibrillation Status: Acute Assessment and Plan: reported Afib RVR at [facility] Currently in SR with frequent PACs EKG SR with PAC Full dose Lovenox at this time Chads-vas score is a 7, Has-Bled score 2 Does have a moderate risk for major bleeding Consider anticoagulation Not convinced this is true a-fib as there is no concrete evidence, will decrease Lovenox at this time (3) CHF (congestive heart failure): Code(s): I50.9 - Heart failure, unspecified Status: Inactive Assessment and Plan: BNP elevated at 3520 Trend urine output Daily weights Continue IV lasix BID for today, will stop tomorrow As per echo patient has a 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 Chest xray noted bilateral pleural effusions, with left moderate, right small Thoracentesis 100ml off Supplemental oxygen weaned to room air Deandre hose (4) Lumbar spondylosis: Code(s): M47.816 - Spondylosis without myelopathy or radiculopathy, lumbar region Status: Chronic Assessment and Plan: MRI and CT of the spine all show spondylosis Chronic back pain noted [place] and Tylenol on board (5) Fall: Code(s): W19.XXXA - Unspecified fall, initial encounter Status: Acute Assessment and Plan: patient reports falling 3 times last month head CT did not show any acute abnormalities 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 MRI no acute intracranial findings CTA of the head neck does not show any abnormalities PT and OT orthostatic blood pressure laying 116/57, sitting 116/59, standing 122/63 (6) Dementia: Code(s): F03.90 - Unspecified dementia, unspecified severity, without behavioral disturbance, psychotic disturbance, mood disturbance, and anxiety Status: Acute Assessment and Plan: patient was on Namenda and duloxetine however took himself off stable at this point consider adding anything for behavioral disturbances (7) Pleural effusion: Code(s): J90 - Pleural effusion, not elsewhere classified Status: Acute Assessment and Plan: moderate left and small right pleural effusion noted on CT thoracentesis took off 100ml, gram stain did not show any organisms probably contributed by the CHF Shortness of breath has improved Trend respiratory status with x-rays IV diuretics x 2 more doses (8) Aortic stenosis: Code(s): I35.0 - Nonrheumatic aortic (valve) stenosis Status: Acute Assessment and Plan: Echo indicated aortic stenosis Cardiology consulted Probably the reason for the dizziness (9) Apical mural thrombus: Code(s): I51.3 - Intracardiac thrombosis, not elsewhere classified Status: Acute Assessment and Plan: Started on warfarin Seen on the echo Awaiting therapeutic values (10) Type 2 SD (myocardial infarction): Code(s): I21.A1 - Myocardial infarction type 2 Status: Acute Assessment and Plan: Secondary to demand ischemia from aortic stenosis Troponin did come back at 0.613 Consulted cardiology EKG showed SR Continue to trend trops Echo showed EF of 35-40% with severe aortic sclerosis and stenosis Aspirin given Time Spent With Patient Time with patient: Greater than 35 minutes Subjective Date/time seen: 08/04/22 1045 Interval history: 08/04/22 104 Patient was feeling b
--- NOTE | 2022-08-04 15:48 | PCPTNOTE ---
Attempted to see patient for Physical Therapy session; pt declined at this time stating he was too fatigued. Will continue per POC tomorrow.
[2022-08-04] MEDS: WARFARIN (*PBKC) 10 MG TABLET PO (17:17)
[2022-08-05] VITALS (17 sets, daily range): BP systolic 94–122; BP diastolic 56–66; PULSE 56–77; RESP 16–18; TEMP 36.4–36.8; O2SAT 95–100
[2022-08-05 07:42] LABS: Basophils Absolute Auto 0.1 K/mm3 (0.0-0.1); Basophils Percent Auto 1.1 % (0.2-1.2); Eosinophils Absolute Auto 0.3 K/mm3 (0-0.3); Hematocrit 35.9 % (42.0-52.0); Hemoglobin 11.8 g/dL (14.0-18.0); Immature Granulocyte Absolute 0.07 K/mm3 (0.00-0.031); Immature Granulocyte Percent A 1.1 % (0-0.5); Lymphocytes Percent Auto 29.1 % (18.3-44.2); Mean Corpuscular HGB Conc 32.9 g/dl (32-36); Mean Corpuscular Hemoglobin 34.6 pg (26-34); Mean Corpuscular Volume 105.3 fl (80-100); Mean Platelet Volume 10.9 fl (7.4-10.4); Monocytes Absolute Auto 0.6 K/mm3 (0.1-0.6); Monocytes Percent Auto 9.1 % (2.6-8.5); Neutrophils Absolute Auto 3.4 K/mm3 (1.3-6.7); Neutrophils Percent Auto 54.6 % (45.5-73.1); Nucleated Red Blood Cells Perc 0.3 % (0.0-0.2); Platelet Count Result 223 k/mm3 (150-375); Red Blood Count 3.41 M/mm3 (4.6-6.20); Red Cell Distribution Width 18.1 % (11.5-14.5); White Blood Count 6.2 K/mm3 (4.5-10.0)
--- NOTE | 2022-08-05 07:48 | PM.PNCARD ---
Progress Note: A&P Assessment and Plan (1) Chest pain: Code(s): R07.9 - Chest pain, unspecified Status: Acute Assessment and Plan: Resolved. Atypical and transient. EKG is unremarkable. Could be due to ACS, pneumonia, heartburn, musculoskeletal. Continue aspirin daily. Obtain lexiscan myoview stress test this AM. (2) Systolic heart failure: Code(s): I50.20 - Unspecified systolic (congestive) heart failure Status: Acute Assessment and Plan: New onset. 08/02/22 Echo: EF 35-40%, mild LVE, mod LAE, mild UMA, mod-severe (JENNIFER 1.13 cm2), mild MR. He was diuresed with Lasix 40 mg IV BID and this has been discontinued. Started Toprol XL 12.5 mg daily, Losartan 12.5 mg daily, Lasix 20 mg PO daily. (3) Aortic stenosis: Code(s): I35.0 - Nonrheumatic aortic (valve) stenosis Status: Acute Assessment and Plan: Mod-severe. Does not need replacement at this time. (4) Elevated troponin: Code(s): R77.8 - Other specified abnormalities of plasma proteins Status: Acute Assessment and Plan: Troponin peaked at 0.61 and trended down. This could be due to pneumonia, CHF, diuresis and less likely ACS. (5) Pneumonia: Code(s): J18.9 - Pneumonia, unspecified organism Status: Acute Assessment and Plan: On antibiotics as per hospitalist. 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 If nuclear stress test is OK, will start Warfarin and may d/c home tomorrow from cardiology standpoint. Subjective Date/time seen: 08/05/22 07:48 Interval history: Denies chest pain or sob. Has some dry cough. Exam Const: General: cooperative, healthy appearing and comfortable Orientation/consciousness: oriented to person, oriented to place and oriented to time Resp: Auscultation: clear to auscultation bilaterally, no crackles, no rales, no rhonchi and no wheezes Cardio: Jugular venous distension: no JVD Rate: regular rate Rhythm: regular rhythm Heart sounds: Murmur heart sound present (II/ systolic mumur RICS) Peripheral pulses: dorsalis pedis present Neuro: General: oriented to person, oriented to place and oriented to time Extrem: Right lower extremity: no edema Left lower extremity: no edema Objective Data Vital Signs Vital Signs: Vital Signs - 24 hr 08/04/22 09:37 08/04/22 08:00 08/04/22 08:00 Temperature Pulse Rate 77 76 77 Respiratory Rate 16 Blood Pressure Pulse Oximetry 94 Oxygen Delivery Room Air 08/04/22 12:00 08/04/22 14:00 08/04/22 16:00 Temperature 96.8 F L Pulse Rate 75 78 67 Respiratory Rate 16 Blood Pressure 99/60 L Pulse Oximetry 99 Oxygen Delivery 08/04/22 20:45 08/04/22 21:08 08/04/22 21:11 Temperature 98.0 F 98.4 F 97.6 F Pulse Rate 65 68 74 Respiratory Rate 17 18 18 Blood Pressure 108/58 L 105/63 106/56 L Pulse Oximetry 98 98 97 Oxygen Delivery 08/04/22 21:14 08/04/22 20:00 08/05/22 00:00 Temperature 97.6 F Pulse Rate 78 67 64 Respiratory Rate 18 Blood Pressure 106/52 L Pulse Oximetry 98 Oxygen Delivery 08/05/22 05:27 08/05/22 04:00 Temperature 97.7 F Pulse Rate 63 56 L Respiratory Rate 17 Blood Pressure 115/57 L Pulse Oximetry 98 Oxygen Delivery Intake/Output Intake/Output: Intake & Output 08/02/22 08/03/22 08/04/22 08/05/22 23:59 23:59 23:59 23:59 Intake Total 1250 1610 1380 250 Output Total 2650 1800 700 800 Balance -1400 -190 680 -550 Meds/Results Medications: Active Medications Generic Name Dose Route Start Last Admin Trade Name Freq PRN Reason Stop Dose Admin Acetaminophen 1,000 mg 08/01/22 11:04 Acetaminophen 500 Mg Tablet PO Q6H PRN Mild Pain (1-3) or Fever Hydrocodone Bitart/Acetaminophen 1 tab 08/01/22 11:04 Hydrocodone/Acetaminophen (*Crx) 5-325 Mg Tablet PO
--- NOTE | 2022-08-05 08:00 | EST_ITS ---
Patient Info Name: Neil Wharton Age: 87 years : 1935 Gender: Male Ht: 66 in Wt: 172 lbs BSA: 1.92 m2 HR: 65 bpm BP: 140 / 72 mmHg Heart Rhythm: Sinus Rhythm Exam Date: 08/05/2022 8:39 AM Exam Location: [facility] Stress Patient Status: Inpatient Admit Date: 08/03/2022 Staff Ordering Physician: Jony Mix DO Attending Provider: Cady Santiago MD Exercise Technologist: Charity Espino CT Exam Type: CA stress vashti w NM Study Info Indications I50.20 - Unspecified systolic (congestive) heart failure A regadenoson stress test was performed. Summary 1. 1. Negative lexiscan stress test for ischemic ST changes by ECG criteria. 2. 2. Stable hemodynamics throughout the test. 3. 3. Nuclear scan to follow and will be reported separately. Please correlate with it. 4. 4. Patient informed of the above results. Protocol: Lexiscan Stress ECG Details Stage: REST Duration (min): 1 min : 16 sec HR (bpm): 63 SBP (mmHg): 140 DBP (mmHg): 72 Stage: REST Duration (min): 5 min : 12 sec HR (bpm): 62 SBP (mmHg): 140 DBP (mmHg): 72 Stage: STAGE 1 Duration (min): 1 min : 0 sec HR (bpm): 70 SBP (mmHg): 135 DBP (mmHg): 75 Stage: RECOVERY Duration (min): 1 min : 0 sec HR (bpm): 82 SBP (mmHg): 135 DBP (mmHg): 75 Stage: RECOVERY Duration (min): 2 min : 0 sec HR (bpm): 76 SBP (mmHg): 135 DBP (mmHg): 75 Stage: RECOVERY Duration (min): 3 min : 0 sec HR (bpm): 73 SBP (mmHg): 132 DBP (mmHg): 72 Stage: RECOVERY Duration (min): 3 min : 22 sec HR (bpm): 73 SBP (mmHg): 132 DBP (mmHg): 72 Rest HR: 62 bpm Peak HR: 82 bpm Rest Sys BP: 140 mmHg Peak Sys BP: 135 mmHg Max Pred HR: 132 bpm % Max Pred HR: 62 % Target HR: 112 bpm Max RPP: 11,070 bpm*mmHg Termination Reason: Completed protocol Cardiac Symptoms: Shortness of breath, Dizziness Total Time: 1 min : 0 sec Rest Leiberman BP: 72 mmHg Peak Lieberman BP: 75 mmHg Total Dose: 0.4 mg Resting ECG Sinus rhythm, borderline ST-T wave in diffuse leads. Stress ECG No ST changes. Arrhythmias None. Report Signatures
[2022-08-05 08:20] LABS: INR 1.1; Prothrombin Time 13.8 Seconds (11.1-14.7)
[2022-08-05 08:33] LABS: Partial Thromboplastin Time 38.1 SECONDS (22.3-36.8)
[2022-08-05 08:38] LABS: Platelet Estimate Adequate (Adequate); Schistocytes None Seen (NORMAL)
[2022-08-05 08:39] LABS: Hypochromasia 1+ (NORMAL); Macrocytosis 1+ (NORMAL); Ovalocytes 1+ (NORMAL)
[2022-08-05] MEDS: ASPIRIN 81 MG ENTERIC TABLET PO (09:43)
[2022-08-05] MEDS: AZITHROMYCIN 250 MG TABLET 500 MG PO (09:43)
[2022-08-05] MEDS: LOSARTAN POTASSIUM 12.5 MG TABLET PO (09:43)
[2022-08-05] MEDS: FUROSEMIDE 20 MG TABLET PO (09:43)
[2022-08-05] MEDS: ACETAMINOPHEN 500 MG TABLET 1000 MG PO ×2 (09:44→20:59)
[2022-08-05] MEDS: METOPROLOL SUCCINATE EXT REL 12.5 MG TABCR PO (09:44)
[2022-08-05] MEDS: DOCUSATE SODIUM 100 MG CAPSULE PO ×2 (09:45→17:03)
[2022-08-05] MEDS: ENOXAPARIN 80 MG/0.8 ML SYRINGE 78 MG SUB-Q (09:45)
--- NOTE | 2022-08-05 10:00 | P.PNIM_ITS ---
Progress Note: A&P Assessment and Plan (1) Type 2 AR (myocardial infarction): Code(s): I21.A1 - Myocardial infarction type 2 Status: Acute Assessment and Plan: * Secondary to demand ischemia from aortic stenosis * Troponin did come back at 0.613 * Consulted cardiology * EKG showed SR * Continue to trend trops * Echo showed EF of 35-40% with severe aortic sclerosis and stenosis * Aspirin given * Stress test showed an EF of 37% with a small to moderate infarct at the apical an apical lateral segments (2) Atrial fibrillation: Code(s): I48.91 - Unspecified atrial fibrillation Status: Acute Assessment and Plan: * reported Afib RVR at [facility] * Currently in SR with frequent PACs * EKG SR with PAC * Full dose Lovenox at this time, started on warfarin * Chads-vas score is a 7, Has-Bled score 2 * Does have a moderate risk for major bleeding * Consider anticoagulation * Not convinced this is true a-fib as there is no concrete evidence, will decrease Lovenox at this time (3) CHF (congestive heart failure): Code(s): I50.9 - Heart failure, unspecified Status: Inactive Assessment and Plan: * BNP elevated at 3520 * Trend urine output * Daily weights * Continue furosemide 20mg PO Daily * As per echo patient has a 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 * Chest xray noted bilateral pleural effusions, with left moderate, right small * Thoracentesis 100ml off * Supplemental oxygen weaned to room air * Deandre lam (4) Lumbar spondylosis: Code(s): M47.816 - Spondylosis without myelopathy or radiculopathy, lumbar region Status: Chronic Assessment and Plan: * MRI and CT of the spine all show spondylosis * Chronic back pain noted * [place] and Tylenol on board (5) Fall: Code(s): W19.XXXA - Unspecified fall, initial encounter Status: Acute Assessment and Plan: * patient reports falling 3 times last month * head CT did not show any acute abnormalities * 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 * MRI no acute intracranial findings * CTA of the head neck does not show any abnormalities * PT and OT * orthostatic blood pressure laying 116/57, sitting 116/59, standing 122/63 (6) Dementia: Code(s): F03.90 - Unspecified dementia, unspecified severity, without behavioral disturbance, psychotic disturbance, mood disturbance, and anxiety Status: Acute Assessment and Plan: * patient was on Namenda and duloxetine however took himself off * stable at this point * consider adding anything for behavioral disturbances (7) Pleural effusion: Code(s): J90 - Pleural effusion, not elsewhere classified Status: Acute Assessment and Plan: * moderate left and small right pleural effusion noted on CT * thoracentesis took off 100ml, gram stain did not show any organisms * probably contributed by the CHF * Shortness of breath has improved * Trend respiratory status with x-rays (8) Aortic stenosis: Code(s): I35.0 - Nonrheumatic aortic (valve) stenosis Status: Acute Assessment and Plan: * Echo indicated aortic stenosis * Cardiology consulted * Probably the reason for the dizziness
--- NOTE | 2022-08-05 10:00 | PM.IMPN ---
Progress Note: A&P Assessment and Plan (1) Type 2 OH (myocardial infarction): Code(s): I21.A1 - Myocardial infarction type 2 Status: Acute Assessment and Plan: Secondary to demand ischemia from aortic stenosis Troponin did come back at 0.613 Consulted cardiology EKG showed SR Continue to trend trops Echo showed EF of 35-40% with severe aortic sclerosis and stenosis Aspirin given Stress test showed an EF of 37% with a small to moderate infarct at the apical an apical lateral segments (2) Atrial fibrillation: Code(s): I48.91 - Unspecified atrial fibrillation Status: Acute Assessment and Plan: reported Afib RVR at [facility] Currently in SR with frequent PACs EKG SR with PAC Full dose Lovenox at this time, started on warfarin Chads-vas score is a 7, Has-Bled score 2 Does have a moderate risk for major bleeding Consider anticoagulation Not convinced this is true a-fib as there is no concrete evidence, will decrease Lovenox at this time (3) CHF (congestive heart failure): Code(s): I50.9 - Heart failure, unspecified Status: Inactive Assessment and Plan: BNP elevated at 3520 Trend urine output Daily weights Continue furosemide 20mg PO Daily As per echo patient has a 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 Chest xray noted bilateral pleural effusions, with left moderate, right small Thoracentesis 100ml off Supplemental oxygen weaned to room air Deandre hose (4) Lumbar spondylosis: Code(s): M47.816 - Spondylosis without myelopathy or radiculopathy, lumbar region Status: Chronic Assessment and Plan: MRI and CT of the spine all show spondylosis Chronic back pain noted [place] and Tylenol on board (5) Fall: Code(s): W19.XXXA - Unspecified fall, initial encounter Status: Acute Assessment and Plan: patient reports falling 3 times last month head CT did not show any acute abnormalities 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 MRI no acute intracranial findings CTA of the head neck does not show any abnormalities PT and OT orthostatic blood pressure laying 116/57, sitting 116/59, standing 122/63 (6) Dementia: Code(s): F03.90 - Unspecified dementia, unspecified severity, without behavioral disturbance, psychotic disturbance, mood disturbance, and anxiety Status: Acute Assessment and Plan: patient was on Namenda and duloxetine however took himself off stable at this point consider adding anything for behavioral disturbances (7) Pleural effusion: Code(s): J90 - Pleural effusion, not elsewhere classified Status: Acute Assessment and Plan: moderate left and small right pleural effusion noted on CT thoracentesis took off 100ml, gram stain did not show any organisms probably contributed by the CHF Shortness of breath has improved Trend respiratory status with x-rays (8) Aortic stenosis: Code(s): I35.0 - Nonrheumatic aortic (valve) stenosis Status: Acute Assessment and Plan: Echo indicated aortic stenosis Cardiology consulted Probably the reason for the dizziness (9) Apical mural thrombus: Code(s): I51.3 - Intracardiac thrombosis, not elsewhere classified Status: Acute Assessment and Plan: Started on warfarin Seen on the echo Awaiting therapeutic values Time Spent With Patient Time with patient: Greater than 35 minutes Subjective Date/time seen: 08/05/22999 Interval history: 08/05/22999 Patient just had a stress test. Stress test appears to be negative at this time. Patient denies any chest pain, shortness a breath, nausea, vomiting, diarrhea, constipation, weakness or fatigue. Patient is
[2022-08-05 12:35] LABS: Alanine Aminotransferase 22 U/L (6-50); Albumin Level 3.7 g/dL (3.5-5.1); Alkaline Phosphatase 51 U/L (38-126); Anion Gap 7 mmol/L (8-16); Aspartate Amino Transferase 28 U/L (17-59); Bilirubin,Total 0.8 mg/dL (0.2-1.3); Blood Urea Nitrogen 32 mg/dL (9-20); Calcium 8.3 mg/dL (8.4-10.2); Carbon Dioxide 31 mmol/L (22-30); Chloride 100 mmol/L (98-107); Estimated CRCL calculation 34 ml/min; Estimated Glomerular Filt Rate 57; Glucose 102 mg/dL (65-110); Potassium 4.3 mmol/L (3.4-5.0); Sodium 138 mmol/L (137-145)
[2022-08-05 19:51] LABS: Glucose Pleural Fluid 138 mg/dL; LDH Pleural Fluid 80 U/L; Total Protein Pleural Fluid <3.0 g/dL
[2022-08-06] VITALS: PULSE 66
[2022-08-06] MEDS: HYDROcodone/acetaminophen (*CRX) 5-325 MG TABLET 1 TAB PO
[2022-08-06 04:00] VITALS: PULSE 55
[2022-08-06 05:20] VITALS: BP 119/77; PULSE 65; RESP 18; TEMP 36.4; O2SAT 98
[2022-08-06 05:59] LABS: Basophils Absolute Auto 0.1 K/mm3 (0.0-0.1); Basophils Percent Auto 1.3 % (0.2-1.2); Eosinophils Absolute Auto 0.2 K/mm3 (0-0.3); Eosinophils Percent Auto 4.5 % (0-4.4); Hematocrit 33.5 % (42.0-52.0); Immature Granulocyte Absolute 0.06 K/mm3 (0.00-0.031); Immature Granulocyte Percent A 1.1 % (0-0.5); Lymphocytes Absolute Auto 1.65 K/mm3 (0.9-3.2); Lymphocytes Percent Auto 31.2 % (18.3-44.2); Mean Corpuscular HGB Conc 32.8 g/dl (32-36); Mean Corpuscular Hemoglobin 34.2 pg (26-34); Mean Platelet Volume 12.1 fl (7.4-10.4); Monocytes Absolute Auto 0.6 K/mm3 (0.1-0.6); Monocytes Percent Auto 10.6 % (2.6-8.5); Neutrophils Absolute Auto 2.7 K/mm3 (1.3-6.7); Neutrophils Percent Auto 51.3 % (45.5-73.1); Platelet Count Result 230 k/mm3 (150-375); Red Blood Count 3.22 M/mm3 (4.6-6.20); Red Cell Distribution Width 18.2 % (11.5-14.5); White Blood Count 5.3 K/mm3 (4.5-10.0)
[2022-08-06 06:15] LABS: Alanine Aminotransferase 22 U/L (6-50); Albumin Level 3.5 g/dL (3.5-5.1); Alkaline Phosphatase 45 U/L (38-126); Anion Gap 5 mmol/L (8-16); Aspartate Amino Transferase 27 U/L (17-59); Bilirubin,Total 0.8 mg/dL (0.2-1.3); Blood Urea Nitrogen 33 mg/dL (9-20); Calcium 7.8 mg/dL (8.4-10.2); Carbon Dioxide 28 mmol/L (22-30); Chloride 99 mmol/L (98-107); Estimated CRCL calculation 41 ml/min; Estimated Glomerular Filt Rate > 60; Glucose 97 mg/dL (65-110); Magnesium 2.4 mg/dL (1.6-2.3); Sodium 132 mmol/L (137-145)
[2022-08-06 06:20] LABS: INR 1.2
--- NOTE | 2022-08-06 07:06 | P.PNIM_ITS ---
Progress Note: A&P Assessment and Plan (1) Type 2 MD (myocardial infarction): Code(s): I21.A1 - Myocardial infarction type 2 Status: Acute Assessment and Plan: * Secondary to demand ischemia from aortic stenosis * Troponin did come back at 0.613 * Consulted cardiology * EKG showed SR * Continue to trend trops * Echo showed EF of 35-40% with severe aortic sclerosis and stenosis * Aspirin given * Stress test showed an EF of 37% with a small to moderate infarct at the apical an apical lateral segments (2) Atrial fibrillation: Code(s): I48.91 - Unspecified atrial fibrillation Status: Acute Assessment and Plan: * reported Afib RVR at [facility] * Currently in SR with frequent PACs * EKG SR with PAC * Full dose Lovenox at this time, started on warfarin * Chads-vas score is a 7, Has-Bled score 2 * Does have a moderate risk for major bleeding * Consider anticoagulation * Not convinced this is true a-fib as there is no concrete evidence, will decrease Lovenox at this time (3) CHF (congestive heart failure): Code(s): I50.9 - Heart failure, unspecified Status: Inactive Assessment and Plan: * BNP elevated at 3520 * Trend urine output * Daily weights * Continue furosemide 20mg PO Daily * As per echo patient has a 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 * Chest xray noted bilateral pleural effusions, with left moderate, right small * Thoracentesis 100ml off * Supplemental oxygen weaned to room air * Deandre hose * Lexiscan showed an EF of 37% (4) Lumbar spondylosis: Code(s): M47.816 - Spondylosis without myelopathy or radiculopathy, lumbar region Status: Chronic Assessment and Plan: * MRI and CT of the spine all show spondylosis * Chronic back pain noted * [place] and Tylenol on board (5) Fall: Code(s): W19.XXXA - Unspecified fall, initial encounter Status: Acute Assessment and Plan: * patient reports falling 3 times last month * head CT did not show any acute abnormalities * 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 * MRI no acute intracranial findings * CTA of the head neck does not show any abnormalities * PT and OT * orthostatic blood pressure laying 116/57, sitting 116/59, standing 122/63 (6) Dementia: Code(s): F03.90 - Unspecified dementia, unspecified severity, without behavioral disturbance, psychotic disturbance, mood disturbance, and anxiety Status: Acute Assessment and Plan: * patient was on Namenda and duloxetine however took himself off * stable at this point * consider adding anything for behavioral disturbances (7) Pleural effusion: Code(s): J90 - Pleural effusion, not elsewhere classified Status: Acute Assessment and Plan: * moderate left and small right pleural effusion noted on CT * thoracentesis took off 100ml, gram stain did not show any organisms * probably contributed by the CHF * Shortness of breath has improved * Trend respiratory status with x-rays (8) Aortic stenosis: Code(s): I35.0 - Nonrheumatic aortic (valve) stenosis Status: Acute Assessment and Plan: * Echo indicated aortic stenosis * Cardiology consulted * Probably
--- NOTE | 2022-08-06 07:06 | PM.IMPN ---
Progress Note: A&P Assessment and Plan (1) Type 2 MD (myocardial infarction): Code(s): I21.A1 - Myocardial infarction type 2 Status: Acute Assessment and Plan: Secondary to demand ischemia from aortic stenosis Troponin did come back at 0.613 Consulted cardiology EKG showed SR Continue to trend trops Echo showed EF of 35-40% with severe aortic sclerosis and stenosis Aspirin given Stress test showed an EF of 37% with a small to moderate infarct at the apical an apical lateral segments (2) Atrial fibrillation: Code(s): I48.91 - Unspecified atrial fibrillation Status: Acute Assessment and Plan: reported Afib RVR at [facility] Currently in SR with frequent PACs EKG SR with PAC Full dose Lovenox at this time, started on warfarin Chads-vas score is a 7, Has-Bled score 2 Does have a moderate risk for major bleeding Consider anticoagulation Not convinced this is true a-fib as there is no concrete evidence, will decrease Lovenox at this time (3) CHF (congestive heart failure): Code(s): I50.9 - Heart failure, unspecified Status: Inactive Assessment and Plan: BNP elevated at 3520 Trend urine output Daily weights Continue furosemide 20mg PO Daily As per echo patient has a 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 Chest xray noted bilateral pleural effusions, with left moderate, right small Thoracentesis 100ml off Supplemental oxygen weaned to room air Deandre hose Lexiscan showed an EF of 37% (4) Lumbar spondylosis: Code(s): M47.816 - Spondylosis without myelopathy or radiculopathy, lumbar region Status: Chronic Assessment and Plan: MRI and CT of the spine all show spondylosis Chronic back pain noted [place] and Tylenol on board (5) Fall: Code(s): W19.XXXA - Unspecified fall, initial encounter Status: Acute Assessment and Plan: patient reports falling 3 times last month head CT did not show any acute abnormalities 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 MRI no acute intracranial findings CTA of the head neck does not show any abnormalities PT and OT orthostatic blood pressure laying 116/57, sitting 116/59, standing 122/63 (6) Dementia: Code(s): F03.90 - Unspecified dementia, unspecified severity, without behavioral disturbance, psychotic disturbance, mood disturbance, and anxiety Status: Acute Assessment and Plan: patient was on Namenda and duloxetine however took himself off stable at this point consider adding anything for behavioral disturbances (7) Pleural effusion: Code(s): J90 - Pleural effusion, not elsewhere classified Status: Acute Assessment and Plan: moderate left and small right pleural effusion noted on CT thoracentesis took off 100ml, gram stain did not show any organisms probably contributed by the CHF Shortness of breath has improved Trend respiratory status with x-rays (8) Aortic stenosis: Code(s): I35.0 - Nonrheumatic aortic (valve) stenosis Status: Acute Assessment and Plan: Echo indicated aortic stenosis Cardiology consulted Probably the reason for the dizziness (9) Apical mural thrombus: Code(s): I51.3 - Intracardiac thrombosis, not elsewhere classified Status: Acute Assessment and Plan: Warfarin on hold at this time Seen on the echo Awaiting therapeutic values Subjective Date/time seen: 08/06/22 07:06 Interval history: 08/06/22 08/05/22 1000 Patient just had a stress test. Stress test appears to be negative at this time. Patient denies any chest pain, shortness a breath, nausea, vomiting, diarrhea, constipation, weakness or fatigue. Patient is still havi
--- NOTE | 2022-08-06 07:42 | PM.PNCARD ---
Progress Note: A&P Assessment and Plan (1) Chest pain: Code(s): R07.9 - Chest pain, unspecified Status: Acute Assessment and Plan: Resolved. Atypical and transient. EKG is unremarkable. Could be due to pneumonia, heartburn, musculoskeletal. Discuss results of lexiscan myoview on 08/05/22 showing possible apical ischemia only. Continue aspirin daily. (2) Systolic heart failure: Code(s): I50.20 - Unspecified systolic (congestive) heart failure Status: Acute Assessment and Plan: New onset. Could be due to pneumonia, myocarditis from covid infection x 3. 08/02/22 Echo: EF 35-40%, mild LVE, mod LAE, mild UMA, mod-severe (JENNIFER 1.13 cm2), mild MR. He was diuresed with Lasix 40 mg IV BID and this has been discontinued. Started Toprol XL 12.5 mg daily, Losartan 12.5 mg daily, Lasix 20 mg PO daily. (3) Aortic stenosis: Code(s): I35.0 - Nonrheumatic aortic (valve) stenosis Status: Acute Assessment and Plan: Mod-severe. Does not need replacement at this time. (4) Elevated troponin: Code(s): R77.8 - Other specified abnormalities of plasma proteins Status: Acute Assessment and Plan: Troponin peaked at 0.61 and trended down. This could be due to pneumonia, CHF, diuresis. (5) Pneumonia: Code(s): J18.9 - Pneumonia, unspecified organism Status: Acute Assessment and Plan: On antibiotics as per hospitalist. (6) Apical mural thrombus: Code(s): I51.3 - Intracardiac thrombosis, not elsewhere classified Status: Acute Assessment and Plan: Resume Warfarin 5 mg in evening and obtain INR on Friday08/09/22 and results to me. May d/c home tomorrow from cardiology standpoint and f/u with me on Friday08/12/22 at [facility]. Subjective Date/time seen: 08/06/22 07:42 Interval history: Denies chest pain or sob. Has some dry cough. Exam Const: General: cooperative, healthy appearing and comfortable Orientation/consciousness: oriented to person, oriented to place and oriented to time Resp: Auscultation: clear to auscultation bilaterally, no crackles, no rales, no rhonchi and no wheezes Cardio: Jugular venous distension: no JVD Rate: regular rate Rhythm: regular rhythm Heart sounds: Murmur heart sound present (II/ systolic mumur RICS) Peripheral pulses: dorsalis pedis present Neuro: General: oriented to person, oriented to place and oriented to time Extrem: Right lower extremity: no edema Left lower extremity: no edema Objective Data Vital Signs Vital Signs: Vital Signs - 24 hr 08/05/22 09:43 08/05/22 09:44 08/05/22 11:40 Temperature Pulse Rate 66 66 61 Respiratory Rate Blood Pressure 122/59 L 110/61 Pulse Oximetry 98 Oxygen Delivery 08/05/22 11:44 08/05/22 11:48 08/05/22 09:45 Temperature Pulse Rate 64 71 61 Respiratory Rate Blood Pressure 110/64 94/62 L Pulse Oximetry Oxygen Delivery 08/05/22 09:45 08/05/22 12:00 08/05/22 14:00 Temperature 97.6 F Pulse Rate 77 60 Respiratory Rate 16 Blood Pressure 110/56 L Pulse Oximetry 95 100 Oxygen Delivery Room Air 08/05/22 16:00 08/05/22 20:49 08/05/22 20:52 Temperature 98.1 F 98.2 F Pulse Rate 59 L 63 71 Respiratory Rate 18 18 Blood Pressure 113/66 108/57 L Pulse Oximetry 96 99 Oxygen Delivery 08/05/22 20:55 08/05/22 21:19 08/05/22 20:00 Temperature 98.2 F 98.1 F Pulse Rate 74 66 Respiratory Rate 18 17 Blood Pressure 112/58 L 119/59 L Pulse Oximetry 100 97 Oxygen Delivery Room Air 08/05/22 20:00 08/06/22 00:00 08/06/22 04:00 Temperature Pulse Rate 66 66 55 L Respiratory Rate Blood Pressure Pulse Oximetry Oxygen Delivery 08/06/22 05:20 Temperature 97.6 F Pulse Rate 65 Respiratory Rate 18 Blood Pressure 119/77 Pulse Oximetry 98 Oxygen Delivery Intake/Output Intake/Output: Intake & Output 08/03/22 08/04/22 08/05/22 08/06/22 23:59 23:59 23:5
[2022-08-06 08:00] VITALS: PULSE 66
--- NOTE | 2022-08-06 08:30 | P.DS_ITS ---
DS: Admitting Diagnosis Discharge Date 08/06/22829 Admitting Diagnosis CHF exacerbation, type 2 [place] DS: Discharge Diagnosis Discharge Diagnosis (1) Type 2 [place] (myocardial infarction): Code(s): I21.A1 - Myocardial infarction type 2 Status: Acute Assessment and Plan: * Secondary to demand ischemia from aortic stenosis * Troponin did come back at 0.613 * Consulted cardiology * EKG showed SR * Continue to trend trops * Echo showed EF of 35-40% with severe aortic sclerosis and stenosis * Aspirin given * Stress test showed an EF of 37% with a small to moderate infarct at the apical an apical lateral segments (2) Atrial fibrillation: Code(s): I48.91 - Unspecified atrial fibrillation Status: Acute Assessment and Plan: * reported Afib RVR at [facility] * Currently in SR with frequent PACs * EKG SR with PAC * Full dose Lovenox at this time, started on warfarin * Chads-vas score is a 7, Has-Bled score 2 * Does have a moderate risk for major bleeding * Consider anticoagulation * Not convinced this is true a-fib as there is no concrete evidence, will decrease Lovenox at this time (3) CHF (congestive heart failure): Code(s): I50.9 - Heart failure, unspecified Status: Inactive Assessment and Plan: * BNP elevated at 3520 * Trend urine output * Daily weights * Continue furosemide 20mg PO Daily * As per echo patient has a combined systolic and diastolic acute on chronic hea rt failure with exacerbation * Chest xray noted bilateral pleural effusions, with left moderate, right small * Thoracentesis 100ml off * Supplemental oxygen weaned to room air * Deandre hose * Lexiscan showed an EF of 37% (4) Lumbar spondylosis: Code(s): M47.816 - Spondylosis without myelopathy or radiculopathy, lumbar region Status: Chronic Assessment and Plan: * MRI and CT of the spine all show spondylosis * Chronic back pain noted * [place] and Tylenol on board (5) Fall: Code(s): W19.XXXA - Unspecified fall, initial encounter Status: Acute Assessment and Plan: * patient reports falling 3 times last month * head CT did not show any acute abnormalities * 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 * MRI no acute intracranial findings * CTA of the head neck does not show any abnormalities * PT and OT * orthostatic blood pressure laying 116/57, sitting 116/59, standing 122/63 (6) Dementia: Code(s): F03.90 - Unspecified dementia, unspecified severity, without behavioral disturbance, psychotic disturbance, mood disturbance, and anxiety Status: Acute Assessment and Plan: * patient was on Namenda and duloxetine however took himself off * stable at this point * consider adding anything for behavioral disturbances (7) Pleural effusion: Code(s): J90 - Pleural effusion, not elsewhere classified Status: Acute Assessment and Plan: * moderate left and small right pleural effusion noted on CT * thoracentesis took off 100ml, gram stain did not show any organisms * probably contributed by the CHF * Shortness of breath has improved * Trend respiratory status with x-rays (8) Aortic stenosis: Code(s): I35.0 - Nonrheumatic aortic (valve) stenosis
--- NOTE | 2022-08-06 08:30 | PM.DS ---
DS: Admitting Diagnosis Discharge Date 08/06/22829 Admitting Diagnosis CHF exacerbation, type 2 ND DS: Discharge Diagnosis Discharge Diagnosis (1) Type 2 ND (myocardial infarction): Code(s): I21.A1 - Myocardial infarction type 2 Status: Acute Assessment and Plan: Secondary to demand ischemia from aortic stenosis Troponin did come back at 0.613 Consulted cardiology EKG showed SR Continue to trend trops Echo showed EF of 35-40% with severe aortic sclerosis and stenosis Aspirin given Stress test showed an EF of 37% with a small to moderate infarct at the apical an apical lateral segments (2) Atrial fibrillation: Code(s): I48.91 - Unspecified atrial fibrillation Status: Acute Assessment and Plan: reported Afib RVR at [facility] Currently in SR with frequent PACs EKG SR with PAC Full dose Lovenox at this time, started on warfarin Chads-vas score is a 7, Has-Bled score 2 Does have a moderate risk for major bleeding Consider anticoagulation Not convinced this is true a-fib as there is no concrete evidence, will decrease Lovenox at this time (3) CHF (congestive heart failure): Code(s): I50.9 - Heart failure, unspecified Status: Inactive Assessment and Plan: BNP elevated at 3520 Trend urine output Daily weights Continue furosemide 20mg PO Daily As per echo patient has a 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 Chest xray noted bilateral pleural effusions, with left moderate, right small Thoracentesis 100ml off Supplemental oxygen weaned to room air Deandre hose Lexiscan showed an EF of 37% (4) Lumbar spondylosis: Code(s): M47.816 - Spondylosis without myelopathy or radiculopathy, lumbar region Status: Chronic Assessment and Plan: MRI and CT of the spine all show spondylosis Chronic back pain noted [place] and Tylenol on board (5) Fall: Code(s): W19.XXXA - Unspecified fall, initial encounter Status: Acute Assessment and Plan: patient reports falling 3 times last month head CT did not show any acute abnormalities 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 MRI no acute intracranial findings CTA of the head neck does not show any abnormalities PT and OT orthostatic blood pressure laying 116/57, sitting 116/59, standing 122/63 (6) Dementia: Code(s): F03.90 - Unspecified dementia, unspecified severity, without behavioral disturbance, psychotic disturbance, mood disturbance, and anxiety Status: Acute Assessment and Plan: patient was on Namenda and duloxetine however took himself off stable at this point consider adding anything for behavioral disturbances (7) Pleural effusion: Code(s): J90 - Pleural effusion, not elsewhere classified Status: Acute Assessment and Plan: moderate left and small right pleural effusion noted on CT thoracentesis took off 100ml, gram stain did not show any organisms probably contributed by the CHF Shortness of breath has improved Trend respiratory status with x-rays (8) Aortic stenosis: Code(s): I35.0 - Nonrheumatic aortic (valve) stenosis Status: Acute Assessment and Plan: Echo indicated aortic stenosis Cardiology consulted Probably the reason for the dizziness (9) Apical mural thrombus: Code(s): I51.3 - Intracardiac thrombosis, not elsewhere classified Status: Acute Assessment and Plan: Warfarin on hold at this time Seen on the echo Awaiting therapeutic values (10) Pneumonia: Code(s): J18.9 - Pneumonia, unspecified organism Status: Acute Assessment and Plan: Seen on the chest xray Started Azithromycin Continue at home DS: S
[2022-08-06 08:53] LABS: Partial Thromboplastin Time 40.4 SECONDS (22.3-36.8)
[2022-08-06 09:29] VITALS: PULSE 64
[2022-08-06] MEDS: FUROSEMIDE 20 MG TABLET PO (09:29)
[2022-08-06] MEDS: AZITHROMYCIN 250 MG TABLET 500 MG PO (09:29)
[2022-08-06] MEDS: ASPIRIN 81 MG ENTERIC TABLET PO (09:29)
[2022-08-06] MEDS: METOPROLOL SUCCINATE EXT REL 12.5 MG TABCR PO (09:29)
[2022-08-06] MEDS: LOSARTAN POTASSIUM 12.5 MG TABLET PO (09:29)
[2022-08-06] MEDS: DOCUSATE SODIUM 100 MG CAPSULE PO (09:31)
[2022-08-06 12:00] VITALS: PULSE 72
[2022-08-07 11:27] LABS: Amylase, Pleural Fluid <10 U/L
[2022-08-07 20:23] LABS: Albumin Pleural Fluid 1.7 g/dL
== END 2022-08-06 14:03 | disposition home health service (06) | DRG 280 ==
PROVIDERS: Admitting Provider Internal Medicine; PCP Internal Medicine; Visit Provider Nurse Practitioner
DX: I11.0 Hypertensive heart disease with heart failure (principal); I21.A1 Myocardial infarction type 2; I50.43 Acute on chronic combined systolic (congestive) and diastolic (congestive) heart failure; J18.9 Pneumonia, unspecified organism; J90 Pleural effusion, not elsewhere classified; I35.0 Nonrheumatic aortic (valve) stenosis; I48.91 Unspecified atrial fibrillation; M47.816 Spondylosis without myelopathy or radiculopathy, lumbar region; W19.XXXA Unspecified fall, initial encounter; F03.90 Unspecified dementia, unspecified severity, without behavioral disturbance, psychotic disturbance, mood disturbance, and anxiety; I51.3 Intracardiac thrombosis, not elsewhere classified; E78.5 Hyperlipidemia, unspecified; E11.9 Type 2 diabetes mellitus without complications; D64.9 Anemia, unspecified; M19.90 Unspecified osteoarthritis, unspecified site; Z96.659 Presence of unspecified artificial knee joint; Z86.16 Personal history of COVID-19; Z90.49 Acquired absence of other specified parts of digestive tract
CPT/HCPCS: 32555; 36415; 70496; 70498; 70551; 71045; 78452; 80053; 80061; 82042; 82150; 82306; 82465; 82607; 82728; 82746; 82945; 83036; 83540; 83550; 83615; 83735; 84157; 84311; 84439; 84443; 84466; 84478; 84480; 84484; 85025; 85610; 85730; 87015; 87070; 87075; 87102; 87116; 87205; 87206; 88108; 88184; 88185; 88305; 88342; 89051; 93005; 93017; 93970; 96372; 96375; 96376; 97161; 97165; 97530; 97535; A9270; A9502; C8929; G0378; G0379; J1650; J1940; J2785; Q9957; Q9967

== ENCOUNTER 2022-08-09 11:27 | Emergency (ER) | payer MEDICARE, SELFPAY ==
[2022-08-09 12:10] VITALS: BP 121/54; PULSE 71; RESP 20; TEMP 37.1; O2SAT 98
--- NOTE | 2022-08-09 12:42 | ED.GENADULT ---
HPI - General Adult General Chief complaint: Back Pain/Injury Stated complaint: BACK PAIN History of Present Illness HPI narrative: The patient is an 87-year-old male who was just discharged from [facility] 08/06/2022, 3 days ago. He did have a fall approximately 10 days ago prior to the hospital admission. He is currently on Tylenol for his pain. He has had a workup in the past that included an MRI and a CT of the spine which showed severe spondylolysis. The patient has had an extensive workup of the lower back pain during his recent admission and prior to that as an outpatient, see results below. The main indication for the recent admission was cardiac, with acute exacerbation of CHF and demand ischemia secondary to an aortic stenosis. Ejection fraction 35-40%. Has been placed on warfarin. No recent trauma since hospital discharge. His lower back pain has increased: he comes in for evaluation of the pain as he is able to ambulate approximately 10-15 steps before needing to stop secondary to the pain. No numbness in the lower extremities. No neck pain. Related Data Allergies Allergy/AdvReac Type Severity Reaction Status Date / Time Penicillins Allergy Intermediate Unknown Verified 08/09/22 12:15 Review of Systems Review of Systems: All systems reviewed & are unremarkable except as noted in HPI and below Constitutional: Constitutional: Reports no additional constitutional complaints, Denies anorexia, Denies body ache(s), Denies chills, Denies excessive sweating, Denies fatigue, Denies fever(s), Denies frequent falls, Denies headache(s), Denies malaise and Denies poor appetite Eyes: Eyes: Reports no additional eye complaints, Denies blurry vision, Denies change in vision, Denies irritation, Denies itchy eyes and Denies photophobia ENT: Reports system reviewed and no additional complaints, except as documented, Reports Normal hearing present, Denies change in voice, Denies dysphagia, Denies vertigo, Denies dizziness, Denies ear discharge, Denies headache(s), Denies hearing loss, Denies hoarseness, Denies nasal congestion, Denies neck pain, Denies sinus pressure, Denies sore throat and Denies throat swelling Cardiovascular: Cardiovascular: Reports no additional cardiovascular complaints, Denies chest pain, Denies syncope, Denies rapid heart rate, Denies irregular heart rhythm, Denies leg edema, Denies dyspnea and Denies slow heart rate Respiratory: Respiratory: Reports no additional respiratory complaints, Denies cough, Denies dyspnea, Denies stridor and Denies wheezing Gastrointestinal: Gastrointestinal: Reports no additional gastrointestinal complaints, Denies abdominal pain, Denies melena, Denies hematochezia, Denies dysphagia, Denies diarrhea, Denies nausea and Denies vomiting Genitourinary: Genitourinary: Denies hematuria, Denies oliguria, Denies dysuria, Denies flank pain, Denies urinary frequency and Denies urinary urgency Musculoskeletal: Musculoskeletal: Reports no additional musculoskeletal complaints, Reports abnormal gait, Reports back pain ( lumbar region), Denies myalgias, Denies arthralgias, Denies joint swelling, Denies muscle cramps, Denies muscle weakness, Denies neck pain and Denies numbness Integumentary/Breasts: Skin/Breast: Reports system reviewed and no additional complaints, except as docu, Denies breast pain, Denies change in pigmentation, Denies pruritus, Denies erythema and Denies wounds Neurologic: Reports system reviewed and no additional complaints, except as documented, Reports Normal hearing present, Denies Abnormal speech present, Denies abnormal gait, Denies confusion, Denies vertigo, Denies dizziness, Denies syncope, Denies frequent falls, Denies headache(s), Denies focal weakness, Denies numbness and Denies paresthesias Psychiatric: Psychiatric: Reports no additional psychiatric complaints and Denies confusion Endocrine: Endocrine: Reports no additional endocrine complaints, Denies cold intolerance, De
[2022-08-09] MEDS: CYCLOBENZAPRINE HCL 10 MG TABLET 5 MG PO (13:20)
[2022-08-09] MEDS: ACETAMINOPHEN 325 MG TABLET 650 MG PO (13:20)
[2022-08-09] MEDS: HYDROcodone/acetaminophen (*CRX) 5-325 MG TABLET 1 TAB PO (13:20)
[2022-08-09 14:15] VITALS: BP 153/89; PULSE 61; RESP 20; O2SAT 99
[2022-08-09 15:04] LABS: Appearance Urine Clear (Clear); Bilirubin Urine Negative (Negative); Blood Urine Negative (Negative); Glucose Urine UA Negative (Negative); Ketones Urine Negative (Negative); Leukocyte Esterase Ur Negative LEU/UL (Negative); Nitrate Urine Negative (Negative); Protein Urine Negative (Negative); Urobilinogen Urine 0.2 mg/dL (0.2-1.0); pH Urine 5.5 (5.0-8.0)
[2022-08-09 15:52] LABS: Add Urine Microscopic? NO; Color Urine Light Yellow (Yellow)
[2022-08-09 16:30] VITALS: BP 143/72; PULSE 60; RESP 20; O2SAT 99
[2022-08-09 17:00] VITALS: BP 141/79; PULSE 60; RESP 20; O2SAT 100
[2022-08-09 18:07] VITALS: BP 114/50; PULSE 60; RESP 20; TEMP 36.7; O2SAT 98
== END 2022-08-09 18:13 | disposition home or self-care (01) ==
PROVIDERS: Emergency Provider Emergency Medicine; PCP Internal Medicine
DX: M54.50 Low back pain, unspecified (principal); G89.29 Other chronic pain; M47.816 Spondylosis without myelopathy or radiculopathy, lumbar region; I11.0 Hypertensive heart disease with heart failure; I50.9 Heart failure, unspecified; I48.91 Unspecified atrial fibrillation; E11.9 Type 2 diabetes mellitus without complications; W19.XXXA Unspecified fall, initial encounter
CPT/HCPCS: 81003; 99283; A9270

== ENCOUNTER 2022-08-10 14:02 | Outpatient (CLI) | payer MEDICARE, SELFPAY ==
[2022-08-10 14:51] LABS: INR 1.2
== END 2022-08-10 14:03 | disposition home or self-care (01) ==
LOC: CHSLAB 14:03
PROVIDERS: PCP Internal Medicine; Visit Provider Nurse Practitioner
DX: I51.3 Intracardiac thrombosis, not elsewhere classified (principal); I48.91 Unspecified atrial fibrillation
CPT/HCPCS: 36415; 85610

== ENCOUNTER 2022-08-16 13:56 | Outpatient (CLI) | payer MEDICARE, SELFPAY ==
[2022-08-16 14:28] LABS: INR 1.9; Prothrombin Time 19.4 Seconds (9.50-12.10)
== END 2022-08-16 13:57 | disposition home or self-care (01) ==
LOC: CHSLAB 13:58
PROVIDERS: PCP Internal Medicine; Visit Provider Internal Medicine Cardiovascular Disease
DX: I51.3 Intracardiac thrombosis, not elsewhere classified (principal); I48.91 Unspecified atrial fibrillation
CPT/HCPCS: 36415; 85610

== ENCOUNTER 2022-08-20 11:13 | Outpatient (RCR) | payer MEDICARE, SELFPAY ==
--- NOTE | 2022-08-20 12:12 | PTOPEVAL1 ---
Assessment and note entered by Aleida Lim, PT Evaluation Information Assessment Status Evaluation Diagnosis L shoulder pain, Low Back Pain Onset 07/24/22 Subjective Information Neil Wharton reports chronic low back pain that has been treated with injections. His last injection was a couple months ago and he is noting increased pain with sitting more than 5 minutes, standing up, and moving around. He uses aspirin and tylenol for pain control. He reports he fell a few weeks ago and landed on his back and hit his head. He was hospitalized after the fall and he was diagnosed with congestive heart failure while in the hospital. He also has ongoing left shoulder pain that started after he fell 3 times a while back. He has had PT in the past for the shoulder pain. He has increased pain with reaching out, overhead, and behind his back. He lives with his in a single story home. He has 4 steps to get into his home which he reports he has to take slowly. He is managing on his own with bathing and grooming but it takes him extra time. Reported Pain Level Pain Score 4,9: Self Report Assessment PT Clinical Summary Neil Wharton presents with chronic low back and left shoulder pain. He has been diagnosed with arthritis and has had several falls. His most recent fall was a couple weeks ago and he fell onto his back and hit his head. He has difficulty with bending, standing up from sitting, prolonged sitting, and reaching with the left arm. These limitations lead to difficulty with transfers, bathing, and grooming. He objectively demonstrates tenderness in the lumbar paraspinals and anterior left shoulder joint; decreased and painful left shoulder ROM; decreased and painful lumbar AROM; decreased left shoulder, bilateral hip, and core strength; impaired posture; impaired gait; decreased dynamic balance; and decreased functional abilities. His Tinetti score indicates his a high fall risk. He will benefit from skilled PT to address these limitations. Plan of Care Interventions Electrical Stimulation,Hot Pack/Cold Pack,Manual Therapy,Neuro Re-education,Patient/Caregiver Educati,Therapeutic Activities,Therapeutic Exercise PT Services Indicated Yes Treatment Frequency and 2 times a week for 12 visits Duration
== END 2022-08-27 20:00 | disposition home or self-care (01) ==
LOC: CHSPT 11:13
PROVIDERS: PCP Internal Medicine; Visit Provider Internal Medicine
DX: M25.512 Pain in left shoulder (principal)
CPT/HCPCS: 97014; 97110; 97161; G0283

== ENCOUNTER 2022-09-16 15:35 | Outpatient (CLI) | payer MEDICARE, SELFPAY ==
[2022-09-16 16:27] LABS: Prothrombin Time 10.9 Seconds (9.50-12.10)
== END 2022-09-16 15:36 | disposition home or self-care (01) ==
PROVIDERS: PCP Internal Medicine; Visit Provider Internal Medicine Cardiovascular Disease
DX: I51.3 Intracardiac thrombosis, not elsewhere classified (principal); I48.91 Unspecified atrial fibrillation; Z79.01 Long term (current) use of anticoagulants
CPT/HCPCS: 36415; 85610

== ENCOUNTER 2022-11-07 16:18 | Emergency (ER) | payer MEDICARE, SELFPAY ==
--- NOTE | ~2022-11-07 | XR_ITS ---
EXAMINATION: XR chest 2V DATE: 11/07/2022 17:07 INDICATION: Central chest pain/pressure TECHNIQUE: PA and lateral views of the chest were obtained. COMPARISON: Chest radiograph dated 08/03/[address] dated 03/06/2022 FINDINGS: Unchanged mild elevation the left hemidiaphragm. No focal airspace opacities, pulmonary edema, pleura l effusion or pneumothorax. The cardiomediastinal silhouette is normal. Cholecystectomy clips in righ t upper quadrant. Curvilinear calcification in the right upper quadrant corresponding to a right royal l cyst on prior CT dated mild thoracic and moderate lumbar spondylosis. IMPRESSION: 1. No acute cardiopulmonary disease. Reviewed, dictated and finalized at location A. R MANUFACTURER'S REPRESENTATIVE
--- NOTE | 2022-11-07 16:23 | ECG_ITS ---
Measurements Intervals [place] Rate: 67 P: 50 AL: 176 QRS: -22 QRSD: 112 T: 37 QT: 430 QTc: 457 Interpretive Statements SINUS RHYTHM LEFT VENTRICULAR HYPERTROPHY AND ST-T CHANGE INFERIOR INFARCT, AGE INDETERMINATE BASELINE ARTIFACT- I, II, III, AVR, AVL, AVF, V1 BORDERLINE ECG COMPARED TO ECG 08/03/2022 14:28:11 NO SIGNIFICANT CHANGES Electronically Signed On 11-07-2022 19:09:36 [employer]NAGER [employer]PLE[employer]IONS by Jony Mix D.O.
[2022-11-07 16:35] VITALS: BP 125/52; PULSE 62; RESP 18; TEMP 36.6; O2SAT 99
[2022-11-07 17:36] LABS: Basophils Absolute Auto 0.1 K/mm3 (0.0-0.1); Basophils Percent Auto 1.1 % (0.2-1.2); Eosinophils Absolute Auto 0.6 K/mm3 (0-0.3); Eosinophils Percent Auto 9.2 % (0-4.4); Hematocrit 34.5 % (42.0-52.0); Immature Granulocyte Absolute 0.08 K/mm3 (0.00-0.031); Immature Granulocyte Percent A 1.3 % (0-0.5); Lymphocytes Absolute Auto 2.14 K/mm3 (0.9-3.2); Mean Corpuscular HGB Conc 31.9 g/dl (32-36); Mean Corpuscular Hemoglobin 33.6 pg (26-34); Mean Corpuscular Volume 105.5 fl (80-100); Mean Platelet Volume 10.4 fl (7.4-10.4); Monocytes Absolute Auto 0.6 K/mm3 (0.1-0.6); Monocytes Percent Auto 9.6 % (2.6-8.5); Neutrophils Absolute Auto 2.7 K/mm3 (1.3-6.7); Neutrophils Percent Auto 43.8 % (45.5-73.1); Nucleated Red Blood Cells Perc 0.3 % (0.0-0.2); Platelet Count Result 220 k/mm3 (150-375); Red Blood Count 3.27 M/mm3 (4.6-6.20); Red Cell Distribution Width 19.7 % (11.5-14.5); White Blood Count 6.1 K/mm3 (4.5-10.0)
[2022-11-07 17:48] LABS: Alanine Aminotransferase 23 U/L (6-50); Albumin Level 4.3 g/dL (3.5-5.1); Alkaline Phosphatase 55 U/L (38-126); Anion Gap 5 mmol/L (8-16); Aspartate Amino Transferase 26 U/L (17-59); Bilirubin,Total 0.6 mg/dL (0.2-1.3); Blood Urea Nitrogen 21 mg/dL (9-20); Calcium 8.6 mg/dL (8.4-10.2); Carbon Dioxide 27 mmol/L (22-30); Chloride 102 mmol/L (98-107); Estimated CRCL calculation 47 ml/min; Estimated Glomerular Filt Rate > 60; Glucose 102 mg/dL (65-110); Lipase 44 U/L (23-300); Potassium 3.9 mmol/L (3.4-5.0); Sodium 134 mmol/L (137-145)
[2022-11-07 17:56] LABS: Prothrombin Time 22.1 Seconds (11.1-14.7)
[2022-11-07 17:57] LABS: Partial Thromboplastin Time 40.6 SECONDS (22.3-36.8)
[2022-11-07 17:58] LABS: Troponin I < 0.012 ng/mL (0.000-0.034)
[2022-11-07 18:00] LABS: Anisocytosis 1+ (NORMAL); Macrocytosis 1+ (NORMAL); Ovalocytes 1+ (NORMAL); Platelet Estimate Adequate (Adequate); Schistocytes None Seen (NORMAL)
--- NOTE | 2022-11-07 18:36 | ED.CHESTPAIN ---
HPI - Chest Pain General Chief Complaint: Chest Pain Stated Complaint: chest pain Time Seen by Provider: 11/07/22 18:36 Source: patient Limitations: no limitations History of Present Illness HPI narrative: 87 years old white male came to the ED by private car complaining of chest pain mainly on the right side started 2 to 3 days ago. Patient describes the pain as constant. Denies shortness of breath, denies aggravating or relieving factors, fever, chills, nausea, vomiting. Related Data Allergies Allergy/AdvReac Type Severity Reaction Status Date / Time Penicillins Allergy Intermediate Unknown Verified 09/16/22 15:11 Review of Systems Review of Systems: All systems reviewed & are unremarkable except as noted in HPI and below PMFSH Past Medical History Medical History Arthritis Atrial fibrillation Benign essential HTN Community acquired pneumonia (~09/13/19) COVID-19 Dementia Diabetes mellitus Fall Hypertension Lumbar spondylosis Type 2 diabetes mellitus without complications Vitamin B 12 deficiency Vitamin D deficiency, unspecified Surgical History Surgical History History of back surgery History of knee replacement Hx of cholecystectomy Hx of tonsillectomy S/P cataract surgery Family History Family History Mother Family history of coronary artery disease Father , father of metastatic lung cancer Family history of coronary artery disease Other Family history of malignant neoplasm Social History Social History Social History: Patient lives with his in [place]. He has one child, and 3 grandchildren, however, one is . He elects his of 63 yearsTere to be his surrogate. He denies having any pets. Smoking status: Never smoker Alcohol intake: former Substance use: unknown Substance use type: does not use Last use: 20 plus years Lack of Transportation: No Lack of Food: Never True Current Housing: I Have Housing Concerned About Future Housing: No Difficulty Paying Gas/Electric Bills: No Difficulty Paying for Meds: No Currently Unemployed: No Education: High School Diploma/GED Difficulty w/ Childcare or Family Care: No Living arrangements: with family Occupation/Education: retired Additional occupation/education comments: Retired [employer] Gender identity (if verbalized by the patient): Male Sexual Orientation (if Verbalized by the Patient): Straight or Heterosexual Spiritual care concerns: No Agree to blood products: Yes Exam Narrative: General appearance: Well-developed, well-nourished Skin: Multiple blisters, erythematous base on the right side of the chest and right back, does not cross the midline anteriorly or posteriorly, consistent with shingles Head: Normocephalic, nontraumatic Eyes: Clear conjunctiva ENT: Oropharynx normal, ears normal, nose normal Neck: Supple, nontender Chest and respiratory: Airway patent, no respiratory distress, no accessory muscle use Heart: Regular rate/rhythm Abdomen: Soft, nontender, no organomegaly, quiet bowel sounds Vascular: Normal peripheral pulses, normal capillary refill. Musculoskeletal: Normal range of motion, nontender back Neurologic: Alert and oriented ?3, FISHER is normal as tested, no gross motor deficit Course Vital Signs Vital signs: Vital Signs Temperature 36.6 C 11/07/22 16:35 Pulse Rate 62 11/07/22 16:35 Respiratory Rate 18 11/07/22 16:35 Blood Pressure 125/52 L
[2022-11-07 18:56] VITALS: BP 146/74; PULSE 69; RESP 16; O2SAT 100
== END 2022-11-07 18:56 | disposition home or self-care (01) ==
LOC: ANHED 18:48
PROVIDERS: Emergency Provider Emergency Medicine; PCP Internal Medicine
DX: B02.9 Zoster without complications (principal); F03.90 Unspecified dementia, unspecified severity, without behavioral disturbance, psychotic disturbance, mood disturbance, and anxiety; I48.91 Unspecified atrial fibrillation; I10 Essential (primary) hypertension; E11.9 Type 2 diabetes mellitus without complications; E53.8 Deficiency of other specified B group vitamins; E55.9 Vitamin D deficiency, unspecified; M19.90 Unspecified osteoarthritis, unspecified site; Z86.16 Personal history of COVID-19; Z87.01 Personal history of pneumonia (recurrent); Z96.659 Presence of unspecified artificial knee joint; Z98.49 Cataract extraction status, unspecified eye; Z79.01 Long term (current) use of anticoagulants; Z79.82 Long term (current) use of aspirin
CPT/HCPCS: 36415; 71046; 80053; 83690; 84484; 85025; 85610; 85730; 93005; 99284

== ENCOUNTER 2023-02-15 20:22 | Emergency (ER) | payer MEDICARE, SELFPAY ==
[2023-02-15 20:22] VITALS: BP 132/80; PULSE 80; RESP 20; TEMP 36.6; O2SAT 95
--- NOTE | 2023-02-15 20:38 | ED.GENADULT ---
HPI - General Adult General Stated complaint: skin tear L arm Time Seen by Provider: 02/15/23 20:30 History of Present Illness HPI narrative: This is an 79-year-old male on warfarin presenting with a small skin tear in his left arm. He had a blood draw at an outside facility. When he was removing the tape he sustained a small v-shaped skin tear on his left arm. He has tried to dress it with a Band-Aid was that continued to ooze blood. No other complaints. Related Data Allergies Allergy/AdvReac Type Severity Reaction Status Date / Time Penicillins Allergy Intermediate Unknown Verified 11/18/22 14:08 [facility] Past Medical History Medical History (Reviewed 11/18/22 @ 14:09 by Molly Mcfarland [facility]) Arthritis Atrial fibrillation Benign essential HTN Community acquired pneumonia (~09/13/19) COVID-19 Dementia Diabetes mellitus Fall Hypertension Lumbar spondylosis Type 2 diabetes mellitus without complications Vitamin B 12 deficiency Vitamin D deficiency, unspecified Surgical History Surgical History History of back surgery History of knee replacement Hx of cholecystectomy Hx of tonsillectomy S/P cataract surgery Family History Family History Mother Family history of coronary artery disease Father , father of metastatic lung cancer Family history of coronary artery disease Other Family history of malignant neoplasm Social History Social History Social History: Patient lives with his in [place]. He has one child, and 3 grandchildren, however, one is . He elects his of 63 yearsTere to be his surrogate. He denies having any pets. Smoking status: Never smoker Alcohol intake: former Substance use: unknown Substance use type: does not use Last use: 20 plus years Lack of Transportation: No Lack of Food: Never True Current Housing: I Have Housing Concerned About Future Housing: No Difficulty Paying Gas/Electric Bills: No Difficulty Paying for Meds: No Currently Unemployed: No Education: High School Diploma/GED Difficulty w/ Childcare or Family Care: No Living arrangements: with family Occupation/Education: retired Additional occupation/education comments: Retired [employer] Gender identity (if verbalized by the patient): Male Sexual Orientation (if Verbalized by the Patient): Straight or Heterosexual Spiritual care concerns: No Agree to blood products: Yes Exam Narrative: APPEARANCE: No apparent distress. Head: atraumatic. EYES: EOMI, NOSE: Atraumatic NECK: Trachea midline RESPIRATORY: No increased rate of breathing CARDIOVASCULAR: RRR, ABDOMINAL: Non-distended MUSCULOSKELETAl: No obvious deformities NEURO: Alert. Moving 4/4 extremities SKIN:: 1 cm v-shaped skin tear over the left forearm PSYCHIATRIC: Normal affect Medical Decision Making MDM Narrative Medical decision making narrative: -Presentation: 87-year-old male presenting with an oozing skin tear. -DDX includes but is not limited to: skin tear, bleeding due to anticoagulation -Co-morbidities complicating care: on warfarin -Social determinants of health: retired -External Chart Review: none -Hx from independent Sources: none -Discussion of Management/Consultants: none -Independent interpretation of studies: none Dx tests considered but not ordered: none -Procedures: cautery using silver nitrate. Hemostasis achieved. -Shared decision making / Disposition: patient is discharged with return precautions. Discharge Plan Discharge Clinical Impression: Skin tear, Bleeding Patient Disposition: Home, Self-Care Condition: Stable Instructions: Antibiotic Form Additional Instructions: If your wound starts to rebleed please glenn direct pressure for 15-
[2023-02-15 20:50] VITALS: BP 140/80; PULSE 78; RESP 16; TEMP 36.6; O2SAT 98
[2023-02-15] MEDS: SILVER NITRATE (*SP) STICK 4 EACH TOPICAL (20:53)
== END 2023-02-15 20:54 | disposition home or self-care (01) ==
PROVIDERS: Emergency Provider Emergency Medicine; PCP Internal Medicine
DX: S41.112A Laceration without foreign body of left upper arm, initial encounter (principal); I10 Essential (primary) hypertension; I48.91 Unspecified atrial fibrillation; E11.9 Type 2 diabetes mellitus without complications; F03.90 Unspecified dementia, unspecified severity, without behavioral disturbance, psychotic disturbance, mood disturbance, and anxiety; Z79.01 Long term (current) use of anticoagulants; W45.8XXA Other foreign body or object entering through skin, initial encounter
CPT/HCPCS: 99283

== ENCOUNTER 2023-03-21 13:37 | Outpatient (RCR) | payer MEDICARE, SELFPAY ==
[2023-01-06 15:54] LABS: INR 1.8; Prothrombin Time 18.9 Seconds (9.50-12.10)
[2023-01-16 11:40] LABS: INR 1.7; Prothrombin Time 17.6 Seconds (9.50-12.10)
[2023-01-31 17:25] LABS: INR 3.1; Prothrombin Time 31.6 Seconds (9.50-12.10)
[2023-02-14 18:33] LABS: INR 3.6; Prothrombin Time 35.8 Seconds (9.50-12.10)
[2023-03-07 19:17] LABS: INR 0.9; Prothrombin Time 10.3 Seconds (9.50-12.10)
[2023-03-21 14:05] LABS: INR 0.9; Prothrombin Time 10.4 Seconds (9.50-12.10)
== END 2023-04-06 23:59 | disposition home or self-care (01) ==
LOC: CHSLAB 13:37
PROVIDERS: PCP Internal Medicine; Visit Provider Internal Medicine
DX: Z51.81 Encounter for therapeutic drug level monitoring (principal); Z79.01 Long term (current) use of anticoagulants
CPT/HCPCS: 36415; 85610

== ENCOUNTER 2023-06-14 12:31 | Outpatient (RCR) | payer MEDICARE, SELFPAY ==
[2023-04-10 15:13] LABS: INR 1.5; Prothrombin Time 16.1 Seconds (9.50-12.10)
[2023-04-22 17:55] LABS: INR 1.6; Prothrombin Time 17.4 Seconds (9.50-12.10)
[2023-05-09 09:11] LABS: INR 1.9; Prothrombin Time 20.2 Seconds (9.50-12.10)
[2023-05-29 09:08] LABS: INR 1.5; Prothrombin Time 15.9 Seconds (9.50-12.10)
[2023-06-14 12:54] LABS: INR 2.3; Prothrombin Time 23.4 Seconds (9.50-12.10)
== END 2023-07-09 23:59 | disposition home or self-care (01) ==
LOC: CHSLAB 12:31
PROVIDERS: PCP Internal Medicine; Visit Provider Internal Medicine
DX: Z51.81 Encounter for therapeutic drug level monitoring (principal); Z79.01 Long term (current) use of anticoagulants
CPT/HCPCS: 36415; 85610

== ENCOUNTER 2023-07-16 11:34 | Outpatient (CLI) | payer MEDICARE, SELFPAY ==
[2023-07-16 11:48] LABS: Basophils Absolute Auto 0.08 K/mm3 (0.00-0.10); Basophils Percent Auto 0.9 % (0.0-1.0); Eosinophils Absolute Auto 0.13 K/mm3 (0.02-0.50); Eosinophils Percent Auto 1.5 % (1.0-6.0); Hematocrit 34.2 % (37.0-46.0); Hemoglobin 11.3 g/dL (12.4-15.3); Immature Granulocyte Absolute 0.06 K/mm3 (0.00-0.00); Immature Granulocyte Percent A 0.7 % (0.0-0.0); Lymphocytes Absolute Auto 2.25 K/mm3 (1.10-4.50); Lymphocytes Percent Auto 25.2 % (18.0-42.0); Mean Corpuscular Hemoglobin 35.9 pg (27.0-31.0); Mean Corpuscular Volume 108.6 fL (78.0-102.0); Mean Platelet Volume 11.2 fl (8.7-11.0); Monocytes Absolute Auto 0.83 K/mm3 (0.10-0.90); Monocytes Percent Auto 9.3 % (2.0-11.0); Neutrophils Absolute Auto 5.6 K/mm3 (1.7-7.2); Neutrophils Percent Auto 62.4 % (50.0-70.0); Nucleated Red Blood Cells Absolute Auto 0.02 K/mm3 (0.00-0.00); Nucleated Red Blood Cells Perc 0.2 % (0-0.0); Platelet Count Result 288 K/mm3 (150-420); Red Blood Count 3.15 M/mm3 (4.70-6.10); Red Cell Distribution Width 17.7 % (11.6-14.4); White Blood Count 8.9 K/mm3 (4.8-10.8)
[2023-07-16 12:01] LABS: INR 1.9; Prothrombin Time 19.8 Seconds (9.50-12.10)
[2023-07-16 12:56] LABS: Alanine Aminotransferase 30 U/L (16-63); Albumin Level 3.7 g/dL (3.4-5.0); Alkaline Phosphatase 64 U/L (46-116); Anion Gap 4 mmol/L (8-16); Aspartate Amino Transferase 16 U/L (15-37); Bilirubin,Total 0.9 mg/dL (0.00-1.00); Blood Urea Nitrogen 48 mg/dL (7-18); Calcium 8.6 mg/dL (8.5-10.1); Carbon Dioxide 34 mmol/L (21-32); Chloride 104 mmol/L (98-108); Estimated Glomerular Filt Rate 45; Glucose 147 mg/dL (70-99); Magnesium 2.3 mg/dL (1.8-2.4); NT Pro B Type Natriuretic Pept 189 pg/mL (0-450); Osmolality Calculated 309 mOsm/kg (285-295); Potassium 4.7 mmol/L (3.5-5.1); Sodium 142 mmol/L (136-145); Total Protein 6.7 g/dL (6.4-8.2)
== END 2023-07-16 11:35 | disposition home or self-care (01) ==
PROVIDERS: PCP Internal Medicine; Visit Provider Internal Medicine
DX: I50.9 Heart failure, unspecified (principal); Z79.01 Long term (current) use of anticoagulants
CPT/HCPCS: 36415; 80053; 83735; 83880; 85025; 85610

== ENCOUNTER 2023-08-14 16:47 | Outpatient (CLI) | payer MEDICARE, SELFPAY ==
[2023-08-14 17:48] LABS: INR 2.2
[2023-08-14 18:14] LABS: Alanine Aminotransferase 28 U/L (16-63); Albumin Level 3.9 g/dL (3.4-5.0); Alkaline Phosphatase 48 U/L (46-116); Anion Gap 6 mmol/L (8-16); Aspartate Amino Transferase 14 U/L (15-37); Bilirubin,Total 0.6 mg/dL (0.00-1.00); Blood Urea Nitrogen 33 mg/dL (7-18); Calcium 8.9 mg/dL (8.5-10.1); Carbon Dioxide 31 mmol/L (21-32); Chloride 102 mmol/L (98-108); Estimated Glomerular Filt Rate 47; Glucose 137 mg/dL (70-99); Osmolality Calculated 297 mOsm/kg (285-295); Potassium 4.4 mmol/L (3.5-5.1); Sodium 139 mmol/L (136-145); Total Protein 6.7 g/dL (6.4-8.2)
== END 2023-08-14 16:48 | disposition home or self-care (01) ==
LOC: CHSLAB 16:49
PROVIDERS: PCP Internal Medicine; Visit Provider Internal Medicine
DX: R94.4 Abnormal results of kidney function studies (principal); Z79.01 Long term (current) use of anticoagulants
CPT/HCPCS: 36415; 80053; 85610

== ENCOUNTER 2023-10-23 12:32 | Outpatient (RCR) | payer MEDICARE, SELFPAY ==
[2023-09-25 11:17] LABS: Basophils Absolute Auto 0.07 K/mm3 (0.00-0.10); Basophils Percent Auto 1.1 % (0.0-1.0); Eosinophils Absolute Auto 0.19 K/mm3 (0.02-0.50); Hematocrit 34.5 % (37.0-46.0); Hemoglobin 11.2 g/dL (12.4-15.3); Immature Granulocyte Absolute 0.05 K/mm3 (0.00-0.00); Immature Granulocyte Percent A 0.8 % (0.0-0.0); Lymphocytes Absolute Auto 1.73 K/mm3 (1.10-4.50); Lymphocytes Percent Auto 27.2 % (18.0-42.0); Mean Corpuscular HGB Conc 32.5 g/dL (32.0-36.0); Mean Corpuscular Volume 107.8 fL (78.0-102.0); Monocytes Percent Auto 9.4 % (2.0-11.0); Neutrophils Absolute Auto 3.7 K/mm3 (1.7-7.2); Neutrophils Percent Auto 58.5 % (50.0-70.0); Nucleated Red Blood Cells Absolute Auto 0.03 K/mm3 (0.00-0.00); Nucleated Red Blood Cells Perc 0.5 % (0-0.0); Platelet Count Result 287 K/mm3 (150-420); Red Cell Distribution Width 16.8 % (11.6-14.4); White Blood Count 6.4 K/mm3 (4.8-10.8)
[2023-09-25 11:35] LABS: INR 2.5; Prothrombin Time 25.7 Seconds (9.50-12.10)
[2023-09-25 12:11] LABS: Alanine Aminotransferase 30 U/L (16-63); Albumin Level 3.6 g/dL (3.4-5.0); Alkaline Phosphatase 45 U/L (46-116); Anion Gap 9 mmol/L (8-16); Aspartate Amino Transferase 16 U/L (15-37); Bilirubin,Total 0.6 mg/dL (0.00-1.00); Blood Urea Nitrogen 35 mg/dL (7-18); Calcium 8.9 mg/dL (8.5-10.1); Carbon Dioxide 31 mmol/L (21-32); Chloride 106 mmol/L (98-108); Estimated Glomerular Filt Rate 55; Glucose 127 mg/dL (70-99); Osmolality Calculated 312 mOsm/kg (285-295); Potassium 4.7 mmol/L (3.5-5.1); Sodium 146 mmol/L (136-145); Total Protein 6.7 g/dL (6.4-8.2)
[2023-10-23 13:00] LABS: INR 2.3; Prothrombin Time 23.6 Seconds (9.50-12.10)
[2023-10-24 10:13] LABS: Basophils Absolute Auto 0.08 K/mm3 (0.00-0.10); Basophils Percent Auto 1.4 % (0.0-1.0); Eosinophils Percent Auto 3.5 % (1.0-6.0); Hematocrit 35.1 % (37.0-46.0); Hemoglobin 11.1 g/dL (12.4-15.3); Immature Granulocyte Absolute 0.03 K/mm3 (0.00-0.00); Immature Granulocyte Percent A 0.5 % (0.0-0.0); Lymphocytes Absolute Auto 2.17 K/mm3 (1.10-4.50); Lymphocytes Percent Auto 37.5 % (18.0-42.0); Mean Corpuscular HGB Conc 31.6 g/dL (32.0-36.0); Mean Corpuscular Hemoglobin 35.8 pg (27.0-31.0); Mean Corpuscular Volume 113.2 fL (78.0-102.0); Mean Platelet Volume 12.5 fl (8.7-11.0); Monocytes Absolute Auto 0.53 K/mm3 (0.10-0.90); Monocytes Percent Auto 9.2 % (2.0-11.0); Neutrophils Absolute Auto 2.8 K/mm3 (1.7-7.2); Neutrophils Percent Auto 47.9 % (50.0-70.0); Nucleated Red Blood Cells Absolute Auto 0.03 K/mm3 (0.00-0.00); Nucleated Red Blood Cells Perc 0.5 % (0-0.0); Platelet Count Result 300 K/mm3 (150-420); Red Cell Distribution Width 18.2 % (11.6-14.4); White Blood Count 5.8 K/mm3 (4.8-10.8)
== END 2023-12-24 23:59 | disposition home or self-care (01) ==
LOC: CHSLAB 12:32
PROVIDERS: PCP Internal Medicine; Visit Provider Internal Medicine
DX: Z51.81 Encounter for therapeutic drug level monitoring (principal); I48.0 Paroxysmal atrial fibrillation; Z79.01 Long term (current) use of anticoagulants
CPT/HCPCS: 36415; 80053; 85025; 85610

== ENCOUNTER 2023-10-27 13:47 | Outpatient (CLI) | payer MEDICARE, SELFPAY ==
[2023-10-27 14:08] LABS: Basophils Absolute Auto 0.09 K/mm3 (0.00-0.10); Basophils Percent Auto 1.2 % (0.0-1.0); Eosinophils Absolute Auto 0.26 K/mm3 (0.02-0.50); Eosinophils Percent Auto 3.4 % (1.0-6.0); Hematocrit 31.7 % (37.0-46.0); Hemoglobin 10.6 g/dL (12.4-15.3); Immature Granulocyte Absolute 0.08 K/mm3 (0.00-0.00); Immature Granulocyte Percent A 1.1 % (0.0-0.0); Lymphocytes Absolute Auto 2.44 K/mm3 (1.10-4.50); Lymphocytes Percent Auto 32.1 % (18.0-42.0); Mean Corpuscular HGB Conc 33.4 g/dL (32.0-36.0); Mean Corpuscular Hemoglobin 36.3 pg (27.0-31.0); Mean Corpuscular Volume 108.6 fL (78.0-102.0); Mean Platelet Volume 10.3 fl (8.7-11.0); Monocytes Absolute Auto 0.63 K/mm3 (0.10-0.90); Monocytes Percent Auto 8.3 % (2.0-11.0); Neutrophils Absolute Auto 4.1 K/mm3 (1.7-7.2); Neutrophils Percent Auto 53.9 % (50.0-70.0); Nucleated Red Blood Cells Absolute Auto 0.04 K/mm3 (0.00-0.00); Nucleated Red Blood Cells Perc 0.5 % (0-0.0); Platelet Count Result 262 K/mm3 (150-420); Red Blood Count 2.92 M/mm3 (4.70-6.10); Red Cell Distribution Width 17.4 % (11.6-14.4); White Blood Count 7.6 K/mm3 (4.8-10.8)
[2023-10-27 15:08] LABS: Lactate Dehydrogenase 178 U/L (85-227)
[2023-10-28 10:10] LABS: Immature Reticulocyte Fraction 21.8 % (2.0-16.52); Reticulocyte Hemoglobin Conten 36.9 pg (28.0-35.0); Reticulocyte Percent 1.61 % (0.50-1.50); Reticulocytes Absolute 0.05 M/mm3 (0.02-0.1)
[2023-10-29 13:04] LABS: Red Blood Cell Folate 781 ng/mL RBC (>280)
[2023-10-29 13:46] LABS: Methylmalonic Acid 146 nmol/L (87-318)
[2023-11-03 09:53] LABS: Reference Lab Test Name PETH
== END 2023-10-27 13:48 | disposition home or self-care (01) ==
LOC: CHSLAB 13:49
PROVIDERS: PCP Internal Medicine; Visit Provider Internal Medicine
DX: D64.89 Other specified anemias (principal); M47.816 Spondylosis without myelopathy or radiculopathy, lumbar region
CPT/HCPCS: 36415; 80321; 82747; 83615; 83921; 85025; 85046; G0480

== ENCOUNTER 2023-12-23 22:05 | Emergency (ER) | payer MEDICARE, SELFPAY ==
[2023-12-23 22:12] VITALS: BP 159/78; PULSE 74; RESP 18; TEMP 36.6; O2SAT 100
--- NOTE | 2023-12-23 22:31 | ED.FALL ---
HPI - Fall General Chief Complaint: Wound/Laceration Stated Complaint: Injury to R Ear Time Seen by Provider: 12/23/23 22:12 Source: patient Mode of arrival: ambulatory Limitations: no limitations History of Present Illness HPI Narrative: 88 year old male presents to the Emergency Department with laceration to upper right ear. Has continued to ooze. Patient takes Coumadin. patient had bent over to get child's ball that had rolled behind curtain and fell over. No loss of consciousness. Denies any other injury. Last tetanus 2-3 years ago. complaint: fall Onset (ago): hour(s) (4) Fall from: standing Fall witnessed: yes, by family Place fall occurred: home Loss of consciousness: none Symptoms prior to fall: none Context: other (bent over to poultry picker ball of child's that had rolled under curtains) Location of injury: other (right ear) Related Data Home Medications Medication Instructions Recorded Confirmed warfarin 1 mg tablet 1 mg PO DAILY 07/10/23 07/10/23 Allergies Allergy/AdvReac Type Severity Reaction Status Date / Time Penicillins Allergy Intermediate Unknown Verified 07/10/23 15:02 Review of Systems Review of Systems: All systems reviewed & are unremarkable except as noted in HPI and below Constitutional: Constitutional: Reports as per HPI Eyes: Eyes: Reports as per HPI ENT: Reports system reviewed and no additional complaints, except as documented Cardiovascular: Cardiovascular: Reports as per HPI Respiratory: Respiratory: Reports as per HPI Gastrointestinal: Gastrointestinal: Reports as per HPI Genitourinary: Genitourinary: Reports no additional male genitourinary complaints Musculoskeletal: Musculoskeletal: Reports no additional musculoskeletal complaints Integumentary/Breasts: Skin/Breast: Reports system reviewed and no additional complaints, except as docu Neurologic: Reports system reviewed and no additional complaints, except as documented PMF Past Medical History Medical History Arthritis Atrial fibrillation Benign essential HTN Community acquired pneumonia (~09/13/19) COVID-19 Dementia Diabetes mellitus Fall Hypertension Lumbar spondylosis Type 2 diabetes mellitus without complications Vitamin B 12 deficiency Vitamin D deficiency, unspecified Surgical History Surgical History History of back surgery History of knee replacement Hx of cholecystectomy Hx of tonsillectomy S/P cataract surgery Family History Family History Mother Family history of coronary artery disease Father , father of metastatic lung cancer Family history of coronary artery disease Other Family history of malignant neoplasm Social History Social History Social History: Patient lives with his in [place]. He has one child, and 3 grandchildren, however, one is . He elects his of 63 years, Tere to be his surrogate. He denies having any pets. 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
[2023-12-23 22:47] VITALS: BP 140/73; PULSE 80; RESP 18; O2SAT 97
== END 2023-12-23 22:47 | disposition home or self-care (01) ==
PROVIDERS: Emergency Provider Emergency Medicine; PCP Internal Medicine
DX: S01.311A Laceration without foreign body of right ear, initial encounter (principal); W19.XXXA Unspecified fall, initial encounter; I10 Essential (primary) hypertension; I48.91 Unspecified atrial fibrillation; F03.90 Unspecified dementia, unspecified severity, without behavioral disturbance, psychotic disturbance, mood disturbance, and anxiety; E53.8 Deficiency of other specified B group vitamins; E55.9 Vitamin D deficiency, unspecified; E11.9 Type 2 diabetes mellitus without complications; Z79.01 Long term (current) use of anticoagulants
CPT/HCPCS: 12011; 99282

== ENCOUNTER 2024-01-05 12:12 | Outpatient (CLI) | payer MEDICARE, SELFPAY ==
[2024-01-05 12:45] LABS: INR 2.1; Prothrombin Time 22.2 Seconds (9.50-12.1)
[2024-01-05 13:44] LABS: Basophils Absolute Auto 0.11 K/mm3 (0.00-0.10); Basophils Percent Auto 1.4 % (0.0-1.0); Eosinophils Absolute Auto 0.25 K/mm3 (0.02-0.50); Eosinophils Percent Auto 3.3 % (1.0-6.0); Hematocrit 33.2 % (37.0-46.0); Hemoglobin 10.8 g/dL (12.4-15.3); Immature Granulocyte Absolute 0.08 K/mm3 (0.00-0.00); Lymphocytes Absolute Auto 2.18 K/mm3 (1.10-4.50); Lymphocytes Percent Auto 28.6 % (18.0-42.0); Mean Corpuscular HGB Conc 32.5 g/dL (32-36); Mean Corpuscular Hemoglobin 35.4 pg (27.0-31.0); Mean Corpuscular Volume 108.9 fL (78.0-102.0); Mean Platelet Volume 11.2 fl (8.7-11.0); Monocytes Absolute Auto 0.68 K/mm3 (0.10-0.90); Monocytes Percent Auto 8.9 % (2.0-11.0); Neutrophils Absolute Auto 4.32 K/mm3 (1.70-7.20); Neutrophils Percent Auto 56.8 % (50.0-70.0); Nucleated Red Blood Cells Absolute Auto 0.03 K/mm3 (0.00-0.00); Nucleated Red Blood Cells Perc 0.4 % (0-0.0); Platelet Count Result 264 K/mm3 (150-420); Red Blood Count 3.05 M/mm3 (4.70-6.10); Red Cell Distribution Width 17.8 % (11.6-14.4); White Blood Count 7.6 K/mm3 (4.8-10.8)
== END 2024-01-05 12:13 | disposition home or self-care (01) ==
LOC: CHSLAB 12:14
PROVIDERS: PCP Internal Medicine; Visit Provider Internal Medicine
DX: I48.0 Paroxysmal atrial fibrillation (principal); I50.9 Heart failure, unspecified; Z79.01 Long term (current) use of anticoagulants
CPT/HCPCS: 36415; 85025; 85610

== ENCOUNTER 2024-01-10 14:48 | Emergency (ER) | payer MEDICARE, SELFPAY ==
[2024-01-10] VITALS (11 sets, daily range): BP systolic 73–124; BP diastolic 44–61; PULSE 76–87; RESP 16–17; TEMP 36.4–36.5; O2SAT 93–99
--- NOTE | ~2024-01-10 | CT_ITS ---
EXAMINATION: CT brain wo con DATE: 01/10/2024 15:44 INDICATION: Onset today, Fall- landed on top of head/ denies headache . TECHNIQUE: Computed tomography (CT) of the head was performed without intravenous contrast. The mA wa s adjusted according to patient size. Iterative reconstruction technique was employed. The dose-lengt h product was 681.00 mGy-cm. COMPARISON: 07/31/2022. FINDINGS: No acute intracranial hemorrhage or extra-axial fluid collection. No hydrocephalus, mass, or herniation. No acute ischemic infarct. Unremarkable dural venous sinus attenuation. No acute osseous abnormality. The aerated spaces are clear. Moderate atrophy and chronic white matter change. Atherosclerotic intracranial calcification. Bilater al lens replacements. Focal right posterior frontal encephalomalacia. IMPRESSION: No acute intracranial process. Reviewed, dictated and finalized at location K.
--- NOTE | ~2024-01-10 | CT_ITS ---
EXAMINATION: CT diagnostic chest w con DATE: 01/10/2024 17:28 INDICATION: Lt. side fractured ribs/SOB, possible hemothorax TECHNIQUE: Computed tomography (CT) of the chest was performed with 100 mL Omnipaque-350 intravenous contrast. Automated exposure control and iterative reconstruction technique were employed. The dose-l ength product was 373.71 mGy-cm. COMPARISON: X-ray chest, same date; [facility]PA 03/06/2022. FINDINGS: CHEST: Exam limited by beam hardening from arm down positioning. Thoracic aorta: No significant dilation or calcification. Lung parenchyma and airways: Large right lower lung air cyst. Bilateral dependent scar/atelectasis.. Thoracic inlet, axillae and chest wall: No thyroid or soft tissue mass. No axillary lymphadenopathy. Mediastinum: No mass or lymphadenopathy. Heart and pericardium: Enlarged. No pericardial effusion. Coronary artery calcifications: Heavy. Pleura: Small intermediate density subpleural fluid collection on the left.. Upper abdomen: Small-moderate upper abdominal ascites with fluid noted surrounding the liver and sple en. The perispinal fluid is hyperdense likely indicating clot. Thoracic bones: Nondisplaced and minimally displaced fractures of the posterolateral left sixth throu gh ninth ribs. IMPRESSION: Nondisplaced and mildly displaced fractures of the left posterolateral sixth through ninth ribs. Small subpleural hemothorax. Perisplenic fluid with hyperdense material, likely represented blood clot, concerning for splenic inj ury. Recommend CT of the abdomen and pelvis with contrast for further evaluation. Small volume ascites/hemoperitoneum. Results reported telephonically to Dr. Martin by Dr. Gallegos at 5:35 PM on 01/10/2024. Reviewed, dictated and finalized at location K. IMPRESSION: Nondisplaced and mildly displaced fractures of the left posterolateral sixth th rough ninth ribs. Small subpleural hemothorax. Perisplenic fluid with hyperdense material, likely represented blood clot, conc erning for splenic injury. Recommend CT of the abdomen and pelvis with contrast for further evaluation. Small volume ascites/hemoperitoneum. Results reported telephonically to Dr. Martin by Dr. Gallegos at 5:35 PM on 024.
--- NOTE | ~2024-01-10 | XR_ITS ---
EXAM: XR shoulder LT min 2V DATE: 01/10/2024 15:46 HISTORY: onset today, Fall- Lt. shoulder pain . COMPARISON: 07/23/2022. FINDINGS: Decreased mineralization. No fracture or dislocation. No lytic or blastic lesion. Likely r otator cuff pathology. Severe left glenohumeral osteoarthritis with loose bodies. Mild degenerative c hange at the AC joint. No erosion or periosteal change. Soft tissues within normal limits. IMPRESSION: No acute osseous finding the left shoulder. Reviewed, dictated and finalized at location K.
--- NOTE | ~2024-01-10 | XR_ITS ---
EXAMINATION: [id number] Exam Date/Time: 01/10/2024 15:22 CDT HISTORY: onset today, Fall- Lt. sided rib pain/sob Comparison: 11/07/2022. RESULT: Lines, tubes, and devices: None. Lungs and pleura: Low lung volumes with crowding. Segmental left basilar airspace disease. Mild left costophrenic angle blunting. Cardiomediastinal silhouette: Stable. Other: No acute upper abdominal finding. Decreased mineralization. Oblique, minimally displaced frac ture of the left posterolateral eighth rib IMPRESSION: Left basilar airspace disease may represent atelectasis, consolidation of pneumonia/aspiration, or co ntusion in the setting of trauma. Oblique, minimally displaced fracture of the left posterolateral ei ghth rib. Small left pleural fluid collection, may represent small hemothorax in the setting of traum a. Reviewed, dictated and finalized at location K. IMPRESSION: Left basilar airspace disease may represent atelectasis, consolidation of pneum onia/aspiration, or contusion in the setting of trauma. Oblique, minimally disp laced fracture of the left posterolateral eighth rib. Small left pleural fluid collection, may represent small hemothorax in the setting of trauma.
--- NOTE | 2024-01-10 15:09 | ED.FALL ---
HPI - Fall General Chief Complaint: Fall Stated Complaint: FALL Time Seen by Provider: 01/10/24 14:50 Source: patient Mode of arrival: ambulatory Limitations: no limitations History of Present Illness HPI Narrative: patient is a 8-year-old male with a significant past medical history that presents today with a fall. Patient fell apart on of a food restaurant place and fell into a car. Patient follow with us shortness of left side and hurt his ribs left shoulder and did hit his on a tire the car next to them. He denies any head pain but he does have pain in the left shoulder and left ribs. Denies any other symptoms. He does take Tylenol 3 daily for pain. MD complaint: fall Onset (ago): hour(s) Fall from: standing Fall witnessed: yes, by family Place fall occurred: street Loss of consciousness: none Prolonged down time: no Symptoms prior to fall: none Context: tripped/slipped Location of injury: head and other ( Shoulder left, left wrist) Severity: severe Severity scale (1-10): 10 Quality: sharp and stabbing Related Data Home Medications Medication Instructions Recorded Confirmed warfarin 1 mg tablet 1 mg PO DAILY 07/10/23 01/10/24 Allergies Allergy/AdvReac Type Severity Reaction Status Date / Time Penicillins Allergy Intermediate Unknown Verified 01/10/24 14:59 Review of Systems Review of Systems: All systems reviewed & are unremarkable except as noted in HPI and below Constitutional: Constitutional: Reports as per HPI Eyes: Eyes: Reports no additional eye complaints ENT: Reports system reviewed and no additional complaints, except as documented Cardiovascular: Cardiovascular: Reports no additional cardiovascular complaints Respiratory: Respiratory: Reports no additional respiratory complaints Gastrointestinal: Gastrointestinal: Reports no additional gastrointestinal complaints Genitourinary: Genitourinary: Reports no additional male genitourinary complaints Musculoskeletal: Musculoskeletal: Reports as per HPI and Reports arthralgias Integumentary/Breasts: Skin/Breast: Reports system reviewed and no additional complaints, except as docu Neurologic: Reports system reviewed and no additional complaints, except as documented Psychiatric: Psychiatric: Reports no additional psychiatric complaints Endocrine: Endocrine: Reports no additional endocrine complaints Hematologic/Lymphatic: Hematologic/Lymphatic: Reports no additional hematologic/lymphatic complaints Allergic/Immunologic: Allergic/Immunologic: Reports no additional allergic/immunologic complaints [facility] Past Medical History Medical History Arthritis Atrial fibrillation Benign essential HTN Community acquired pneumonia (~09/13/19) COVID-19 Dementia Diabetes mellitus Fall Hypertension Lumbar spondylosis Type 2 diabetes mellitus without complications Vitamin B 12 deficiency Vitamin D deficiency, unspecified Surgical History Surgical History History of back surgery History of knee replacement Hx of cholecystectomy Hx of tonsillectomy S/P cataract surgery Family History Family History Mother Family history of coronary artery disease Father , father of metastatic lung cancer Family history of coronary artery disease Other Family history of malignant neoplasm Social History Social History Social History: Patient lives with his in [place]. He has one child, and 3 grandchildren, however, one is . He elects his of 63 years, Tere to be his surrogate. He denies having any pets. Smoking status: Never smoker Alcohol intake: former Substance use: unknown Substance use type: does not use Last use: 20 plus years Lack of Transportation: No Lack of Food: Never True
--- NOTE | 2024-01-10 15:13 | PC.NURSE ---
Per ERP hold Toradol shot until Head CT is resulted.
[2024-01-10] MEDS: HYDROcodone/acetaminophen (*CRX) 5-325 MG TABLET 1 TAB PO (15:15)
[2024-01-10] MEDS: KETOROLAC (*BKC) 60 MG/2 ML VIAL IM (16:02)
--- NOTE | 2024-01-10 16:30 | PC.NURSE ---
ERP notified of decreased blood pressure, fluids to be ordered.
[2024-01-10] MEDS: SODIUM CHLORIDE 0.9% IV 1,000 ML 999 ML IV CONT ×2 (16:37→18:08)
[2024-01-10 16:44] LABS: Anion Gap 6 mmol/L (4-12); Blood Urea Nitrogen 36 mg/dL (7-18); Calcium 8.5 mg/dL (8.5-10.1); Carbon Dioxide 30 mmol/L (21-32); Chloride 105 mmol/L (98-108); Estimated Glomerular Filt Rate 35; Glucose 181 mg/dL (70-99); Osmolality Calculated 305 mOsm/kg (285-295); Potassium 4.8 mmol/L (3.5-5.1); Sodium 141 mmol/L (136-145)
[2024-01-10 17:51] LABS: Hematocrit 29.3 % (37.0-46.0); Hemoglobin 9.5 g/dL (12.4-15.3); Mean Corpuscular HGB Conc 32.4 g/dL (32-36); Mean Corpuscular Hemoglobin 35.7 pg (27.0-31.0); Mean Corpuscular Volume 110.2 fL (78.0-102.0); Mean Platelet Volume 11.7 fl (8.7-11.0); Platelet Count Result 309 K/mm3 (150-420); Red Blood Count 2.66 M/mm3 (4.70-6.10)
[2024-01-10 17:55] LABS: Lipase 22 U/L (16-77)
[2024-01-10 18:01] LABS: White Blood Count 20.2 K/mm3 (4.8-10.8)
[2024-01-10 18:05] LABS: Lactic Acid Reflex 1.9 mmol/L (0.4-2.0)
[2024-01-10 18:16] LABS: INR 2.4; Prothrombin Time 24.4 Seconds (9.50-12.1)
[2024-01-10 19:07] LABS: Total Cells Counted 100
[2024-01-10 19:08] LABS: Band Neutrophils Percent 0 % (0-6); Basophils Percent Manual 1 % (0-1); Lymphocytes Absolute Manual 1.81 K/mm3 (1.1-4.5); Lymphocytes Percent Manual 9 % (18-44); Monocytes Absolute Manual 1.01 K/mm3 (0.1-0.90); Monocytes Percent Manual 5 % (3-9); Neutrophils Absolute Manual 17.17 K/mm3 (1.3-6.7); Neutrophils Percent Manual 85 % (46-73); Platelet Estimate Adequate (Adequate); Schistocytes None Seen
== END 2024-01-10 18:20 | disposition short-term general hospital (02) ==
PROVIDERS: Emergency Provider Family Medicine; PCP Internal Medicine
DX: S36.039A Unspecified laceration of spleen, initial encounter (principal); S27.1XXA Traumatic hemothorax, initial encounter; S22.42XA Multiple fractures of ribs, left side, initial encounter for closed fracture; W01.198A Fall on same level from slipping, tripping and stumbling with subsequent striking against other object, initial encounter; I48.91 Unspecified atrial fibrillation; E11.9 Type 2 diabetes mellitus without complications; F03.90 Unspecified dementia, unspecified severity, without behavioral disturbance, psychotic disturbance, mood disturbance, and anxiety; I10 Essential (primary) hypertension; E55.9 Vitamin D deficiency, unspecified; E53.8 Deficiency of other specified B group vitamins
CPT/HCPCS: 36415; 70450; 71101; 71260; 73030; 80048; 83605; 83690; 85025; 85610; 96360; 96372; 99285; A9270; J1885; J7030; Q9967

== ENCOUNTER 2024-02-09 10:48 | Emergency (ER) | payer MEDICARE, SELFPAY ==
[2024-02-09] VITALS (33 sets, daily range): BP systolic 95–127; BP diastolic 49–62; PULSE 71–87; RESP 10–20; TEMP 36.8; O2SAT 98–100
--- NOTE | ~2024-02-09 | XR_ITS ---
Clinical Indication: Chest pain AP and lateral views of the chest: Comparison: 11/07/2022 Findings: Minimal left pleural effusion present. Right lung clear. Cardiomediastinal silhouette is w ithin normal limits. Bones and soft tissues are unremarkable. Impression: . Minimal left pleural effusion. Reviewed, dictated and finalized at [facility]. Impression: . Minimal left pleural effusion.
--- NOTE | 2024-02-09 10:59 | ECG_ITS ---
Test Date: 2024-02-09 11:01:59 Measurements Intervals [place] Rate: 82 P: 40 DC: 187 QRS: -34 QRSD: 154 T: 33 QT: 388 QTc: 455 Interpretive Statements SINUS RHYTHM MARKED LEFT AXIS DEVIATION [QRS AXIS < -30] RIGHT BUNDLE BRANCH BLOCK [120+ ms QRS DURATION, UPRIGHT V1, 40+ ms S IN I/aVL/V4/V5/V6] PREVIOUS INFERIOR WALL MO ABNORMAL ECG No previous ECG available for comparison Electronically Signed On 02-09-2024 13:07:01 CDT by Uriel Cancino M.D.
[2024-02-09 11:14] LABS: Hematocrit 29.1 % (42.0-52.0); Hemoglobin 8.9 g/dL (14.0-18.0); Mean Corpuscular HGB Conc 30.6 g/dl (32-36); Mean Corpuscular Hemoglobin 32.8 pg (26-34); Mean Corpuscular Volume 107.4 fl (80-100); Mean Platelet Volume 10.9 fl (7.4-10.4); Platelet Count Result 181 k/mm3 (150-375); Red Blood Count 2.71 M/mm3 (4.6-6.20); Red Cell Distribution Width 22.2 % (11.5-14.5)
[2024-02-09 11:24] LABS: Band Neutrophils Percent 4 % (0-6); Eosinophils Percent Manual 2 % (0-4); Monocytes Percent Manual 4 % (3-9); Neutrophils Percent Manual 70 % (46-73); Nucleated Red Blood Cells 1 %; Platelet Estimate Adequate (Adequate); Schistocytes None Seen; Total Cells Counted 100
[2024-02-09 11:25] LABS: Anisocytosis 1+; Ovalocytes 1+; Tear Drop Cells 1+
[2024-02-09 11:26] LABS: Prothrombin Time 13.8 Seconds (11.1-14.7)
[2024-02-09 11:27] LABS: Partial Thromboplastin Time 34.5 Seconds (22.3-36.8)
[2024-02-09 11:30] LABS: Alanine Aminotransferase 14 U/L (6-50); Albumin Level 3.3 g/dL (3.5-5.1); Alkaline Phosphatase 70 U/L (38-126); Anion Gap -1 mmol/L (4-12); Aspartate Amino Transferase 20 U/L (17-59); Bilirubin,Total 0.6 mg/dL (0.2-1.3); Blood Urea Nitrogen 29 mg/dL (9-20); Calcium 8.4 mg/dL (8.4-10.2); Carbon Dioxide 35 mmol/L (22-30); Chloride 105 mmol/L (98-107); Estimated CRCL calculation 35 ml/min; Estimated Glomerular Filt Rate 57; Glucose 95 mg/dL (65-110); Lipase 48 U/L (23-300); Potassium 4.2 mmol/L (3.4-5.0); Sodium 139 mmol/L (137-145)
[2024-02-09 11:41] LABS: Troponin I 0.013 ng/mL (0.000-0.034)
[2024-02-09] MEDS: ALBUTEROL SULFATE NEB 2.5 MG/3 ML INH INHALATION (11:53)
[2024-02-09] MEDS: IPRATROPIUM BR 0.02% INH SOLN 0.5 MG/2.5 ML VIAL INHALATION (11:53)
--- NOTE | 2024-02-09 13:51 | ECG_ITS ---
Test Date: 2024-02-09 13:55:25 Measurements Intervals [place] Rate: 82 P: 164 CO: 114 QRS: -32 QRSD: 66 T: 0 QT: 178 QTc: 208 Interpretive Statements SINUS RHYTHM WITH SHORT CO INTERVAL LOW QRS VOLTAGE IN PRECORDIAL LEADS [QRS DEFLECTION < 1.0 mV IN CHEST LEADS] RIGHT BUNDLE BRANCH BLOCK INFERIOR MYOCARDIAL INFARCTION , OF INDETERMINATE AGE [40+ ms Q WAVE AND/OR ST/T ABNORMALITY IN II/aVF] Compared to ECG 02/09/2024 11:01:59 NO SIGNIFICANT CHANGES Electronically Signed On 02-10-2024 10:44:22 CDT by Moon Joaquin M.D.
[2024-02-09 14:21] LABS: Troponin I 0.012 ng/mL (0.000-0.034)
--- NOTE | 2024-02-09 15:08 | ED.GENADULT ---
HPI - General Adult General Chief complaint: Chest Pain Stated complaint: L sided chest pain Time Seen by Provider: 02/09/24 11:02 History of Present Illness HPI narrative: Patient is an 88-year-old male who presents ER with left-sided chest pain. Sharp. Worse with physical movements and deep breath. Had a recent fall that resulted in rib fractures. Pain was worse this morning. He is oxygen dependent. No lower extremity swelling. no additional concerns. Apparently patient did have an elevated troponin recently. Related Data Home Medications Medication Instructions Recorded Confirmed warfarin 1 mg tablet 1 mg PO DAILY 07/10/23 01/10/24 Allergies Allergy/AdvReac Type Severity Reaction Status Date / Time Penicillins Allergy Intermediate Unknown Verified 02/09/24 11:06 Review of Systems Review of Systems: All systems reviewed & are unremarkable except as noted in HPI and below Constitutional: Constitutional: Reports no additional constitutional complaints ENT: Reports system reviewed and no additional complaints, except as documented Cardiovascular: Cardiovascular: Reports chest pain, Denies rapid heart rate and Denies radiating jaw, neck or arm pain Respiratory: Respiratory: Reports no additional respiratory complaints Musculoskeletal: Musculoskeletal: Reports no additional musculoskeletal complaints [facility] Past Medical History Medical History Arthritis Atrial fibrillation Benign essential HTN Community acquired pneumonia (~09/13/19) COVID-19 Dementia Diabetes mellitus Fall Hypertension Lumbar spondylosis Type 2 diabetes mellitus without complications Vitamin B 12 deficiency Vitamin D deficiency, unspecified Surgical History Surgical History History of back surgery History of knee replacement Hx of cholecystectomy Hx of tonsillectomy S/P cataract surgery Family History Family History Mother Family history of coronary artery disease Father , father of metastatic lung cancer Family history of coronary artery disease Other Family history of malignant neoplasm Social History Social History Social History: Patient lives with his in [place]. He has one child, and 3 grandchildren, however, one is . He elects his of 63 years, Tere to be his surrogate. He denies having any pets. 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 HEAD: Normocephalic, atraumatic. ENT: Mucous membranes moist. NECK: Supple. CHEST: Clear to auscultation. No respiratory distress. Tender palpation to left chest wall. HEART: Regular rate and rhythm. Normal peripheral pulses. ABDOMEN: Soft, nontender, nondistended. EXTREMITIES: Normal range of motion. No edema. SKIN: Warm, dry, no rash. NEURO: Alert and oriented x3. PSYCH: Normal mood and affect. Course Course Emergency Course: Patient informed of results. Troponins negative x2. Symptoms seem v
[2024-02-09] MEDS: HYDROcodone/acetaminophen (*CRX) 5-325 MG TABLET 1 TAB PO (16:01)
== END 2024-02-09 17:02 | disposition home or self-care (01) ==
PROVIDERS: Emergency Provider Emergency Medicine; PCP Internal Medicine
DX: R07.89 Other chest pain (principal); F03.90 Unspecified dementia, unspecified severity, without behavioral disturbance, psychotic disturbance, mood disturbance, and anxiety; I48.91 Unspecified atrial fibrillation; I10 Essential (primary) hypertension; E11.9 Type 2 diabetes mellitus without complications; E53.8 Deficiency of other specified B group vitamins; E55.9 Vitamin D deficiency, unspecified; M19.90 Unspecified osteoarthritis, unspecified site; Z96.659 Presence of unspecified artificial knee joint; Z87.01 Personal history of pneumonia (recurrent); Z86.16 Personal history of COVID-19; Z90.49 Acquired absence of other specified parts of digestive tract; Z98.49 Cataract extraction status, unspecified eye; Z79.01 Long term (current) use of anticoagulants; I45.10 Unspecified right bundle-branch block; R94.31 Abnormal electrocardiogram [ECG] [EKG]
CPT/HCPCS: 36415; 71046; 80053; 83690; 84484; 85025; 85610; 85730; 93005; 94640; 99284; A9270

== ENCOUNTER 2024-03-29 16:10 | Outpatient (CLI) | payer MEDICARE, SELFPAY ==
--- NOTE | ~2024-03-29 | XR_ITS ---
3 VIEWS LUMBAR SPINE Ordering provider: Gi Maria, TIRE MANAGER History: . LOW BACK PAIN . Comparison: None. FINDINGS: VERTEBRAL BODIES:Levoscoliosis. Degenerative changes of the spine. Loss of volume of L3 and L1 which is acute in L1 and possibly chronic in L3. DISK SPACES: Narrowing of all the disc spaces. SOFT TISSUES: Vascular calcification. IVC filter is noted. Possible right kidney stone. IMPRESSION: Highly suggestive acute compression fracture of L1. Compression fracture of L3 which is increased com pared to the previous examination. Highly suggestive right kidney stone. Multilevel degenerative disc disease. Reviewed, dictated and finalized at location A. IMPRESSION: Highly suggestive acute compression fracture of L1. Compression fracture of L3 which is increased compared to the previous examination. Highly suggestive right kidney stone. Multilevel degenerative disc disease.
== END 2024-03-29 16:11 | disposition home or self-care (01) ==
PROVIDERS: PCP Internal Medicine; Visit Provider Nurse Practitioner Family
DX: M54.50 Low back pain, unspecified (principal); M51.37 Other intervertebral disc degeneration, lumbosacral region
CPT/HCPCS: 72100

== ENCOUNTER 2024-04-06 10:00 | Outpatient (CLI) | payer MEDICARE, SELFPAY ==
--- NOTE | ~2024-04-06 | MR_ITS ---
EXAMINATION: MR lumbar spine wo con DATE: 04/06/2024 10:56 INDICATION: Lumbar compression fracture. TECHNIQUE: Magnetic resonance imaging (MRI) of the lumbar spine was performed without intravenous con trast. COMPARISON: Lumbar spine MRI 07/06/2022 FINDINGS: There is 22 degrees dextroscoliosis of lumbar spine. There is 3 mm retrolisthesis of L1 on L2, 4 mm retrolisthesis of L2 on L3, 7 mm retrolisthesis of L3 on L4, and 5 mm retrolisthesis of L4 o n L5. There is a burst fracture of superior endplate of T12 with less than 1/5 loss of height and josé miguel ma-like marrow signal intensity. There is a chronic burst fracture of L1 with 2/5 loss of height. The re is mildly decreased disc height at T12-L1 and severely decreased disc height from L1-L2 through L4 -L5. The distal spinal cord signal intensity is normal. The conus medullaris is at L1. There are cyst s in right kidney measuring up to 6.3 cm. The following disc levels are specifically discussed: L1-L2: The disc is bulging. There is severe bilateral facet joint osteoarthritis. There is mild bilat eral neural foraminal stenosis. There is mild central canal stenosis. L2-L3: The disc is bulging and has an annular fissure. There is moderate right and severe left facet joint osteoarthritis. There is mild bilateral neural foraminal stenosis. There is mild central canal stenosis. L3-L4: The disc is bulging. There is severe bilateral facet joint osteoarthritis. There is moderate r ight and severe left neural foraminal stenosis. There is mild central canal stenosis with posterior d ecompression. L4-L5: The disc is bulging and has an annular fissure. There is severe bilateral facet joint osteoart hritis. There is moderate bilateral neural foraminal stenosis. There is mild central canal stenosis w ith posterior decompression. L5-S1: The disc is bulging. There is severe bilateral facet joint osteoarthritis. There is mild bilat eral neural foraminal stenosis. There is mild central canal stenosis. IMPRESSION: 1. Acute versus subacute T12 burst fracture. 2. Severe lumbar spondylosis, stable from 07/06/22. 3. Lumbar dextroscoliosis. Reviewed, dictated and finalized at location A.
== END 2024-04-06 10:01 ==
LOC: GOSHIMG 10:01
PROVIDERS: PCP Internal Medicine; Visit Provider Pain Medicine Pain Medicine
DX: S32.000A Wedge compression fracture of unspecified lumbar vertebra, initial encounter for closed fracture (principal); X58.XXXA Exposure to other specified factors, initial encounter
CPT/HCPCS: 72148

== ENCOUNTER 2024-04-27 08:50 | Outpatient (CLI) | payer MEDICARE, SELFPAY ==
--- NOTE | ~2024-04-27 | CT_ITS ---
EXAMINATION: CTA brain DATE: 04/27/2024 09:50 INDICATION: Fall. Blurred vision. Dilated left pupil. TECHNIQUE: Computed tomographic angiography (CTA) of the head was performed without and with 100 mL O mnipaque-350 intravenous contrast. Automated exposure control and iterative reconstruction technique were employed. The dose-length product was 1479.73 mGy-cm. Maximum intensity projection 3D reconstru ctions were created. Volume-rendered 3D reconstructions of the intracranial arteries were created by the technologist on a separate workstation. COMPARISON: Head CT 01/10/2024 FINDINGS: There are scattered areas of low attenuation in the cerebral white matter. There is no intr acranial hemorrhage, acute infarction, or abnormal intracranial mass lesion. The ventricles are candelario l in size. There are likely changes of ocular lens replacement surgeries. There is mild mucosal thick ening in the ethmoid sinuses. The mastoid air cells are normal. The vertebral arteries are codominant . There is no significant stenosis of basilar artery or the posterior cerebral arteries. The posterio r communicating arteries are normal. There is no significant stenosis of the intracranial internal ar teries or anterior or middle cerebral arteries. Anterior communicating artery is normal. There is no aneurysm. IMPRESSION: 1. Moderate nonspecific cerebral white matter disease, which likely represents chronic small vessel i schemic disease. 2. No aneurysm or significant intracranial arterial stenosis. Reviewed, dictated and finalized at location A. IMPRESSION: 1. Moderate nonspecific cerebral white matter disease, which likely represents chronic small vessel ischemic disease. 2. No aneurysm or significant intracranial arterial stenosis.
[2024-04-27 09:10] LABS: Estimated Glomerular Filt Rate > 60
== END 2024-04-27 08:51 | disposition home or self-care (01) ==
LOC: CHSIMG 08:51
PROVIDERS: PCP Internal Medicine; Visit Provider Neurological Surgery
DX: H53.8 Other visual disturbances (principal); R90.82 White matter disease, unspecified
CPT/HCPCS: 70496; Q9967

== ENCOUNTER 2024-05-05 10:37 | Outpatient (CLI) | payer MEDICARE, SELFPAY ==
--- NOTE | ~2024-05-05 | XR_ITS ---
EXAMINATION: XR lumbar spine 2-3V DATE: 05/05/2024 10:52 INDICATION: Low back pain. TECHNIQUE: 2 views of lumbar spine including standing views were obtained. COMPARISON: Lumbar spine radiograph 03/29/2024, MRI 04/06/2024 FINDINGS: There is 27 degrees dextroscoliosis of lumbar spine. There is 5 mm retrolisthesis of L3 on L4 and L4 on L5. There is a burst fracture of T12 with changes of vertebroplasty. There is a chronic compression fracture of L1. There is severely decreased disc height from L1-L2 through L4-L5 with end plate remodeling. There is multilevel severe facet joint osteoarthritis. 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 There are surgical clips and embolization coils in the abdomen. IMPRESSION: 1. Severe lumbar spondylosis. 2. Thoracolumbar dextroscoliosis. Reviewed, dictated and finalized at location A.
== END 2024-05-05 10:38 | disposition home or self-care (01) ==
LOC: MICIMG 10:39
PROVIDERS: PCP Internal Medicine; Visit Provider Nurse Practitioner Family
DX: M47.896 Other spondylosis, lumbar region (principal)
CPT/HCPCS: 72100